=== PATIENT | male | born 1955 | race Caucasian/White ===

== ENCOUNTER 2020-03-06 14:20 | Emergency (ER) | payer MEDICARE, MEDICAID, SELFPAY ==
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
[2020-03-06 14:27] VITALS: BP 118/72; PULSE 81; RESP 20; TEMP 36.7; O2SAT 96
--- NOTE | 2020-03-06 14:30 | PC.NURSE ---
ERP SPEAKS WITH TWO FAMILY MEMBERS PATIENT HAS MEMORY PROBLEMS S/P BRAIN TUMOR REMOVAL. PT APPROPRIATE AND COOPERATIVE WITH CARE.
[2020-03-06 15:05] LABS: Basophils Absolute Auto 0.05 K/mm3 (0.00-0.10); Basophils Percent Auto 0.5 % (0.0-1.0); Eosinophils Absolute Auto 0.13 K/mm3 (0.02-0.50); Eosinophils Percent Auto 1.2 % (1.0-6.0); Hematocrit 37.7 % (40.0-54.0); Hemoglobin 12.2 g/dL (14.0-18.0); Immature Granulocyte Absolute 0.02 K/mm3 (0.00-0.00); Immature Granulocyte Percent A 0.2 % (0.0-0.0); Lymphocytes Absolute Auto 2.06 K/mm3 (1.10-4.50); Lymphocytes Percent Auto 19.8 % (18.0-42.0); Mean Corpuscular HGB Conc 32.4 g/dL (32.0-36.0); Mean Corpuscular Volume 92.9 fL (78.0-102.0); Mean Platelet Volume 9.6 fl (8.7-11.0); Monocytes Absolute Auto 0.77 K/mm3 (0.10-0.90); Monocytes Percent Auto 7.4 % (2.0-11.0); Neutrophils Absolute Auto 7.4 K/mm3 (1.7-7.2); Neutrophils Percent Auto 70.9 % (50.0-70.0); Platelet Count Result 259 K/mm3 (150-420); Red Blood Count 4.06 M/mm3 (4.70-6.10); Red Cell Distribution Width 13.9 % (11.6-14.4); White Blood Count 10.4 K/mm3 (4.8-10.8)
[2020-03-06 15:23] LABS: Alanine Aminotransferase 14 U/L (16-63); Albumin Level 2.9 g/dL (3.4-5.0); Alkaline Phosphatase 110 U/L (46-116); Anion Gap 7.3 mmol/L (7-16); Aspartate Amino Transferase 16 U/L (15-37); Bilirubin,Total 0.3 mg/dL (0.00-1.00); Blood Urea Nitrogen 11 mg/dL (7-18); Calcium 8.2 mg/dL (8.5-10.1); Carbon Dioxide 33 mmol/L (21-32); Chloride 106 mmol/L (98-108); Estimated Glomerular Filt Rate > 60; Glucose 89 mg/dL (70-99); Osmolality Calculated 292 mOsm/kg (285-295); Potassium 4.3 mmol/L (3.5-5.1); Sodium 142 mmol/L (136-145); Total Protein 5.7 g/dL (6.4-8.2)
[2020-03-06 15:26] LABS: Ammonia < 10 umol/L (11-32); Ethanol < 3 mg/dL (0-6)
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
[2020-03-06 16:50] VITALS: RESP 15
== END 2020-03-06 16:51 | disposition home or self-care (01) ==
PROVIDERS: Emergency Provider Family Medicine; PCP Nurse Practitioner Family
DX: S06.0X9A Concussion with loss of consciousness of unspecified duration, initial encounter (principal); V40.0XXA Car driver injured in collision with pedestrian or animal in nontraffic accident, initial encounter; S09.22XA Traumatic rupture of left ear drum, initial encounter; M54.2 Cervicalgia; I10 Essential (primary) hypertension
CPT/HCPCS: 36415; 70450; 72125; 80053; 80307; 82140; 85025; 99283; 99284

== ENCOUNTER 2020-12-31 10:55 | Inpatient (IN) | payer MEDICARE, MEDICAID, SELFPAY ==
[2020-12-31] VITALS (31 sets, daily range): BP systolic 83–115; BP diastolic 49–75; PULSE 57–99; RESP 11–28; TEMP 36.6–37.1; O2SAT 80–98; BMI 17.4
--- NOTE | ~2020-12-31 | XR_ITS ---
EXAMINATION: XR abdomen obstructive series DATE: 12/31/2020 19:17 INDICATION: Abdominal pain. TECHNIQUE: Upright and supine views of the abdomen were obtained. COMPARISON: CT abdomen and pelvis 12/31/2020 FINDINGS: There are dilated loops of small bowel in left abdomen. The colon is decompressed. No free peritoneal gas. There is a paramediastinal mass in right chest. IMPRESSION: 1. Dilated small bowel, likely adynamic ileus. 2. Paramediastinal mass in right chest, consistent with neoplasm. Reviewed, dictated and finalized at location A.
--- NOTE | ~2020-12-31 | CT_ITS ---
EXAMINATION: CT biopsy lung w/imaging DATE: 01/01/2021 12:01 INDICATION: Lung mass TECHNIQUE: The procedure including the risks and benefits was discussed with the patient. Risks discu ssed included infection, approximately 1/20 risk of symptomatic hemorrhage beyond mild hemoptysis, ap proximately 1/3 risk of pneumothorax, and approximately 1/10 risk of pneumothorax severe enough to wa rrant chest tube placement. The patient understood the risks and agreed to proceed. The patient was p laced prone. The skin overlying the left mid thoracic paraspinal region was prepped and draped in st erile fashion. Anesthetic was administered with 1% lidocaine subcutaneously. A 19 gauge outer needl e was advanced under CT guidance into the space between the posterior medial pleura of the right lung and the T8 vertebral body. A total of approximately 25 mL of sterile saline was injected to widen th e paraspinal space to allow for further extrapleural advancement of the needle into the lesion of int erest. A 20 gauge core biopsy needle was then used to obtain 4 core biopsy specimens. The needle was removed and the entry site was cleaned and dressed. There were no immediate complications. The dose- length product was 178.95 mGy-cm. FINDINGS: CT images demonstrate the outer needle tip just within a 5.7 x 5.2 cm left perihilar mass. Given the change in position of the mass between supine and prone imaging would favor a mediastinal m ass over either pleural-based mass or primary pulmonary mass. IMPRESSION: 1. Successful CT-guided biopsy of a 5.7 x 5.2 cm left perihilar mass most likely mediastinal although could also be of pleural or primary pulmonary origin. Reviewed, dictated and finalized at location A. IMPRESSION: 1. Successful CT-guided biopsy of a 5.7 x 5.2 cm left perihilar mass most likel y mediastinal although could also be of pleural or primary pulmonary origin.
--- NOTE | ~2020-12-31 | XR_ITS ---
EXAMINATION: XR chest 1V DATE: 01/01/2021 11:58 INDICATION: Status post right lung biopsy TECHNIQUE: frontal view of the chest was obtained. COMPARISON: Chest radiograph and CT dated 12/31/20 FINDINGS: And seen is a large mass projecting over the right hilum and right infrahilar region. Scattered mild subpleural lucency with subtle septal lines consistent with mild to moderate paraseptal emphysema bet ter appreciated on prior CT. No other airspace opacities, pulmonary edema, pleural effusion or pneumo thorax. The heart size is normal. Plate and screw fixation for C5-C7 anterior cervical spinal fusion. IMPRESSION: 1. No pneumothorax or other acute cardiopulmonary disease post percutaneous biopsy of a large right h ilar/infrahilar mass. 2. Mild to moderate paraseptal emphysema. Reviewed, dictated and finalized at location A. IMPRESSION: 1. No pneumothorax or other acute cardiopulmonary disease post percutaneous bio psy of a large right hilar/infrahilar mass. 2. Mild to moderate paraseptal emphysema.
--- NOTE | ~2020-12-31 | XR_ITS ---
EXAMINATION: XR chest 2V EXAM DATE: 12/31/2020 11:38 INDICATION: Generalized weakness, nausea. TECHNIQUE: Frontal and lateral projections of the chest obtained and reviewed. Comparison is made to prior examination from 08/05/2015. FINDINGS: Interval development of 10 cm mass, uncertain whether or not this is within the posterior mediastinum or the lung. It appears well defined. Some left basilar linear atelectasis. The lungs are hyperinflated which can be seen with chronic obstructive pulmonary disease (a clinical diagnosis of functional impairment), but is not diagnostic of it. No confluent consolidation, pneumothorax or pleu ral effusion suspected. Narrow cardiac silhouette. Cervical fusion hardware. There are no osteoblasti c or osteolytic lesions identified. IMPRESSION: 1. Lung or posterior mediastinal mass; recommend chest CT with contrast. 2. Left basilar atelectasis. 3. Hyperinflation. Reviewed, dictated and finalized at location A.
--- NOTE | ~2020-12-31 | NM_ITS ---
EXAMINATION: NM bone scan whole body DATE: 01/02/2021 14:38 INDICATION: Workup for metastatic prostate cancer TECHNIQUE: 22.9 mCi Tc-99m HDP was administered intravenously. Delayed whole-body scintigrams were o btained. COMPARISON: CT chest, abdomen and pelvis dated 12/31/2020 FINDINGS: Mild likely degenerative joint centered uptake at the right acromioclavicular joint and at the bilate ral great toes. Increased uptake at the lower cervical spine which is likely related to a C5-C7 anter ior spinal fusion procedure. Small focus of mild increased uptake at the left side of the posterior e lements of L5 likely related to moderate facet osteoarthritis at this location. Atypical focus of inc reased uptake in the region of the left mandible which given location and absence of additional suspi cious bone lesions is most likely related to dental disease. No other suspicious foci of abnormal bon e uptake to suggest metastatic disease. IMPRESSION: 1. Single atypical focus of increased uptake at the left side of the mandible which given the absence of any additional atypical/suspicious foci of bone uptake would favor dental disease over metastatic disease. Reviewed, dictated and finalized at location A. IMPRESSION: 1. Single atypical focus of increased uptake at the left side of the mandible w [facility] given the absence of any additional atypical/suspicious foci of bone uptak e would favor dental disease over metastatic disease.
--- NOTE | ~2020-12-31 | CT_ITS ---
EXAMINATION: CT chest abdomen pelvis w con DATE: 12/31/2020 12:09 INDICATION: Lung mass. Epigastric pain. TECHNIQUE: Computed tomography (CT) of the chest, abdomen, and pelvis was performed without intraveno us contrast. The dose-length product was 352.08 mGy-cm. COMPARISON: None FINDINGS: CHEST CT: 8.9 x 5.7 x 6.2 cm heterogeneously enhancing mass in the posterior medial right hemithorax, it is unc lear whether the mass arises within the lung, along the pleura or external to the pleura either from the chest wall or mediastinum. Mild to moderate paraseptal predominant emphysema. There is some compr essive atelectasis in the right lower lobe along side the previously noted mass along with mild depen dent atelectasis in the bilateral lower lobes. 5 mm subpleural nodule at the lateral right lower lobe . A couple small triangular intrafissural lymph nodes along the right major fissure. No pneumonia, pu lmonary edema or pleural effusion. Heart size is normal. Atherosclerotic coronary artery calcificatio n. No pericardial effusion. Thoracic aorta is normal in caliber with no dissection. No pathologically enlarged thoracic lymphadenopathy. Instrumented C6-C7 anterior spinal fusion with interbody fusion d evice and anterior plate and screw fixation. Bones are otherwise unremarkable. ABDOMEN/PELVIS CT: Liver, gallbladder, spleen, pancreas, bilateral adrenal glands and kidneys are normal. Multiple mildl y dilated fluid-filled loops of small bowel measuring maximal caliber of 3.7 cm in the jejunum the le ft upper quadrant and gradually tapering to normal caliber ileum in the pelvis without a discrete tra nsition point to suggest obstruction. Additional layering fluid consistent with diarrhea seen through out the colon. Moderate sigmoid diverticulosis without adjacent inflammatory change to suggest divert iculitis. Bladder is normal. No free intraperitoneal gas or fluid. No pathologically enlarged abdomin al or pelvic lymphadenopathy. There is calcified atherosclerosis of the aorta and many of the other a rteries. Bilateral L5 pars intra-articular is defects and moderate disc height loss at L5 on S1. IMPRESSION: 1. 8.9 x 5.7 x 6.2 cm mass at the posterior medial aspect of the mid to inferior right hemithorax con sistent with neoplasm which could be either benign or malignant in divided pulmonary, pleural or extr apleural origin. The mass would be amenable to CT-guided percutaneous biopsy which would be recommend ed. 2. Fluid throughout the large and small bowel with mild dilation of the proximal small bowel without a discrete transition point which would favor an ileus or gastroenteritis over obstruction. 3. Sigmoid diverticulosis. Reviewed, dictated and finalized at location A. IMPRESSION: 1. 8.9 x 5.7 x 6.2 cm mass at the posterior medial aspect of the mid to inferio r right hemithorax consistent with neoplasm which could be either benign or mal ignant in divided pulmonary, pleural or extrapleural origin. The mass would be amenable to CT-guided percutaneous biopsy which would be recommended. 2. Fluid throughout the large and small bowel with mild dilation of the proxima l small bowel without a discrete transition point which would favor an ileus or gastroenteritis over obstruction. 3. Sigmoid diverticulosis.
--- NOTE | 2020-12-31 11:00 | ECG_ITS ---
Measurements Intervals [place] Rate: 101 P: 78 IA: 147 QRS: 68 QRSD: 101 T: 76 QT: 325 QTc: 421 Interpretive Statements SINUS TACHYCARDIA ST-T WAVE ABNORMALITY IN ANTERIOR LEADS- CONSIDER ISCHEMIA BASELINE ARTIFACT- I, II, III, AVL, AVF, V5 ABNORMAL ECG Electronically Signed On 12-31-2020 11:28:22 CDT by Eric Dia D.O.
[2020-12-31] MEDS: ONDANSETRON INJ 4 MG/2 ML VIAL IV PUSH ×2 (11:21→18:12)
[2020-12-31] MEDS: MORPHINE SULFATE (*CRX) 4 MG/ML INJ IV PUSH (11:21)
[2020-12-31 11:31] LABS: Hematocrit 43.8 % (42.0-52.0); Mean Corpuscular Hemoglobin 28.9 pg (26-34); Mean Corpuscular Volume 90.3 fl (80-100); Mean Platelet Volume 10.2 fl (7.4-10.4); Platelet Count Result 262 k/mm3 (150-375); Red Blood Count 4.85 M/mm3 (4.6-6.20); Red Cell Distribution Width 14.3 % (11.5-14.5); White Blood Count 7.7 K/mm3 (4.5-10.0)
[2020-12-31 11:43] LABS: Alanine Aminotransferase 12 U/L (4-50); Albumin Level 3.8 g/dL (3.5-5.1); Alkaline Phosphatase 97 U/L (38-126); Anion Gap 9 mmol/L (8-16); Aspartate Amino Transferase 24 U/L (17-59); Bilirubin,Total 0.4 mg/dL (0.2-1.3); Blood Urea Nitrogen 37 mg/dL (9-20); Carbon Dioxide 32 mmol/L (22-30); Chloride 101 mmol/L (98-107); Estimated CRCL calculation 41 ml/min; Estimated Glomerular Filt Rate 51; Glucose 125 mg/dL (75-110); Lipase 30 U/L (23-300); Sodium 142 mmol/L (137-145)
[2020-12-31 11:50] LABS: Band Neutrophils Percent 21 % (0-6); Lymphocytes Absolute Manual 0.84 K/mm3 (1.1-4.5); Monocytes Absolute Manual 0.53 K/mm3 (0.1-0.90); Monocytes Percent Manual 7 % (3-9); Neutrophils Absolute Manual 6.31 K/mm3 (1.3-6.7); Neutrophils Percent Manual 61 % (46-73); Platelet Estimate Adequate (Adequate); Total Cells Counted 100
[2020-12-31] MEDS: SODIUM CHLORIDE 0.9% IV 1,000 ML 999 ML IV CONT (12:19)
[2020-12-31] MEDS: FAMOTIDINE 20 MG/2 ML VIAL IV PUSH (12:19)
--- NOTE | 2020-12-31 12:59 | ED.WEAKNESS ---
HPI - Weakness General Chief complaint: Weakness Stated complaint: weakness, N/V Time Seen by Provider: 12/31/20 10:57 History of Present Illness HPI Narrative: Patient is a 65-year-old male who presents ER with nausea and vomiting. Ongoing for last couple of days. Has not been able to keep down any food. Has associated crampy upper abdominal pain. Denies alcohol abuse or history of pancreatitis. No radiation of his pain. Denies shoulders or chills or sweats. Patient has the appearance of being very malnourished. He does report significant weight loss over the last year but cannot quantify how much weight he has lost. He reports history of prostate cancer that has been followed by an outside hospital reports its not requiring any treatment. Denies chest pain or chest pressure. No exertional shortness of breath. Patient found to be hypotensive in the field by EMS. No blood in stool or emesis. Related Data Home Medications Medication Instructions Recorded Confirmed hydrocodone-acetaminophen [[place]] 1 tablet PO Q4H PRN 12/31/20 12/31/20 pregabalin 150 mg PO BID 12/31/20 12/31/20 Allergies Allergy/AdvReac Type Severity Reaction Status Date / Time pantoprazole Allergy Chest Pain Verified 01/02/21 11:22 red dye Allergy Rash Verified 01/02/21 11:22 Seizure medication Allergy Other Uncoded 01/02/21 11:24 Review of Systems Review of Systems: All systems reviewed & are unremarkable except as noted in HPI and below Constitutional: Constitutional: Denies chills, Denies fever(s) and Reports weakness Comments: Excessive weight loss ENT: Denies nasal congestion and Denies sore throat Cardiovascular: Cardiovascular: Denies chest pain, Denies rapid heart rate and Denies radiating jaw, neck or arm pain Respiratory: Respiratory: Denies cough, Denies dyspnea and Denies wheezing Gastrointestinal: Gastrointestinal: Reports abdominal pain, Denies constipation, Denies diarrhea, Reports nausea and Reports vomiting Genitourinary: Genitourinary: Denies dysuria and Denies urinary frequency [facility] Past Medical History Medical History (Updated 01/02/21 @ 15:34 by Misha Rey PA-C) Brain tumor 2003 meningioma CAD (coronary artery disease) Chronic narcotic use CVA (cerebral vascular accident) Dysphagia GERD (gastroesophageal reflux disease) Mediastinal mass [place] (obstructive sleep apnea) Prostate cancer The patient stated that he is being seen outpatient for this Pulmonary HTN Smoker Systolic CHF 10/15/2018 TTE EF of 40% at [facility] Weight loss Surgical History Surgical History (Updated 01/02/21 @ 10:16 by Parish Lincoln MD) H/O brain surgery History of coronary artery stent placement x 5 2011 History of ear surgery Hx of fusion of cervical spine Family History Family History Father Colon cancer Mother Colon cancer Social History Social History (Updated 12/31/20 @ 18:39 by Marge Gonzales NP) Social History: The patient has 3 children. He is . He now lives home alone. His daughter was living with them until she moved out to live with her boyfriend. The patient is disabled. He denies any alcohol marijuana or illicit drugs. Patient continues to smoke a half a pack a cigarettes a day for least 50 years. 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 Smoking status: Current every day smoker Alcohol intake: never Substance use: never Gender identity (if verbalized by the patient): Female Sexual Orientation (if Verbalized by the Patient): Straight or Heterosexual Spiritual care concerns: No Exam Narrative: Exam Narrative: GENERAL: Chronically ill appearing, underweight, and in mild distress. HEAD: Normocephalic, atraumatic. EYES: PERRL and EOMI. ENT: Mucous membranes moist. Scar tissue left tympanic membrane with normal right tympanic membrane. CHEST: Clear to auscultation. No respiratory d
[2020-12-31 13:16] LABS: Add Urine Microscopic? YES; Appearance Urine Clear (Clear); Bilirubin Urine 1+ (Negative); Blood Urine Negative (Negative); Color Urine Amber (Yellow); Glucose Urine UA Negative (Negative); Ketones Urine Negative (Negative); Leukocyte Esterase Ur Negative LEU/UL (Negative); Mucus Urine Rare /lpf; Nitrate Urine Negative (Negative); Protein Urine 1+ mg/dL (Negative); RBC Urine 0-2 /hpf (0-2); Specific Grav Ur 1.048 (1.001-1.035); Squamous Epithelial Cell Urine Rare /hpf (Few); Urobilinogen Urine Negative mg/dL (<2.0); WBC Urine 0-3 /hpf
[2020-12-31] MEDS: LACTATED RINGERS 1,000 ML 125 ML IV CONT ×2 (15:40→23:21)
[2020-12-31] MEDS: HYDROcodone/acetaminophen (*CRX) 5-325 MG TABLET 1 TAB PO ×2 (15:40→20:05)
--- NOTE | 2020-12-31 18:31 | PM.IMHP ---
H&P: HPI History of Present Illness Date/Time: 12/31/20 18:31 this is a 65-year-old male patient who states that he has been losing weight over last 10 years. [facility] to see why he is losing weight. The patient states he does have prostate cancer. He is not currently undergoing any treatment. The patient stated he has ongoing nausea and vomiting since this past Wednesday. He is not able to keep any food down. He has had upper abdominal pain. Chills. The patient stated he has not had any GI bleed and has had a colonoscopy in the past which they did find diverticulosis. The patient appears to be malnourished. The patient stated that he is tried protein shakes and supplements in the past and did not help. The patient is being followed for his prostate cancer outside of the hospital and stated he was not requiring any treatment. The patient is only on gabapentin and [place] for pain that is all over. He has not had any fever chills. And pelvis CT was read as the following 1. 8.9 x 5.7 x 6.2 cm mass at the posterior medial aspect of the mid to inferior right hemithorax consistent with neoplasm which could be either benign or malignant in divided pulmonary, pleural or extrapleural origin. The mass would be amenable to CT-guided percutaneous biopsy which would be recommended. 2. Fluid throughout the large and small bowel with mild dilation of the proximal small bowel without a discrete transition point which would favor an ileus or gastroenteritis over obstruction. 3. Sigmoid diverticulosis. The patient was given Zofran, morphine, Pepcid and IV fluids in the emergency room. The patient is complaining of some abdominal cramping. The patient is being admitted for observation on the date of service of 12/31/2020 Chief Complaint: Nausea vomiting Review of Systems Review of Systems: All systems reviewed & are unremarkable except as noted in HPI and below Constitutional: Constitutional: Reports as per HPI and Reports no additional constitutional complaints Eyes: Eyes: Reports as per HPI and Reports no additional eye complaints ENT: Reports system reviewed and no additional complaints, except as documented and Reports Normal hearing present Cardiovascular: Cardiovascular: Reports no additional cardiovascular complaints Respiratory: Respiratory: Reports no additional respiratory complaints and Reports no additional respiratory complaints Gastrointestinal: Gastrointestinal: Reports as per HPI and Reports no additional gastrointestinal complaints Musculoskeletal: Musculoskeletal: Reports no additional musculoskeletal complaints Integumentary/Breasts: Skin/Breast: Reports system reviewed and no additional complaints, except as docu and Reports as per HPI Neurologic: Reports system reviewed and no additional complaints, except as documented, Reports as per HPI and Reports Normal hearing present Psychiatric: Psychiatric: Reports no additional psychiatric complaints and Reports as per HPI Endocrine: Endocrine: Reports no additional endocrine complaints Hematologic/Lymphatic: Hematologic/Lymphatic: Reports no additional hematologic/lymphatic complaints Allergic/Immunologic: Allergic/Immunologic: Reports no additional allergic/immunologic complaints [facility] Past Medical History Medical History (Updated 12/31/20 @ 18:47 by Marge Gonzales NP) Brain tumor GERD (gastroesophageal reflux disease) Prostate cancer The patient stated that he is being seen outpatient for this Surgical History Surgical History (Updated 12/31/20 @ 13:42 by Danilo Bonds MD) H/O brain surgery History of ear surgery Hx of fusion of cervical spine Family History Family History Father Colon cancer Mother Colon cancer Social History Social History (Updated 12/31/20 @ 18:39 by Marge Gonzales NP) Social History: The patient has 3 children. He is
[2020-12-31] MEDS: PREGABALIN (*CRX) 75 MG CAPSULE 150 MG PO (20:03)
[2021-01-01] MEDS: HYDROcodone/acetaminophen (*CRX) 5-325 MG TABLET 1 TAB PO ×5 (02:47→20:54)
[2021-01-01] MEDS: ONDANSETRON INJ 4 MG/2 ML VIAL IV PUSH ×2 (02:48→20:48)
[2021-01-01 06:00] VITALS: BP 96/47; PULSE 52; RESP 20; TEMP 36.4; O2SAT 93
[2021-01-01 06:46] LABS: Basophils Percent Auto 0.5 % (0.2-1.2); Eosinophils Absolute Auto 0.2 K/mm3 (0-0.3); Eosinophils Percent Auto 2.2 % (0-4.4); Hematocrit 33.1 % (42.0-52.0); Hemoglobin 10.5 g/dL (14.0-18.0); Immature Granulocyte Absolute 0.01 K/mm3 (0.00-0.031); Immature Granulocyte Percent A 0.1 % (0-0.5); Lymphocytes Absolute Auto 2.31 K/mm3 (0.9-3.2); Lymphocytes Percent Auto 31.7 % (18.3-44.2); Mean Corpuscular HGB Conc 31.7 g/dl (32-36); Mean Corpuscular Hemoglobin 29.2 pg (26-34); Mean Corpuscular Volume 92.2 fl (80-100); Mean Platelet Volume 10.5 fl (7.4-10.4); Monocytes Absolute Auto 0.9 K/mm3 (0.1-0.6); Monocytes Percent Auto 11.9 % (2.6-8.5); Neutrophils Absolute Auto 3.9 K/mm3 (1.3-6.7); Neutrophils Percent Auto 53.6 % (45.5-73.1); Platelet Count Result 190 k/mm3 (150-375); Red Blood Count 3.59 M/mm3 (4.6-6.20); Red Cell Distribution Width 14.3 % (11.5-14.5); White Blood Count 7.3 K/mm3 (4.5-10.0)
[2021-01-01 06:54] LABS: Alanine Aminotransferase 7 U/L (4-50); Albumin Level 2.6 g/dL (3.5-5.1); Alkaline Phosphatase 67 U/L (38-126); Anion Gap 2 mmol/L (8-16); Aspartate Amino Transferase 21 U/L (17-59); Bilirubin,Total 0.3 mg/dL (0.2-1.3); Blood Urea Nitrogen 24 mg/dL (9-20); Calcium 7.3 mg/dL (8.4-10.2); Carbon Dioxide 29 mmol/L (22-30); Chloride 107 mmol/L (98-107); Estimated CRCL calculation 55 ml/min; Estimated Glomerular Filt Rate > 60; Glucose 77 mg/dL (75-110); Lactate Dehydrogenase 322 U/L (313-618); Magnesium 1.6 mg/dL (1.6-2.3); Potassium 3.7 mmol/L (3.4-5.0); Sodium 138 mmol/L (137-145)
[2021-01-01 07:49] LABS: Partial Thromboplastin Time 35.5 SECONDS (22.3-36.8)
[2021-01-01 07:54] LABS: Prothrombin Time 14.2 Seconds (11.1-14.7)
[2021-01-01] MEDS: LACTATED RINGERS 1,000 ML 125 ML IV CONT ×2 (09:08→18:15)
[2021-01-01] MEDS: NICOTINE (*PBKC) 21 MG PATCH 1 PATCH TRANSDERM (09:09)
[2021-01-01] MEDS: PREGABALIN (*CRX) 75 MG CAPSULE 150 MG PO ×2 (09:09→20:48)
[2021-01-01 11:56] VITALS: BP 96/47; PULSE 52; RESP 20; O2SAT 93
[2021-01-01 11:58] VITALS: BMI 17.4
[2021-01-01 11:59] VITALS: BP 98/56; PULSE 55; RESP 20; O2SAT 97
[2021-01-01 14:00] VITALS: BP 111/46; PULSE 64; RESP 16; TEMP 36.3; O2SAT 98
--- NOTE | 2021-01-01 14:40 | PM.IMPN ---
Progress Note: A&P Assessment and Plan (1) Lung mass: Code(s): R91.8 - Other nonspecific abnormal finding of lung field Status: Acute Assessment and Plan: CT biopsy completed today -await results -hematology referral (2) Malnutrition: Code(s): E46 - Unspecified protein-calorie malnutrition Status: Acute Assessment and Plan: Patient has had weight loss and problems eating for a while -he has a allergy to pantoprazole either Navi Bernabe syndrome or chest pain, he cannot remember -he has been having problems swallowing, I am going to ask GI to see him as he is malnourished and he may need an EGD. It could also be mass effect/feeling full from his mediastinal mass. -continue with supplements (3) Dehydration: Code(s): E86.0 - Dehydration Status: Acute Assessment and Plan: Continue with IV fluids (4) Prostate cancer: Code(s): C61 - Malignant neoplasm of prostate Status: Inactive Assessment and Plan: History of prostate cancer but I do not believe he is undergoing treatment -PSA pending Time Spent With Patient Time with patient: 25 - 35 minutes Subjective Date/time seen: 01/01/21 14:40 Interval history: Pt is a 65-year-old male here for weakness, weight loss, and dysphagia found to have mediastinal pleural mass. Patient was seen today after his biopsy and states he is doing okay. He says he has pain from his head to his toes which has been going on for years and is why he sees pain management. He has no new pain at this time. Pt denies nausea, vomiting, fevers, chills, constipation, diarrhea, chest pain, sob, or abdominal pain. He says he does not want to eat the clear liquid diet because it gives him heartburn. He has been having heartburn for many many months and is even having trouble eating and/swallowing at times. He has an allergy to pantoprazole but he can't exactly remember what it is. It is either Navi Bernabe syndrome or chest pains. Daughter at bedside and plan discussed Review of Systems Review of Systems: All systems reviewed & are unremarkable except as noted in HPI and below Exam Narrative: Exam Narrative: General: Underweight patient resting comfortably in bed in no acute distress HEENT: normocephalic Neck: supple Neuro: Alert and oriented x4 CV:RRR Resp:CTA Abd: Soft, non distended. No pain to palpation. Positive bowel sounds Extremities: No swelling, erythema, or pain to palpation. Objective Data Vital Signs Vital Signs: Vital Signs - 24 hr 12/31/20 14:48 12/31/20 15:19 12/31/20 15:33 Temperature 97.9 F Pulse Rate 74 78 93 Respiratory Rate 16 20 16 Blood Pressure 105/59 L 100/61 Pulse Oximetry 96 93 12/31/20 22:00 01/01/21 06:00 01/01/21 11:56 Temperature 98.8 F 97.6 F Pulse Rate 57 L 52 L 52 L Respiratory Rate 16 20 20 Blood Pressure 98/50 L 96/47 L 96/47 L Pulse Oximetry 97 93 93 01/01/21 11:59 Temperature Pulse Rate 55 L Respiratory Rate 20 Blood Pressure 98/56 L Pulse Oximetry 97 Intake/Output Intake/Output: Intake & Output 12/29/20 12/30/20 12/31/20 01/01/21 23:59 23:59 23:59 23:59 Intake Total 2225 1320 Balance 2225 1320 Meds/Results Medications: Active Medications Generic Name Dose Route Start Last Admin Trade Name Freq PRN Reason Stop Dose Admin Acetaminophen 650 mg 12/31/20 13:29 Acetaminophen 325 Mg Tablet PO Q4H PRN Mild Pain (1-3) or Fever Hydrocodone Bitart/Acetaminophen 1 tab 12/31/20 13:29 01/01/21 12:58 Hydrocodone/Acetaminophen (*Crx) 5-325 Mg Tablet PO 1 tab Q4H PRN Administration Pain Rated 4-6 Dicyclomine HCl 20 mg 12/31/20 18:32 Dicyclomine Hcl 10 Mg Capsule PO QID PRN Abdominal Cramping Lactated Ringer's 1,000 mls @ 125 mls/hr 12/31/20 13:30 01/01/21 09:08 Lr - Lactated Ringers Iv IV CONT 125 mls/hr .Q8H REX Administration Nicotine 1 patch
--- NOTE | 2021-01-01 14:55 | PDONCCN ---
HPI - Date of Consult Date/Time: 01/01/21 14:55 Requesting Physician: Nataly Blanca PA-C Primary Care Provider: [facility] - Consult Narrative Reason for consult: New lung mass and history of prostate cancer Narrative: Iftikhar Jimenez is a 65 year old male with history prostate cancer diagnosed about one year ago at [facility], untreated, admitted for weakness, weight loss and dysphagia, and found to have a mediastinal vs. pleural mass on CT, admitted for further workup of that. Patient states has ongoing n/v since last Wednesday, losing weight over the last years, but currently cannot keep food down due to heartburn. Reports upper abd pain and cramping. Chest, abd, pelvis CT showed: 1. 8.9 x 5.7 x 6.2 cm mass at the posterior medial aspect of the mid to inferior right hemithorax consistent with neoplasm which could be either benign or malignant in divided pulmonary, pleural or extrapleural origin. The mass would be amenable to CT-guided percutaneous biopsy which would be recommended. 2. Fluid throughout the large and small bowel with mild dilation of the proximal small bowel without a discrete transition point which would favor an ileus or gastroenteritis over obstruction. 3. Sigmoid diverticulosis. The patient was given Zofran, morphine, Pepcid and IV fluids in the emergency room. Was admitted for observation. Abd-xray notable for dilated small bowel, likely adynamic ileus, paramediastinal mass in right chest, consistent with neoplasm. Reports soft BM this morning, no blood. Reports pain throughout entire body for years, no etiology. This AM had CT-guided biopsy of mediastinal mass. Denies fevers, chills, night sweats, diarrhea, constipation, SOB, dyspnea, dysuria, frequent urination, flank pain or other symptoms. Reports diagnosis of prostate cancer made at [facility] about one year ago, was offered surgery, but pt declined. Physician reportedly said treatment was not urgent at that time. Reports initial PSA was 10, then one year later was 14, so doubling time was perhaps not as concerning at that time. Records from [place] have been requested. Also has history of meningioma s/p resection. Review of Systems - Constitutional Reports anorexia, Reports body ache(s), Reports chills, Reports fatigue, Reports lack of energy, Reports weakness, Reports weight loss - ENT Reports other Comments: dysphagia - Gastrointestinal Reports abdominal pain, Reports difficulty swallowing, Reports nausea - Musculoskeletal Reports body aches, Reports decreased muscle mass - Neurologic Reports system reviewed and no additional complaints, except as documented, Reports hearing normal, Reports weakness PMFSH Medical History: Medical History (Last Updated 12/31/20 @ 18:47 by Marge Gonzales NP) Brain tumor GERD (gastroesophageal reflux disease) Prostate cancer The patient stated that he is being seen outpatient for this Surgical History: Surgical History (Last Updated 12/31/20 @ 13:42 by Danilo Bonds MD) H/O brain surgery History of ear surgery Hx of fusion of cervical spine Family History: Family History (Last Reviewed 12/31/20 @ 18:37 by Marge Gonzales NP) Father Colon cancer Mother Colon cancer - Social History Social History: Social History (Last Updated 12/31/20 @ 18:39 by Marge Gonzales NP) Gender Identity: Gender identity (if verbalized by the patient): Female Sexual Orientation: Sexual Orientation (if Verbalized by the Patient): Straight or Heterosexual Alcohol Use: Alcohol intake: never Substance Use: Substance use: never Others: Spiritual care concerns: No Smoking Status: Smoking status: Current every day smoker Meds Home Medications Medication Instructions Recorded Confirmed Type hydrocodone-acetaminophen [[place]] 1 tablet PO Q4H PRN 12/31/20 12/31/20 History pregabalin 150 mg PO BID 12/31/20 12/31/20 History Allergies Al
--- NOTE | 2021-01-01 17:59 | WPDGICN ---
Assessment and Plan Assessment and plan (1) Dysphagia: Code(s): R13.10 - Dysphagia, unspecified Status: Acute Assessment and Plan: will assess with egd to assess if stricture, also could be malignancy (intrinsic or extrinsic mass pressing on esophagus) also noted abnormal reading of CT scan and worsening anemia but denies melena (2) Mediastinal mass: Code(s): J98.59 - Other diseases of mediastinum, not elsewhere classified Status: Acute Assessment and Plan: biopsy was done today, oncology on board (3) Weight loss: Code(s): R63.4 - Abnormal weight loss Status: Acute Assessment and Plan: pending bx (4) GERD (gastroesophageal reflux disease): Code(s): K21.9 - Gastro-esophageal reflux disease without esophagitis Status: Inactive Assessment and Plan: protonix at home egd tomorrow (5) Malnutrition: Code(s): E46 - Unspecified protein-calorie malnutrition Status: Acute (6) Smoker: Code(s): F17.200 - Nicotine dependence, unspecified, uncomplicated Status: Acute Assessment and Plan: needs to quit smoking GI Consult Note Consult date/time: 01/01/21 17:59 Reason for consult: gerd, dysphagia, weight loss HPI: Iftikhar Jimenez is a 65 year old male with history of smoking here with progressive worsening gerd symptoms with burping and feeling sensation that is more difficult for food to get down, also ongoing weight loss, had colonoscopy years ago with diverticulitis and last year stool card that was negative. [facility] and [facility] multiple tests to see why he is losing weight, given antacids but can not tolerate now is using protonix. ER evaluated with CT scan that was reviwed, 8.9 x 5.7 x 6.2 cm mass at the posterior medial aspect of the mid to inferior right hemithorax consistent with neoplasm which could be either benign or malignant in divided pulmonary, pleural or extrapleural origin, fluid throughout the large and small bowel with mild dilation of the proximal small bowel without a discrete transition point which would favor an ileus or gastroenteritis over obstruction, sigmoid diverticulosis. He had biopsy of lesion by CT guided, he is eating soft food now. Review of Systems Constitutional: Constitutional: Reports weight loss Eyes: Eyes: Denies blurry vision ENT: Reports Normal hearing present Cardiovascular: Cardiovascular: Denies chest pain Respiratory: Respiratory: Denies dyspnea Gastrointestinal: Gastrointestinal: Reports dysphagia, Reports dyspepsia and Reports nausea Genitourinary: Genitourinary: Denies dysuria Musculoskeletal: Musculoskeletal: Denies neck pain Integumentary/Breasts: Skin/Breast: Denies dry skin Neurologic: Denies headache(s) Psychiatric: Psychiatric: Reports no additional psychiatric complaints PMFSH Past Medical History Medical History (Updated 01/01/21 @ 18:03 by Saqib Tucker MD) Brain tumor Dysphagia GERD (gastroesophageal reflux disease) Mediastinal mass Prostate cancer The patient stated that he is being seen outpatient for this Smoker Weight loss Surgical History Surgical History (Updated 01/01/21 @ 15:12 by Tania Douglass MD) H/O brain surgery History of ear surgery Hx of fusion of cervical spine Family History Family History Father Colon cancer Mother Colon cancer Social History Social History (Updated 12/31/20 @ 18:39 by Marge Gonzales NP) Social History: The patient has 3 children. He is . He now lives home alone. His daughter was living with them until she moved out to live with her boyfriend. The patient is disabled. He denies any alcohol marijuana or illicit drugs. Patient continues to smoke a half a pack a cigarettes a day for least 50 years. The patient does not have a power insurance attorney and would like to be a full code. Smoking sta
[2021-01-01 22:00] VITALS: BP 109/59; PULSE 68; RESP 16; TEMP 36.8; O2SAT 95
[2021-01-01] MEDS: CALCIUM CARBONATE (TUMS) 500 MG (200 MG ELEMENTAL) PO (23:18)
[2021-01-02] VITALS (8 sets, daily range): BP systolic 89–111; BP diastolic 43–67; PULSE 54–69; RESP 16–20; TEMP 36.2–37.3; O2SAT 90–98
[2021-01-02] MEDS: HYDROcodone/acetaminophen (*CRX) 5-325 MG TABLET 1 TAB PO ×6 (00:25→22:34)
[2021-01-02] MEDS: ONDANSETRON INJ 4 MG/2 ML VIAL IV PUSH ×6 (00:25→22:35)
[2021-01-02] MEDS: LACTATED RINGERS 1,000 ML 125 ML IV CONT ×3 (02:25→21:27)
[2021-01-02 06:41] LABS: Hematocrit 32.5 % (42.0-52.0); Hemoglobin 10.3 g/dL (14.0-18.0); Mean Corpuscular HGB Conc 31.7 g/dl (32-36); Mean Corpuscular Volume 91.5 fl (80-100); Mean Platelet Volume 10.2 fl (7.4-10.4); Platelet Count Result 198 k/mm3 (150-375); Red Blood Count 3.55 M/mm3 (4.6-6.20); Red Cell Distribution Width 13.9 % (11.5-14.5); White Blood Count 8.6 K/mm3 (4.5-10.0)
[2021-01-02 06:55] LABS: Potassium 3.7 mmol/L (3.4-5.0)
[2021-01-02 07:00] LABS: Anion Gap 2 mmol/L (8-16); Blood Urea Nitrogen 14 mg/dL (9-20); Calcium 7.5 mg/dL (8.4-10.2); Carbon Dioxide 31 mmol/L (22-30); Chloride 104 mmol/L (98-107); Estimated CRCL calculation 55 ml/min; Estimated Glomerular Filt Rate > 60; Glucose 81 mg/dL (75-110); Magnesium 1.5 mg/dL (1.6-2.3); Phosphorus 2.4 mg/dL (2.5-4.5); Sodium 137 mmol/L (137-145)
[2021-01-02] MEDS: NICOTINE (*PBKC) 21 MG PATCH 1 PATCH TRANSDERM (08:42)
[2021-01-02] MEDS: PREGABALIN (*CRX) 75 MG CAPSULE 150 MG PO ×2 (08:49→21:26)
[2021-01-02] MEDS: MAGNESIUM SULF 1 GM/D5W 100 ML 1 GM/100 ML BAG IVPB (09:56)
--- NOTE | 2021-01-02 10:15 | WPDANESEPPF ---
Anes - Initial Pre Proc Eval Procedure: Operation Date: 01/02/21 14:30 Proposed Procedures p Esophagogastroduodenoscopy - Saqib Tucker MD Date/Time: 01/02/21 10:15 Surgeon: Misha Rey PA-C Pre Op Diagnosis: dehydration, lung mass Patient Data Age: 65 Gender: M Height: 1.83 m Weight: 58.4 kg Last Vital Signs Temp 37.3 C 01/02/21 05:44 Pulse 69 01/02/21 05:44 Resp 18 01/02/21 05:44 BP 100/60 01/02/21 06:10 Pulse Ox 90 01/02/21 05:44 Allergies Allergy/AdvReac Type Severity Reaction Status Date / Time pantoprazole Allergy Chest Pain Verified 01/02/21 11:22 red dye Allergy Rash Verified 01/02/21 11:22 Seizure medication Allergy Other Uncoded 01/02/21 11:24 Home Medications Medication Instructions Recorded Confirmed Type hydrocodone-acetaminophen [[place]] 1 tablet PO Q4H PRN 12/31/20 12/31/20 History pregabalin 150 mg PO BID 12/31/20 12/31/20 History Laboratory Tests 01/01/21 01/02/21 01/02/21 12:55 06:19 06:19 WBC 8.6 K/mm3 K/mm3 (4.5-10.0) RBC 3.55 M/mm3 L M/mm3 (4.6-6.20) Hgb 10.3 g/dL L g/dL (14.0-18.0) Hct 32.5 % L % (42.0-52.0) MCV 91.5 fl fl (80-100) MCH 29.0 pg pg (26-34) MCHC 31.7 g/dl L g/dl (32-36) RDW 13.9 % % (11.5-14.5) Plt Count 198 k/mm3 k/mm3 (150-375) MPV 10.2 fl fl (7.4-10.4) Sodium 137 mmol/L mmol/L (137-145) Potassium 3.7 mmol/L mmol/L (3.4-5.0) Chloride 104 mmol/L mmol/L (98-107) Carbon Dioxide 31 mmol/L H mmol/L (22-30) Anion Gap 2 mmol/L L mmol/L (8-16) BUN 14 mg/dL D mg/dL (9-20) Creatinine 1.00 mg/dL mg/dL (0.7-1.3) Estim Creat Clear Calc 55 ml/min ml/min Estimated GFR > 60 (59 - ) Glucose 81 mg/dL mg/dL (75-110) Calcium 7.5 mg/dL L mg/dL (8.4-10.2) Phosphorus 2.4 mg/dL L mg/dL (2.5-4.5) Magnesium 1.5 mg/dL L mg/dL (1.6-2.3) Free PSA Pending % Free PSA Pending Total PSA Pending Patient hx anesthesia problems: none Family hx anesthesia problems: none PMFSH Past Medical History Medical History (Updated 01/02/21 @ 11:28 by Parish Lincoln MD) Brain tumor 2003 meningioma CAD (coronary artery disease) Chronic narcotic use CVA (cerebral vascular accident) Dysphagia GERD (gastroesophageal reflux disease) Mediastinal mass LIBRADO (obstructive sleep apnea) Prostate cancer The patient stated that he is being seen outpatient for this Pulmonary HTN Smoker Weight loss Surgical History Surgical History (Updated 01/02/21 @ 10:16 by Parish Lincoln MD) H/O brain surgery History of coronary artery stent placement x 5 2011 History of ear surgery Hx of fusion of cervical spine Family History Family History Father Colon cancer Mother Colon cancer Social History Social History (Updated 12/31/20 @ 18:39 by Marge Gonzales NP) Social History: The patient has 3 children. He is . He now lives home alone. His daughter was living with them until she moved out to live with her boyfriend. The patient is disabled. He denies any alcohol marijuana or illicit drugs. Patient continues to smoke a half a pack a cigarettes a day for least 50 years. The patient does not have a power civil attorney and would like to be a full code. Smoking status: Current every day smoker Alcohol intake: never Substance use: never Gender identity (if verbalized by the patient): Female Sexual Orientation (if Verbalized by the Patient): Straight or Heterosexual Spiritual care concerns: No Anes - Eval Final PreProcedure Day of Procedure 01/02/21 10:15 Patient weight: cachectic Heart: regular rate and rhythm Lungs: clear to auscultation and normal air movement Air
[2021-01-02] MEDS: LACTATED RINGERS 1,000 ML 150 ML IV CONT (11:25)
--- NOTE | 2021-01-02 15:25 | PM.IMPN ---
Progress Note: A&P Assessment and Plan (1) Lung mass: Code(s): R91.8 - Other nonspecific abnormal finding of lung field Status: Acute Assessment and Plan: CT biopsy completed on 01/01. Pending results. Oncology consulted and appreciate recommendations. await results Await further rec from Oncology Will need prompt f/u as outpatient after discharge (2) Malnutrition: Code(s): E46 - Unspecified protein-calorie malnutrition Status: Acute Assessment and Plan: Patient has had weight loss and problems eating for a while. Most of his n/v is associated with his reflux; has an allergy to pantoprazole either Navi Bernabe syndrome or chest pain, he cannot remember. 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 Resume diet per GI rec Will add supplements Will add pepcid Q12hr with tums prn for reflux Will do Dietitian consult Monitor Hopefully d/c in 1-2 days if tolerating diet and okay with other specialists (3) Dehydration: Code(s): E86.0 - Dehydration Status: Acute Assessment and Plan: Continue with IV fluids until tolerating diet (4) Prostate cancer: Code(s): C61 - Malignant neoplasm of prostate Status: Inactive Assessment and Plan: History of prostate cancer but I do not believe he is undergoing treatment PSA pending Post void bladder scan today to ensure he is not retaining. (5) Constipation: Code(s): K59.00 - Constipation, unspecified Status: Acute Assessment and Plan: Patient has chronic opioid use likely causing constipation. Schedule miralax daily Will add Fiber con BID Instructed him to taper miralax to BMs Subjective Date/time seen: 01/02/21 15:25 Interval history: Patient is a 65 yo M with history of CAD, CHF (systolic, EF 40% in 2018), prostate cancer, GERD, previous CVA, among other comorbid conditions who is seen in follow up for evaluation of mediastinal mass and for n/v and malnutrition. Patient states he feels somewhat better today, but has been NPO today. He notes his n/v usually stem from his reflux. He is eager to try a meal today. He notes constipation but also notes chronic opioid use due to chronic pain. Daughter in room at time of visit was concerned about urinary retention, however, today he tells me he has been urinating without issue; no urinary complaints. He has some vague abdominal pain associated with his reflux. No other complaints at the moment. Denies f/c/s,dizziness, lightheadedness, cp/palpitations, changes in sob/cough, calf pain/swelling. Review of Systems Review of Systems: All systems reviewed & are unremarkable except as noted in HPI and below Exam Narrative: Exam Narrative: General: Patient resting supine in bed in no acute distress. Daughter in room at time of visit. Thin/cachectic appearing male; appears slightly older then stated age HEENT: Normocephalic, EOMI, oral mucosa moist. Cardiovascular: Rate and rhythm are regular. No notable murmur, rub, or gallop. Respiratory: Lungs clear to auscultation all flores. Non-labored breathing. Abdomen: guarding, mild TTP in LLQ, non-distended, bowel sounds present. Extremities: Peripheral pulses intact. No edema. NTTP b/l calves Neuro: No focal neurological deficits. Speech is clear. Objective Data Vital Signs Vital Signs: Last Vital Signs Temp 97.5 F L 01/02/21 13:00 Pulse 64 01/02/21 13:00 Resp 20 01/02/21 13:00 BP 111/65 01/02/21 13:00 Pulse Ox 95 01/02/21 13:00 Intake/Output Intake/Output: Intake & Output 12/30/20 12/31/20 01/01/21 01/02/21 23:59 23:59 23:59 23:59 Intake Total 2223 2710 2150 Balance 7 0 2150 Meds/Results Medications: Active Medications
[2021-01-02] MEDS: calcium polycarbophiL 625 MG TABLET PO (16:18)
[2021-01-02] MEDS: polyethylene glycoL 3350 17 GM POWD.PACK PO (16:18)
[2021-01-02] MEDS: FAMOTIDINE 20 MG TABLET PO (21:26)
[2021-01-03] MEDS: HYDROcodone/acetaminophen (*CRX) 5-325 MG TABLET 1 TAB PO ×2 (02:44→07:46)
[2021-01-03] MEDS: ONDANSETRON INJ 4 MG/2 ML VIAL IV PUSH (02:48)
[2021-01-03 05:45] VITALS: BP 95/51; PULSE 63; RESP 17; TEMP 36.8; O2SAT 91
[2021-01-03 06:12] LABS: Hematocrit 31.6 % (42.0-52.0); Hemoglobin 10.1 g/dL (14.0-18.0); Mean Corpuscular Hemoglobin 28.6 pg (26-34); Mean Corpuscular Volume 89.5 fl (80-100); Mean Platelet Volume 10.4 fl (7.4-10.4); Platelet Count Result 216 k/mm3 (150-375); Red Blood Count 3.53 M/mm3 (4.6-6.20); Red Cell Distribution Width 13.5 % (11.5-14.5); White Blood Count 9.9 K/mm3 (4.5-10.0)
[2021-01-03 06:24] LABS: Albumin Level 2.5 g/dL (3.5-5.1); Anion Gap 2 mmol/L (8-16); Blood Urea Nitrogen 9 mg/dL (9-20); Calcium 7.5 mg/dL (8.4-10.2); Carbon Dioxide 31 mmol/L (22-30); Chloride 104 mmol/L (98-107); Estimated CRCL calculation 61 ml/min; Estimated Glomerular Filt Rate > 60; Glucose 80 mg/dL (75-110); Magnesium 1.6 mg/dL (1.6-2.3); Phosphorus 2.6 mg/dL (2.5-4.5); Potassium 3.5 mmol/L (3.4-5.0); Sodium 137 mmol/L (137-145)
--- NOTE | 2021-01-03 07:58 | WPDANESPN ---
Anes - Prog Note Post-Op Date/Time: 01/03/21 07:58 Cardiovascular status: normal Respiratory status: normal Airway patency: baseline Mental status: baseline Post-Op hydration status: normal Vital Signs: Last Vital Signs Temp 36.8 C 01/03/21 05:45 Pulse 63 01/03/21 05:45 Resp 17 01/03/21 05:45 BP 95/51 L 01/03/21 05:45 Pulse Ox 91 01/03/21 05:45 Pain Score (VAS): 0 I/O: Intake & Output 01/02/21 01/02/21 01/03/21 15:59 23:59 07:59 Intake Total 1150 1120 200 Balance 1150 1120 200 Laboratory Tests 01/03/21 05:32 01/03/21 05:32 01/03/21 01/03/21 05:32 05:32 WBC 9.9 RBC 3.53 L Hgb 10.1 L Hct 31.6 L MCV 89.5 MCH 28.6 MCHC 32.0 RDW 13.5 Plt Count 216 MPV 10.4 Sodium 137 Potassium 3.5 Chloride 104 Carbon Dioxide 31 H Anion Gap 2 L BUN 9 D Creatinine 0.90 Estim Creat Clear Calc 61 Estimated GFR > 60 Glucose 80 Calcium 7.5 L Phosphorus 2.6 Magnesium 1.6 Albumin 2.5 L Post-procedural complaints: none Patient Feedback: Patient satisfied with anesthetic care.
[2021-01-03 09:36] VITALS: O2SAT 95
[2021-01-03] MEDS: FAMOTIDINE 20 MG TABLET PO (09:37)
[2021-01-03] MEDS: NICOTINE (*PBKC) 21 MG PATCH 1 PATCH TRANSDERM (09:37)
[2021-01-03] MEDS: PREGABALIN (*CRX) 75 MG CAPSULE 150 MG PO (09:37)
[2021-01-03] MEDS: polyethylene glycoL 3350 17 GM POWD.PACK PO (09:37)
[2021-01-03] MEDS: calcium polycarbophiL 625 MG TABLET PO (09:37)
--- NOTE | 2021-01-03 10:54 | PM.DS ---
DS: Admitting Diagnosis Admitting Diagnosis Admitting Diagnosis: N/v, lung mass DS: Discharge Diagnosis Discharge Diagnosis (1) Lung mass: Code(s): R91.8 - Other nonspecific abnormal finding of lung field Status: Acute Assessment and Plan: CT biopsy completed on 01/01. Pending results. Oncology consulted and appreciate recommendations. Nuc med bone scan unremarkable for signs of mets Follow results after discharge F/u with Oncology; Dr. Qiu's information given (2) Malnutrition: Code(s): E46 - Unspecified protein-calorie malnutrition Status: Acute Assessment and Plan: Patient has had weight loss and problems eating for a while. Most of his n/v is associated with his reflux; has an allergy to pantoprazole either Navi Bernabe syndrome or chest pain, he cannot remember. 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 Diet resumed; tolerating well Continue supplements Will continue pepcid Q12hr with tums prn for reflux Dietitian consult during stay D/c today (3) Dehydration: Code(s): E86.0 - Dehydration Status: Acute Assessment and Plan: Appears well hydrated now IV fluids during stay (4) Prostate cancer: Code(s): C61 - Malignant neoplasm of prostate Status: Inactive Assessment and Plan: History of prostate cancer but I do not believe he is undergoing treatment PSA pending; will follow (5) Constipation: Code(s): K59.00 - Constipation, unspecified Status: Acute Assessment and Plan: Patient has chronic opioid use likely causing constipation. Schedule miralax daily; he understands to titrate this to his BMs Encouraged PO fiber DS: Summary Hospital Course Reason for hospitalization: N/V, dehydration, lung mass Hospital Course: Date of arrival: 12/31/20 Date of discharge: 01/03/21 Patient is a 65 yo M with history of CAD, CHF (systolic, EF 40% in 2018), prostate cancer, GERD, previous CVA, among other comorbid conditions who presented to the ED on 12/31 with complaints of nausea and vomiting for the previous couple of days. While in the ED, he reported significant unintentional weight loss for the previous year. CT c/a/p performed revealed a 8.9 x 5.7 x 6.2 sm mass in posterior medial aspect of mid to inferior right hemithorax consistent with neoplasm which could be benign or malignant in divided pulmonary, pleural or extrapleural origin. There were also findings suggestive of ileus vs gastroenteritis vs less likely obstruction. Patient continued to have n/v and abdominal crmaping despite zofran, morphine, pepcid, and IV fluids in ED. Patient admitted to the hospitalist service under this setting for further management/treatment. Please see H&P for further details. After admission, Dr. Melara (Oncology) was consulted for further input. He underwent a CT guided biopsy of this mass; results still pending. She ordered a nuclear medicine bone scan given his body aches; this was unremarkable for metastatic disease; possible dental abscess noted and instructed patient to follow up with PCP and/or an oral surgeon. PSA was collected and is pending. Patient continued to have difficulty tolerating diet thus Dr. Tucker (GI) was consulted. He underwent an EGD on 01/02 with findings of esophageal stenosis likely secondary to the mass; diet was resumed. His n/v improved with addition of antacids of famotidine and tums. He was started on a bowel regimen of miralax and fiber, as well. Patient's symptoms overall improved during stay and he was tolerating diet by day of discharge. Dietitian was consulted and recommended supplements. Plan was for him to follow up with his PCP and with Dr. Qiu after discharge in [facility]
--- NOTE | 2021-01-03 11:08 | PCNFU ---
Nutrition Follow-Up Complete: Inadequate oral intake related to decreased appetite as evidenced by BMI of 17.5 and reported weight loss of 60 pounds over the past 1-1.5 years which is undesirable. Goal: Patient to consume 50% of meals/supplements or greater. Pt current nutrition is Regular. Last recorded weight is 58.4 kg,no new weight to report. Bowel Motility:+BM noted 01/02 Labs Reviewed:Alb 2.5,Hct 31.6,Hgb 10.1 Meds Noted:Miralax, Fiber con, LR Additional Notes: Patient seen today for nutrition follow up. He was eating breakfast the time of my assessment. Diet order has been advanced to a regular diet with Nutritional treat ice cream. He did not like the ice cream today and he states the ensure drinks bind him up. He was been consuming 75-100% of meals. Encouraged PO intake at home. Spoke with VENKATESH Cabral today regarding patient. Plans for possible discharge. Monitoring: Follow up in 7 days.
[2021-01-04 18:25] LABS: PSA, Free 0.79 ng/mL; PSA, Total 11.6 ng/mL (<=4.0)
--- NOTE | 2021-01-06 12:06 | PC.NURSE ---
PSA is 0.79.
== END 2021-01-03 11:41 | disposition home or self-care (01) | DRG 204 ==
LOC: ANHED 13:43 → ANH3MEDSUR 15:25
PROVIDERS: Internal Medicine Gastroenterology; Internal Medicine Medical Oncology; Nurse Practitioner; Physician Assistant; Admitting Provider Internal Medicine; Emergency Provider Emergency Medicine; Visit Provider Physician Assistant
PROC: 0DJ08ZZ Inspection of Upper Intestinal Tract, Via Natural or Artificial Opening Endoscopic (ICD-10-PCS; CPT 43235; principal; 2021-01-02 14:30)
DX: R91.8 Other nonspecific abnormal finding of lung field (principal); E46 Unspecified protein-calorie malnutrition; Z68.1 Body mass index [BMI] 19.9 or less, adult; I50.20 Unspecified systolic (congestive) heart failure; E86.0 Dehydration; K59.03 Drug induced constipation; T40.2X5A Adverse effect of other opioids, initial encounter; I27.20 Pulmonary hypertension, unspecified; C61 Malignant neoplasm of prostate; K22.2 Esophageal obstruction; R13.10 Dysphagia, unspecified; K21.9 Gastro-esophageal reflux disease without esophagitis; R63.4 Abnormal weight loss; R93.3 Abnormal findings on diagnostic imaging of other parts of digestive tract; K57.30 Diverticulosis of large intestine without perforation or abscess without bleeding; I25.10 Atherosclerotic heart disease of native coronary artery without angina pectoris; F17.210 Nicotine dependence, cigarettes, uncomplicated; G47.33 Obstructive sleep apnea (adult) (pediatric); Z86.03 Personal history of neoplasm of uncertain behavior; Z86.73 Personal history of transient ischemic attack (TIA), and cerebral infarction without residual deficits; Z95.5 Presence of coronary angioplasty implant and graft
CPT/HCPCS: 32408; 36415; 71045; 71046; 71260; 74019; 74177; 78306; 80048; 80053; 80069; 81001; 83615; 83690; 83735; 84100; 84153; 84154; 84443; 85025; 85027; 85610; 85730; 88305; 88313; 88342; 93005; 96361; 96374; 96375; 96376; 99285; A9270; A9561; G0378; J2270; J2405; J2704; J3475; J7030; J7120; Q9967

== ENCOUNTER 2021-01-16 10:40 | Outpatient (CLI) | payer MEDICARE, MEDICAID, SELFPAY ==
--- NOTE | ~2021-01-16 | PE_ITS ---
EXAMINATION: PET skull to mid thigh DATE: 01/16/2021 12:23 INDICATION: Prostate cancer, lung mass, biopsy showed spindle cell neoplasm TECHNIQUE: Blood glucose level was 101 mg/dL. 10.4 mCi of 18-fluorodeoxyglucose (18-FDG) was administ ered i.v. Low dose computed tomography (CT) images were acquired from the base of the brain to the pr oximal thighs for attenuation correction and anatomic localization. Positron emission tomography (PET ) images were acquired in the same distribution beginning 60 minutes after injection. The dose-length product (DLP) was 239.90 mGy-cm. COMPARISON: 12/31/2020 FINDINGS: Head/neck: No abnormal FDG uptake is identified. There is encephalomalacia in the right occipital lob e with an overlying calvarial defect and corresponding absent FDG uptake, consistent with prior surge ry. Chest: There is an approximately 6.1 x 4.8 cm infrahilar mass at the posteromedial aspect of the righ t hemithorax. The mass demonstrates abnormal FDG uptake with an SUV max of 4.1. There is mass effect on the right inferior pulmonary vein. Passive atelectasis of the right lower lobe surrounds the mass. No additional intrathoracic abnormal FDG uptake is identified. There are no pathologically enlarged thoracic lymph nodes. There is a stable 5 mm nodule of the right lower lobe without FDG uptake. Moder ate emphysema is noted. There is left ventricular enlargement of heart. Coronary artery stents are no abhijit. There is no pleural effusion or pneumothorax. Abdomen/pelvis/proximal thighs: Physiologic FDG activity is present in the bowel and urinary tract. N o abnormal FDG uptake is identified. The liver, spleen, pancreas, gallbladder, and adrenal glands are normal. The kidneys are unremarkable. No pathologically enlarged abdominal or pelvic lymph nodes are identified. There is no free intraperitoneal gas or evidence of bowel obstruction. The prostate is e nlarged. There is circumferential wall thickening of the urinary bladder. Colonic diverticulosis is p resent without evidence of diverticulitis. Musculoskeletal: No abnormal FDG uptake is identified. There are changes of anterior fusion at C6-7. IMPRESSION: 1. Stable, FDG avid infrahilar mass in the posteromedial aspect of the right hemithorax with biopsy s howing spindle cell neoplasm. No additional abnormal FDG uptake identified. 2. Circumferential wall thickening of the urinary bladder which could reflect cystitis or chronic out let obstruction. Reviewed, dictated and finalized at location B. IMPRESSION: 1. Stable, FDG avid infrahilar mass in the posteromedial aspect of the right he mithorax with biopsy showing spindle cell neoplasm. No additional abnormal FDG uptake identified. 2. Circumferential wall thickening of the urinary bladder which could reflect c ystitis or chronic outlet obstruction.
[2021-01-16 10:58] LABS: Glucose Point of Care 101 (65-105)
== END 2021-01-16 10:41 | disposition home or self-care (01) ==
PROVIDERS: PCP Nurse Practitioner Family; Visit Provider Internal Medicine Hematology & Oncology
DX: C34.31 Malignant neoplasm of lower lobe, right bronchus or lung (principal); C61 Malignant neoplasm of prostate; R93.41 Abnormal radiologic findings on diagnostic imaging of renal pelvis, ureter, or bladder
CPT/HCPCS: 78815; 82948; A9552

== ENCOUNTER 2021-05-21 14:07 | Outpatient (CLI) | payer MEDICARE, MEDICAID, SELFPAY ==
--- NOTE | ~2021-05-21 | CT_ITS ---
EXAMINATION:CT diagnostic chest w con DATE: 05/21/2021 14:32 INDICATION: Solitary fibrous neoplasm. TECHNIQUE: Computed tomography (CT) of the chest was performed with 75 mL Omnipaque 350 intravenous c ontrast. Automated exposure control and iterative reconstruction technique were employed. The dose-le ngth product (DLP) was 150.21 mGy-cm. COMPARISON: Chest CT 12/31/2020 FINDINGS: There is moderate emphysema. There are changes of right lower lobectomy. There is a 6 mm no dule in right lung upper lobe that measured 5 mm on 12/31/2020. There is a 4 mm nodule in left lower l obe, stable from 12/31/2020, likely benign. No pleural effusion. The heart size is normal. There are s tents in left circumflex coronary artery. No pericardial effusion. There are changes of anterior fusi on procedure in cervical spine. There is a chronic deformity of left third rib. IMPRESSION: 1. 6 mm pulmonary nodule with mild increase in size, probably benign. Noncontrast low-dose chest CT i s recommended in 6 months. 2. Moderate emphysema. Reviewed, dictated and finalized at location B. IMPRESSION: 1. 6 mm pulmonary nodule with mild increase in size, probably benign. Noncontra st low-dose chest CT is recommended in 6 months. 2. Moderate emphysema.
[2021-05-21 14:27] LABS: Estimated Glomerular Filt Rate > 60
== END 2021-05-21 14:08 | disposition home or self-care (01) ==
LOC: ANHIMG 14:08
PROVIDERS: PCP Nurse Practitioner Family; Visit Provider Internal Medicine Hematology & Oncology
DX: D49.2 Neoplasm of unspecified behavior of bone, soft tissue, and skin (principal); R91.8 Other nonspecific abnormal finding of lung field; J43.9 Emphysema, unspecified
CPT/HCPCS: 71260; Q9967

== ENCOUNTER 2021-08-21 14:13 | Outpatient (CLI) | payer MEDICARE, MEDICAID, SELFPAY ==
--- NOTE | ~2021-08-21 | CT_ITS ---
EXAMINATION: CT chest abdomen pelvis w con DATE: 08/21/2021 14:49 INDICATION: Prostate cancer. Lower right-sided abdominal pain. Thoracic solitary fibrous neoplasm. TECHNIQUE: Computed tomography (CT) of the chest, abdomen, and pelvis was performed with 100 mL Omnip aque-350 intravenous contrast. Automated exposure control and iterative reconstruction technique were employed. The dose-length product was 285.03 mGy-cm. COMPARISON: Chest CT dated 05/21/2021, PET/CT dated 01/16/2021 CT of the chest, abdomen and pelvis date d 12/31/2020. FINDINGS: CHEST CT: Moderate emphysema. Interval right lower lobectomy with resection of an FDG avid right lower lobe mas s, biopsy-proven spindle cell neoplasm with residual suture line and pleural parenchymal scarring in the posterior medial aspect of the right middle and upper lobes. Unchanged 6 mm nodule in the right u pper lobe and 3 mm nodule in the superior segment of the left lower lobe. No Enlarging pulmonary nodules, pneumonia, pulmonary edema or pleural effusion. Secondary mild volume lo ss the right hemithorax with rightward shift of the normal sized heart. Coronary artery disease with atherosclerotic calcifications versus more likely stenting along the circumflex coronary artery. No p ericardial effusion. Normal caliber thoracic aorta with no dissection. Although not performed as a de dicated pulmonary embolism protocol there is good contrast opacification of the pulmonary arteries de monstrating no pulmonary embolism. Several infrahilar surgical clips which could be related to a prio r lymph node dissection. No pathologically enlarged thoracic lymphadenopathy. C6-C7 anterior spinal f usion with interbody bone graft and anterior plate and screw fixation. ABDOMEN/PELVIS CT: Liver, gallbladder, spleen, pancreas, bilateral adrenal glands and kidneys are normal. There is moder ate sigmoid diverticulosis without adjacent inflammatory change to suggest diverticulitis. Small babs l and appendix are normal. Bladder is nearly decompressed which likely accounts for the mild diffuse wall thickening. This could also be due to cystitis either acute or chronic or due to outlet obstruct ion from the enlarged prostate. No pathologically enlarged abdominal or pelvic lymphadenopathy. There is calcified atherosclerosis of the aorta and many of the other arteries. 3 mm anterolisthesis L5 on S1 with bilateral pars interarticularis defects. No suspicious lytic or blastic bone lesions. IMPRESSION: 1. Interval right lower lobectomy for resection of a previously biopsied spindle cell neoplasm in the right lower lobe. No evident residual/recurrent or metastatic disease in the chest, abdomen or pelvi s. 2. Moderate emphysema. 3. Prostatomegaly. Reviewed, dictated and finalized at location A. IFIED NOVELL ENGINEER IMPRESSION: 1. Interval right lower lobectomy for resection of a previously biopsied spindl e cell neoplasm in the right lower lobe. No evident residual/recurrent or metas tatic disease in the chest, abdomen or pelvis. 2. Moderate emphysema. 3. Prostatomegaly.
[2021-08-21 14:40] LABS: Estimated Glomerular Filt Rate > 60
== END 2021-08-21 14:14 | disposition home or self-care (01) ==
PROVIDERS: Visit Provider Internal Medicine Hematology & Oncology
DX: C61 Malignant neoplasm of prostate (principal); D49.2 Neoplasm of unspecified behavior of bone, soft tissue, and skin; Z90.2 Acquired absence of lung [part of]; J43.9 Emphysema, unspecified; N40.0 Benign prostatic hyperplasia without lower urinary tract symptoms
CPT/HCPCS: 71260; 74177; Q9967

== ENCOUNTER 2021-08-25 08:03 | Outpatient (CLI) | payer MEDICARE, MEDICAID, SELFPAY ==
--- NOTE | ~2021-08-25 | NM_ITS ---
EXAMINATION: NM bone scan whole body DATE: 08/25/2021 10:52 INDICATION: Prostate cancer. TECHNIQUE: 26.8 mCi Tc-99m HDP was administered intravenously. Delayed whole-body scintigrams were o btained. COMPARISON: CT chest, abdomen, and pelvis 08/21/2021, bone scan 01/02/2021, PET CT 01/16/2021 FINDINGS: There is increased activity at L5-S1 correlating with spondylosis by CT. There is increased activity in the shoulders correlating with osteoarthritis by CT. IMPRESSION: 1. No evidence of metastatic disease. Reviewed, dictated and finalized at location B. ENT DRIVING INSTRUCTOR
== END 2021-08-25 08:04 | disposition home or self-care (01) ==
LOC: ANHIMG 08:05
PROVIDERS: Visit Provider Internal Medicine Hematology & Oncology
DX: C61 Malignant neoplasm of prostate (principal)
CPT/HCPCS: 36415; 78306; 80048; 80053; 85025; 96402; A9561; J9217

== ENCOUNTER 2021-12-30 20:54 | Inpatient (IN) | payer MEDICARE, MEDICAID, SELFPAY ==
--- NOTE | ~2021-12-30 | XR_ITS ---
XR chest 1V portable DATE: 12/30/2021 21:18 INDICATION: Chest pain TECHNIQUE: Portable upright AP view on 12/30/2021 at 2113 hours COMPARISON: 08/21/2021 CT chest abdomen pelvis 01/01/2021 AP chest FINDINGS: Status post lower anterior cervical spine surgical fusion. Status post partial right lung resection since 01/01/2021. There is mild infiltrate or atelectasis in the medial lower lungs. No pulmonary infiltrate or consoli dation is noted otherwise. Normal heart size. Likely chronic mild blunting of the right costophrenic angle. Diffuse osteopenia. IMPRESSION: Mild infiltrate or atelectasis in the medial lower lungs Status post right partial lung resection Reviewed, dictated and finalized at location A.
[2021-12-30 20:53] VITALS: BP 130/80; PULSE 86; RESP 20; O2SAT 100
--- NOTE | 2021-12-30 20:57 | ECG_ITS ---
Measurements Intervals Arnett Rate: 78 P: 100 DE: 190 QRS: 109 QRSD: 115 T: 89 QT: 392 QTc: 447 Interpretive Statements SINUS RHYTHM ARM LEADS REVERSED [INVERTED P AND QRS IN I] INFERIOR ST ELEVATIONS WITH RECIPROCAL ST AND T-WAVE ABNORMALITY ANTEROSEPTAL LEADS ACUTE MYOCARDIAL INFARCTION ABNORMAL ECG COMPARED TO ECG 12/31/2020 11:10:[address] ELEVATION IS NEW Electronically Signed On 12-31-2021 8:46:10 CDT by Donnie Brown M.D.
--- NOTE | 2021-12-30 21:01 | ED.CHESTPAIN ---
HPI - Chest Pain General Chief Complaint: Chest Pain Stated Complaint: STEMI Time Seen by Provider: 12/30/21 20:56 Source: patient and EMS Mode of arrival: EMS Limitations: no limitations History of Present Illness HPI narrative: The patient is a 66-year-old male with a history of prostate cancer, lung mass, hypertension, coronary artery disease with previous NSTEMI in 2014 with stent to left circumflex/complex PCI, presenting to the emergency department for evaluation of chest pain. Chest pain began approximately 1 hour prior to arrival for which patient called EMS crew. EMS crew was concern for possible STEMI however their EKG would not transmit to us, however at the time of arrival I did review their rhythm strips and was concern for STEMI based on patient history, appearance of EKG. Patient reports mild shortness of breath, diaphoresis. Denies nausea or vomiting. Patient is unsure what pathology tech he saw while he was in the hospital for his NSTEMI. Patient reportedly was given aspirin, nitroglycerin by EMS crew. Related Data Home Medications Medication Instructions Recorded Confirmed hydrocodone-acetaminophen 1 tablet PO QID PRN 03/07/20 11/20/21 pregabalin 150 mg PO QID 12/31/20 11/20/21 aspirin 81 mg PO DAILY 08/25/21 11/20/21 Allergies Allergy/AdvReac Type Severity Reaction Status Date / Time morphine Allergy Mild Nausea Verified 11/20/21 11:31 oxycodone Allergy Mild Nausea Verified 11/20/21 11:31 phenytoin Allergy Mild HIVES Verified 11/20/21 11:31 azithromycin Allergy Unknown Nausea and Verified 11/20/21 11:31 Vomiting topiramate Allergy Unknown Verified 11/20/21 11:31 pantoprazole Allergy Chest Pain Verified 11/20/21 11:31 red dye Allergy Rash Verified 11/20/21 11:31 Seizure medication Allergy Other Uncoded 11/20/21 11:31 Review of Systems Review of Systems: CONSTITUTIONAL: Denies fever, reports diaphoresis CARDIOVASCULAR: Reports chest pain RESPIRATORY: Denies cough or dyspnea. GASTROINTESTINAL: Denies abdominal pain SKIN: Denies rash MUSCULOSKELETAL: Denies back pain NEUROLOGIC: Denies headache ROS unobtainable: Yes other (Limited secondary to acuity of condition) PMFSH Past Medical History Medical History Brain tumor 2004 meningioma CAD (coronary artery disease) Chronic narcotic use CVA (cerebral vascular accident) Dysphagia GERD (gastroesophageal reflux disease) Mediastinal mass LIBRADO (obstructive sleep apnea) Prostate cancer The patient stated that he is being seen outpatient for this Pulmonary HTN Smoker Systolic CHF 10/15/2018 TTE EF of 40% at [facility] Weight loss Surgical History Surgical History H/O brain surgery History of coronary artery stent placement x 5 2011 History of ear surgery Hx of fusion of cervical spine Family History Family History Father Colon cancer Mother Colon cancer Social History Social History Social History: The patient has 3 children. He is . He now lives home alone. His daughter was living with them until she moved out to live with her boyfriend. The patient is disabled. He denies any alcohol marijuana or illicit drugs. Patient continues to smoke a half a pack a cigarettes a day for least 50 years. 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 Smoking packs per day: 2 Smoking cigarettes per day: 40.0 Years smoked: 40 Smoking pack-years: 80.00 Smoking status: Current every day smoker Tobacco type: cigarettes Additional smoking assessment comments: down to less than a pack a day now Alcohol intake: never Substance use: never Gender identity (if verbalized by the patient): Female Sexual Orientation (if Verbalized by the Patient): Straight or Heterosexual Spiritual care
[2021-12-30] MEDS: ONDANSETRON INJ 4 MG/2 ML VIAL IV PUSH (21:09)
[2021-12-30] MEDS: MORPHINE SULFATE (*CRX) 4 MG/ML INJ IV PUSH (21:09)
[2021-12-30] MEDS: HEPARIN SODIUM 5,000 UNITS/ML VIAL 3500 UNITS IV PUSH (21:09)
--- NOTE | 2021-12-30 21:14 | PC.NURSE ---
Report given to Pathology Assistant at this time
[2021-12-30 21:25] LABS: Basophils Absolute Auto 0.1 K/mm3 (0.0-0.1); Basophils Percent Auto 0.8 % (0.2-1.2); Eosinophils Absolute Auto 0.4 K/mm3 (0-0.3); Eosinophils Percent Auto 2.7 % (0-4.4); Hematocrit 34.8 % (42.0-52.0); Hemoglobin 10.8 g/dL (14.0-18.0); Immature Granulocyte Absolute 0.13 K/mm3 (0.00-0.031); Immature Granulocyte Percent A 0.9 % (0-0.5); Lymphocytes Absolute Auto 1.01 K/mm3 (0.9-3.2); Mean Corpuscular Hemoglobin 30.3 pg (26-34); Mean Corpuscular Volume 97.8 fl (80-100); Mean Platelet Volume 8.9 fl (7.4-10.4); Monocytes Absolute Auto 0.9 K/mm3 (0.1-0.6); Monocytes Percent Auto 6.1 % (2.6-8.5); Neutrophils Percent Auto 82.5 % (45.5-73.1); Platelet Count Result 512 k/mm3 (150-375); Red Blood Count 3.56 M/mm3 (4.6-6.20); Red Cell Distribution Width 14.5 % (11.5-14.5); White Blood Count 14.5 K/mm3 (4.5-10.0)
[2021-12-30 21:34] LABS: Prothrombin Time 12.7 Seconds (11.1-14.7)
[2021-12-30 21:35] LABS: Partial Thromboplastin Time 32.8 SECONDS (22.3-36.8)
[2021-12-30 21:37] LABS: Anion Gap 7 mmol/L (8-16); Blood Urea Nitrogen 23 mg/dL (9-20); Calcium 8.3 mg/dL (8.4-10.2); Carbon Dioxide 28 mmol/L (22-30); Chloride 104 mmol/L (98-107); Estimated CRCL calculation 46 ml/min; Estimated Glomerular Filt Rate > 60; Glucose 192 mg/dL (65-110); Potassium 4.1 mmol/L (3.4-5.0); Sodium 139 mmol/L (137-145)
[2021-12-30 21:44] VITALS: BP 133/87; PULSE 100; RESP 15; O2SAT 100
[2021-12-30 21:49] LABS: Troponin I < 0.012 ng/mL (0.000-0.034)
--- NOTE | 2021-12-30 23:10 | WPDHPUPDATE1 ---
History and Physical Update Update Date/Time: 12/30/21 23:10 History and Physical has been reviewed, including an updated exam of the patient. There are NO changes in the patient's condition. Risks, benefits, and alternatives have been discussed and questions answered. Patient agrees to proceed with procedure.
--- NOTE | 2021-12-30 23:10 | WPDMODSED ---
Moderate Sedation Note-Pt Data Patient Data Allergies Allergy/AdvReac Type Severity Reaction Status Date / Time morphine Allergy Mild Nausea Verified 11/20/21 11:31 oxycodone Allergy Mild Nausea Verified 11/20/21 11:31 phenytoin Allergy Mild HIVES Verified 11/20/21 11:31 azithromycin Allergy Unknown Nausea and Verified 11/20/21 11:31 Vomiting topiramate Allergy Unknown Verified 11/20/21 11:31 pantoprazole Allergy Chest Pain Verified 11/20/21 11:31 red dye Allergy Rash Verified 11/20/21 11:31 Seizure medication Allergy Other Uncoded 11/20/21 11:31 Home Medications Medication Instructions Recorded Confirmed Type hydrocodone-acetaminophen 1 tablet PO QID PRN 03/07/20 11/20/21 History pregabalin 150 mg PO QID 12/31/20 11/20/21 History calcium carbonate 200 mg PO Q6H PRN #0 tablet 01/03/21 11/20/21 Rx famotidine 20 mg PO Q12HR #0 tablet 01/03/21 11/20/21 Rx polyethylene glycol 3350 [Miralax] 17 g PO QAM #0 ea 01/03/21 11/20/21 Rx ondansetron HCl [Zofran] 4 mg PO Q8H PRN #30 tablet 01/04/21 11/20/21 Rx aspirin 81 mg PO DAILY 08/25/21 11/20/21 History zolpidem 5 mg PO HS PRN #30 tablet 09/25/21 Rx venlafaxine [Effexor XR] 37.5 mg PO DAILY #30 cap 10/16/21 Rx zolpidem 10 mg PO HS PRN #30 tablet 10/16/21 Rx tamsulosin 0.4 mg PO DAILY #30 cap 10/23/21 Rx dexamethasone 4 mg PO QAM #30 tablet 11/13/21 Rx Sedation/Anesthesia: No previous sedation/anesthesia problems (including family history). [facility] Past Medical History Medical History Brain tumor 2003 meningioma CAD (coronary artery disease) Chronic narcotic use CVA (cerebral vascular accident) Dysphagia GERD (gastroesophageal reflux disease) Mediastinal mass LIBRADO (obstructive sleep apnea) Prostate cancer The patient stated that he is being seen outpatient for this Pulmonary HTN Smoker Systolic CHF 10/15/2018 TTE EF of 40% at [facility] Weight loss Surgical History Surgical History H/O brain surgery History of coronary artery stent placement x 5 2011 History of ear surgery Hx of fusion of cervical spine Family History Family History Father Colon cancer Mother Colon cancer Social History Social History Social History: The patient has 3 children. He is . He now lives home alone. His daughter was living with them until she moved out to live with her boyfriend. The patient is disabled. He denies any alcohol marijuana or illicit drugs. Patient continues to smoke a half a pack a cigarettes a day for least 50 years. The patient does not have a power collections attorney and would like to be a full code. Smoking packs per day: 2 Smoking cigarettes per day: 40.0 Years smoked: 40 Smoking pack-years: 80.00 Smoking status: Current every day smoker Tobacco type: cigarettes Additional smoking assessment comments: down to less than a pack a day now Alcohol intake: never Substance use: never Gender identity (if verbalized by the patient): Female Sexual Orientation (if Verbalized by the Patient): Straight or Heterosexual Spiritual care concerns: No Mod Sed Physical Exam Physical Exam Pre Procedural Exam: Normal: Appearance, Eyes, Ears, Nose, Neck, Throat, Airway, Lungs, Heart Size, Heart Rate, Heart Rhythm, Neuro Exam, Abdomen, Liver, Kidneys, Spleen, Breasts, Genitalia, Extremities and Skin Hours since solid foods: 8 Hours since liquid intake: 8 Mallampati Classification: class 1 Internal Medicine - PN: Obj Da Vital Signs Vital Signs: Vital Signs - 24 hr 12/30/21 20:53 12/30/21 21:44 Pulse Rate 86 100 Respiratory Rate 20 15 Blood Pressure 130/80 133/87 Pulse Oximetry 100 100 Meds/Results Radiology Results: ITS Impressions Chest X-Ray 12/30/21 21:22 IMPRESSION: Mild infiltrate or atelectasis in the medial lower
--- NOTE | 2021-12-30 23:11 | WPDCARDPROC ---
Cardiac Cath Procedure Note Date of procedure:: 12/30/21 Performing physician:: Monalisa Bagley MD Date of service 12/30/2021 Indication:: inferior- posterior STEMI Brief clinical history:: this 66-year-old patient with past medical history of prostate cancer, meningioma 2003, resection of lung cancer, resection of mediastinal mass 6 months ago, previous multiple stents in the left circumflex artery who presents to the hospital with chest pain that started today at 4:00 p.m.. Central in location associated with nausea, shortness of breath. On arrival to the emergency room was found to have ST elevations involving the inferior leads with ST depressions V2 to V4. Patient states that he continues to smoke cigarettes. Has not taking any aspirin lately. He is supposed to be on Brilinta but has not taking it because makes him feeling weak. Also not taking statins because it makes him feel weak. 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 gutierrez. Procedure Procedure performed:: 1-Moderate sedation that started at and ended at using mg of Versed and mg fentanyl. The registered nurse was 2-Selective left and right coronary angiogram. 3-Left heart catheterization with measurement of LVEDP and measurement of gradient across aortic valve. 4- LV angiogram. 5- Balloon angioplasty of totally occluded proximal left circumflex artery stent and totally occluded distal left circumflex artery stent. 6- intravascular ultrasound of the left circumflex artery. 7-Right common femoral arterial angiogram. 8-Deployment of 6 Moldovan Angio-Seal. Sedation/Medication given:: Moderate sedation. Access site:: Right common femoral artery. Estimated blood loss:: 10cc Procedure note:: After informed consent patient was brought in to slab polisher with the was draped and prepped in usual manner. Moderate sedation was given and the right groin was infiltrated using 1% lidocaine. Six Moldovan sheath was obtained using micropuncture needle and the modified Seldinger technique. Selective left coronary angiogram was done using JL4 catheter with the tip of the catheter placed in the left main coronary artery. Selective right coronary angiogram was done using JR4 catheter with the tip of the catheter placed to the right coronary artery. after that guide catheter CLS 3.5 subsequently Engage the left main and then after the Yard Driver 150 wire was advanced to distal left circumflex artery balloon angioplasty with blood to proximal stent using 3x 15 balloon under normal pressure for 25 seconds. Two inflations and then the same balloon was taken to the distal stent and inflated under nominal pressure for 25 seconds. We noticed that there was migration of clots to distal OM and distal left circumflex artery. At this time we administered 2 boluses of IV Integrilin. We took another wire luge wire and advanced to distal OM and then balloon angioplasty of distal OM using 2 x 12 balloon and normal pressure for 25 seconds. Intravascular ultrasound was done after that with measurement of diameter of the proximal and distal stents. Subsequently we took 3.5 x 15 noncompliant balloon and inflated it in the proximal stent each under nominal pressure for 25 seconds and total inflations of 3. then after that we took 2.5 x 15 noncompliant balloon and inflated it in the distal left circumflex artery stent 2 inflations. Each under normal pressure. After that 5 Moldovan pigtail catheter was advanced across the aortic valve into the left ventricle with measurement of LVEDP and measurement of gradient across aortic valve. Right common femoral arterial angiogram was done. Findings:: 1- left coronary artery is a large artery that divides into large LAD, large circumflex artery. Left main Has ostial 20% to 30%. 2- left anterior descending artery is a large artery . Minimal irregularities. Medium size diagonal branch looks unremarkable. 3- leftcircumflex artery is a large artery And totally occluded within the proximal
--- NOTE | 2021-12-30 23:24 | PM.IMHP ---
H&P: HPI History of Present Illness Date/Time: date of vytndgz93/29/22 23:24 Chief Complaint: chest pain Narrative: this 66-year-old patient with past medical history of prostate cancer, meningioma 2003, resection of lung cancer, resection of mediastinal mass 6 months ago, previous multiple stents in the left circumflex artery who presents to the hospital with chest pain that started today at 4:00 p.m.. Central in location associated with nausea, shortness of breath. On arrival to the emergency room was found to have ST elevations involving the inferior leads with ST depressions V2 to V4. Patient states that he continues to smoke cigarettes. Has not taking any aspirin lately. He is supposed to be on Brilinta but has not taking it because makes him feeling weak. Also not taking statins because it makes him feel weak. 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 gutierrez. Review of Systems Review of Systems: All systems reviewed & are unremarkable except as noted in HPI and below Constitutional: Constitutional: Denies chills, Reports fatigue, Denies fever(s), Denies headache(s) and Denies snoring Eyes: Eyes: Denies eye discharge and Denies loss of vision ENT: Denies dizziness, Denies headache(s), Denies nasal discharge and Denies sore throat Cardiovascular: Cardiovascular: Reports as per HPI, Reports chest pain, Denies syncope, Denies rapid heart rate, Denies leg edema, Reports dyspnea, Denies dyspnea on exertion, Denies orthopnea and Denies paroxysmal nocturnal dyspnea Respiratory: Respiratory: Denies chest congestion, Denies cough, Reports dyspnea, Reports dyspnea on exertion, Denies snoring and Denies wheezing Gastrointestinal: Gastrointestinal: Denies abdominal pain, Denies diarrhea, Reports nausea and Denies vomiting Genitourinary: Genitourinary: Denies hematuria, Denies dysuria, Denies flank pain and Denies urinary frequency Musculoskeletal: Musculoskeletal: Denies myalgias, Denies arthralgias and Denies joint swelling Neurologic: Denies Abnormal speech present, Denies dizziness, Denies syncope, Denies headache(s), Denies focal weakness and Denies loss of vision Psychiatric: Psychiatric: Denies anxiety and Denies depression Endocrine: Endocrine: Denies cold intolerance, Denies fatigue and Denies heat intolerance Hematologic/Lymphatic: Hematologic/Lymphatic: Denies easy bleeding and Denies easy bruising Allergic/Immunologic: Allergic/Immunologic: Denies urticaria and Denies wheezing [facility] Past Medical History Medical History Brain tumor 2004 meningioma CAD (coronary artery disease) Chronic narcotic use CVA (cerebral vascular accident) Dysphagia GERD (gastroesophageal reflux disease) Mediastinal mass LIBRADO (obstructive sleep apnea) Prostate cancer The patient stated that he is being seen outpatient for this Pulmonary HTN Smoker Systolic CHF 10/15/2018 TTE EF of 40% at [facility] Weight loss Surgical History Surgical History H/O brain surgery History of coronary artery stent placement x 5 2011 History of ear surgery Hx of fusion of cervical spine Family History Family History Father Colon cancer Mother Colon cancer Social History Social History Social History: The patient has 3 children. He is . He now lives home alone. His daughter was living with them until she moved out to live with her boyfriend. The patient is disabled. He denies any alcohol marijuana or illicit drugs. Patient continues to smoke a half a pack a cigarettes a day for least 50 years. The patient does not have a power attorney at law and would like to be a full code. Smoking packs per day: 2 Smoking cigarettes per day: 40.0 Years smoked: 40 Smoking pack-years: 80.00 Smoking status: Current every day smoker To
--- NOTE | 2021-12-30 23:28 | ECG_ITS ---
Measurements Intervals Jakin Rate: 85 P: 80 AK: 201 QRS: 74 QRSD: 98 T: 80 QT: 384 QTc: 458 Interpretive Statements SINUS RHYTHM BASELINE ARTIFACT MODERATE ST DEPRESSION [0.05+ mV ST DEPRESSION] ABNORMAL ECG COMPARED TO ECG 12/30/2021 20:57:54 ST DEPRESSIONS ARE IMPROVED AND INFERIOR ST ELEVATIONS LESS PROMINENT Electronically Signed On 12-31-2021 8:48:48 CDT by Donnie Brown M.D.
[2021-12-30 23:30] VITALS: BP 120/82; PULSE 86; RESP 15; TEMP 36.4; O2SAT 95; BMI 18.9
[2021-12-30 23:45] VITALS: BP 119/80; PULSE 86; RESP 12; O2SAT 97
[2021-12-31] VITALS (18 sets, daily range): BP systolic 87–133; BP diastolic 53–92; PULSE 76–107; RESP 12–24; TEMP 36.3–36.7; O2SAT 95–100; BMI 18.9
--- NOTE | 2021-12-31 00:10 | ADMGEN ---
This patient, Iftikhar Jimenez, was admitted to Intensive Care Unit-4 on 12/30/21 at 2330. Patient/family oriented to hospital policies and general routines including ID bracelet, bed and alarms, visiting hours, pain management, procedures, bathroom and other care routines, personal items, smoking policy, room service/diet, and visiting hours. Information on how to activate the Rapid Response Team has been discussed. Patient/Family are encouraged to report perceived risks to care and to ask questions if they do not understand what they are told or what they should do.
--- NOTE | 2021-12-31 00:22 | ECHO_ITS ---
Patient Info Name: Iftikhar Jimenez Age: 66 years : 1955 Gender: Male Ht: 72 in Wt: 139 lbs BSA: 1.78 m2 HR: 107 bpm BP: 117 / 84 mmHg Heart Rhythm: Sinus Rhythm Technical Quality: Fair Exam Date: 12/31/2021 8:42 AM Exam Location: [facility] Pulmonary Patient Status: Inpatient Admit Date: 12/31/2021 Staff Ordering Physician: Monalisa Bagley MD Director Of Physical Education: Trinidad Rdz RDCS Attending Provider: Monalisa Bagley MD Referring Physician: Kevyn LOCKE; Exam Type: CA echo doppler color flow Study Info Indications - stemi Complete two-dimensional, color flow and Doppler transthoracic echocardiogram is performed. Summary 1. Complete two-dimensional, color flow and Doppler transthoracic echocardiogram is performed. 2. Left ventricular chamber dimension is normal. 3. Left ventricular systolic function is mildly reduced, estimated at 45-50%. The mid and basal inferolateral gonzáles are akinetic. There is moderate hypokinesis of the mid and basal anterolateral gonzáles with mild hypokinesis of the basal inferior wall. 4. Right ventricular systolic function is reduced. Measured TAPSE is inaccurate. 5. There is no aortic valve stenosis. 6. There is mild mitral valve regurgitation. 7. There is trace tricuspid valve regurgitation. 8. No pulmonary hypertension, estimated pulmonary arterial systolic pressure is 29 mmHg. Left Ventricle Left ventricular chamber dimension is normal. Left ventricular systolic function is mildly reduced, estimated at 45-50%. The mid and basal inferolateral gonzáles are akinetic. There is moderate hypokinesis of the mid and basal anterolateral gonzáles with mild hypokinesis of the basal inferior wall. There is no increased left ventricular wall thickness. The left ventricular diastolic function is abnormal. Right Ventricle Right ventricular chamber dimension is normal. Right ventricular systolic function is reduced. Measured TAPSE is inaccurate. Left Atria Left atrial chamber dimension is normal. Right Atria Right atrial chamber dimension is normal. Aortic Valve The aortic valve is not well visualized. There is no aortic valve stenosis. There is no aortic valve regurgitation. Pulmonic Valve The pulmonic valve is not well visualized. There is trace pulmonic regurgitation. Mitral Valve The mitral valve has thickened leaflets. There is mild to moderate mitral valve stenosis. There is mild mitral valve regurgitation. The mitral valve annulus is mildly calcified. Tricuspid Valve The tricuspid valve leaflets are normal. There is trace tricuspid valve regurgitation. No pulmonary hypertension, estimated pulmonary arterial systolic pressure is 29 mmHg. Pericardium/Pleural The pericardium appears normal. There is no pericardial effusion. Inferior Vena Cava Normal inferior vena cava with >50% collapse upon inspiration consistent with normal right atrial pressure, 5 mmHg. Aorta The aortic root size at the sinus of Valsalva is normal. Left Ventricular Outflow Tract Name Value Normal LVOT 2D LVOT Diameter 2.0 cm LVOT Doppler LVOT Peak Gradient
[2021-12-31] MEDS: NICOTINE (*PBKC) 14 MG PATCH 1 PATCH TRANSDERM (00:29)
[2021-12-31] MEDS: HYDROcodone/acetaminophen (*CRX) 5-325 MG TABLET 1 TAB PO ×3 (00:39→09:39)
[2021-12-31] MEDS: SODIUM CHLORIDE 0.9% IV 1,000 ML 125 ML IV CONT (00:41)
[2021-12-31 05:24] LABS: Basophils Absolute Auto 0.1 K/mm3 (0.0-0.1); Basophils Percent Auto 0.5 % (0.2-1.2); Eosinophils Absolute Auto 0.3 K/mm3 (0-0.3); Eosinophils Percent Auto 2.4 % (0-4.4); Hemoglobin 9.6 g/dL (14.0-18.0); Immature Granulocyte Absolute 0.07 K/mm3 (0.00-0.031); Immature Granulocyte Percent A 0.6 % (0-0.5); Lymphocytes Absolute Auto 0.65 K/mm3 (0.9-3.2); Lymphocytes Percent Auto 5.4 % (18.3-44.2); Mean Corpuscular Hemoglobin 30.8 pg (26-34); Mean Corpuscular Volume 99.4 fl (80-100); Mean Platelet Volume 8.9 fl (7.4-10.4); Monocytes Absolute Auto 0.5 K/mm3 (0.1-0.6); Monocytes Percent Auto 4.5 % (2.6-8.5); Neutrophils Absolute Auto 10.5 K/mm3 (1.3-6.7); Neutrophils Percent Auto 86.6 % (45.5-73.1); Platelet Count Result 418 k/mm3 (150-375); Red Blood Count 3.12 M/mm3 (4.6-6.20); Red Cell Distribution Width 14.5 % (11.5-14.5); White Blood Count 12.1 K/mm3 (4.5-10.0)
[2021-12-31 05:40] LABS: Anion Gap 4 mmol/L (8-16); Blood Urea Nitrogen 26 mg/dL (9-20); Calcium 7.7 mg/dL (8.4-10.2); Carbon Dioxide 27 mmol/L (22-30); Chloride 109 mmol/L (98-107); Estimated CRCL calculation 59 ml/min; Estimated Glomerular Filt Rate > 60; Glucose 98 mg/dL (65-110); Potassium 4.1 mmol/L (3.4-5.0); Sodium 140 mmol/L (137-145)
[2021-12-31] MEDS: PREGABALIN (*CRX) 75 MG CAPSULE 150 MG PO ×3 (08:57→20:55)
[2021-12-31] MEDS: ASPIRIN 81 MG ENTERIC TABLET PO (08:57)
[2021-12-31] MEDS: TAMSULOSIN HCL 0.4 MG CAPSULE PO (08:57)
--- NOTE | 2021-12-31 09:11 | PM.PNCARD ---
Progress Note: A&P Additional Plan 66-year-old patient with coronary disease previous revascularization of his circumflex in the remote past presenting last night with acute posterior infarction due to abrupt occlusion of the proximal circumflex. Intervention involving repeat angioplasty of these segments performed with samaritan of ANH 3 flow in the vessel. Patient unfortunately is not compliant with his medication/follow-up and has continued to smoke. Unfortunately he also has a diagnosis of prostate cancer and some sort of chest malignancy with mediastinal mass that was treated last year. The pathological diagnosis is unknown to me at the time of this dictation. Obviously long-term prognosis is limited with all of this comorbidity. Today he will be transition from Brilinta to Plavix as per Dr. Bagley's recommendation last evening. Will start modest dose of metoprolol and rosuvastatin as well. Titus Smith MD [facility] Subjective Date/time seen: 12/31/21 09:11 Interval history: Follow-up visit in this 66-year-old man with: Acute ST-elevation posterior infarction presenting yesterday with total thrombotic occlusion of the proximal circumflex which had previously been stented in 2 locations. Emergency PCI performed with repeat balloon dilatation of both stented areas samaritan of ANH 3 flow in the vessel. Significant thrombotic burden in the vessel described in the laboratory apparatus glass blower report. Apparently no significant LAD or right coronary disease. Patient feeling relatively well this morning. Unfortunately he is not compliant with medication or smoking cessation. Exam Const: General: no acute distress Other: Thin chronically ill-appearing man no obvious distress HENMT: Mouth: Yes moist mucous membranes Eyes: Sclera: sclerae normal Neck: Neck: supple and no JVD Other: Carotid pulses are intact bilaterally Resp: Effort & Inspection: normal respiratory effort Other: Breath sounds diminished in both lung flores Cardio: Rate: regular rate Rhythm: regular rhythm Other: No murmur no gallop GI: GI Palp: Yes Soft to palpation Auscultation: normal bowel sounds Skin: General skin exam: normal color Neuro: Cognition (Neuro): normal cognition Extrem: General: normal to inspection Objective Data Vital Signs Vital Signs: Vital Signs - 24 hr 12/30/21 20:53 12/30/21 21:44 12/30/21 23:30 Temperature 36.4 C Pulse Rate 86 100 86 Pulse Rate [Right Pedal (Dorsalis Pedis) Doppler] 86 Respiratory Rate 20 15 15 Blood Pressure 130/80 133/87 120/82 Pulse Oximetry 100 100 95 12/30/21 23:45 12/31/21 00:00 12/31/21 00:15 Temperature Pulse Rate 86 91 89 Pulse Rate [Right Pedal (Dorsalis Pedis) Doppler] 86 89 Respiratory Rate 12 14 Blood Pressure 119/80 119/82 Pulse Oximetry 97 98 12/31/21 00:45 12/31/21 01:22 12/31/21 01:45 Temperature Pulse Rate 84 76 79 Pulse Rate [Right Pedal (Dorsalis Pedis) Doppler] 84 79 Respiratory Rate 18 18 Blood Pressure 116/81 116/79 Pulse Oximetry 99 99 12/31/21 02:00 12/31/21 02:45 12/31/21 03:45 Temperature Pulse Rate 80 83 82 Pulse Rate [Right Pedal (Dorsalis Pedis) Doppler] 83 Respiratory Rate 15 16 19 Blood Pressure 115/82 117/92 H 125/83 Pulse Oximetry 99 97 97 12/31/21 04:00 12/31/21 04:45 12/31/21 05:40 Temperature 36.4 C Pulse Rate 84 93 107 H Pulse Rate [Right Pedal (Dorsalis Pedis) Doppler] Respiratory Rate 19 20 12 Blood Pressure 120/84 117/78 117/84 Pulse Oximetry 98 96 100 12/31/21 06:00 Temperature Pulse Rate 92 Pulse Rate [Right Pedal (Dorsalis Pedis) Doppler] Respiratory Rate 19 Blood Pressure 127/76 Pulse Oximetry 99 Intake/Output Intake/Output: Intake & Output 12/28/21 12/29/21 12/30/21 12/31/21 23:59 23:59 23:59 23:59 Intake Total 240 Output Total 250 Balance -10 Meds/Results Medications: Active Medications Generic Name Dose Route Start Last Admin Trade Name Freq PRN Reason Stop Dose Ad
[2021-12-31] MEDS: VENLAFAXINE HCL XR 37.5 MG CAP PO (09:40)
[2021-12-31] MEDS: CLOPIDOGREL BISULFATE 75 MG TABLET PO (09:40)
[2021-12-31] MEDS: METOPROLOL SUCCINATE EXT REL 25 MG TABCR PO (09:50)
--- NOTE | 2021-12-31 10:40 | WPDCNINT ---
Assessment and Plan Assessment and plan (1) ST elevation (STEMI) myocardial infarction: Code(s): I21.3 - ST elevation (STEMI) myocardial infarction of unspecified site Status: Acute Assessment and Plan: Status post cardiac catheterization showed Totally occluded proximal and distal left circumflex artery stents status post balloon angioplasty. Patient now asymptomatic and chest pain-free Continue aspirin and Plavix Patient started on beta-claudia and rosuvastatin Discussed with patient and emphasized compliance with antiplatelet therapy and other cardiac medications (2) Ischemic cardiomyopathy: Code(s): I25.5 - Ischemic cardiomyopathy Status: Acute Assessment and Plan: Cardiac echo ordered (3) Tobacco abuse: Code(s): Z72.0 - Tobacco use Status: Acute Assessment and Plan: Patient was counseled to quit smoking (4) Chronic pain: Code(s): G89.29 - Other chronic pain Status: Acute Assessment and Plan: Patient has chronic pain and I am not sure of his diagnosis but I will continue his Effexor, pregabalin and p.r.n. 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 Patient states that he was having some heartburn yesterday evening then he ate pizza. He started having chest pain which was in the center of chest, 10/10 severe, pressure-like quality, radiated to his left arm and was associated with sweating. No nausea vomiting. He felt short of breath and thought that he was having another heart attack hence presented to ER. In the ED patient was diagnosed with ST segment elevation IN and taken to laboratory chemist. Patient underwent PCI and stent placement. Post procedure patient was admitted to ICU for further evaluation management. At this time patient states that he feels much better and denies any chest pain or shortness of breath. He states that his symptoms have resolved. Review system was positive for feeling weak and tired all the time. He states that he does not take his medications because they make him feel weak. He complains of chronic diffuse body pain for which he takes hydrocodone and Lyrica. He admits that he does not take any other medications regularly and takes aspirin once in a while. He continues to smoke half pack per day. He denies any alcohol use or drug use at this time. He is not vaccinated against COVID. All other systems were reviewed and were negative Review of Systems Review of Systems: All systems reviewed & are unremarkable except as noted in HPI and below (HPI) [facility] Past Medical History Medical History Brain tumor 2004 meningioma CAD (coronary artery disease) Chronic narcotic use CVA (cerebral vascular accident) Dysphagia GERD (gastroesophageal reflux disease) Mediastinal mass LIBRADO (obstructive sleep apnea) Prostate cancer The patient stated that he is being seen outpatient for this Pulmonary HTN Smoker Systolic CHF 10/15/2018 TTE EF of 40% at [facility] Weight loss Surgical History Surgical History H/O brain surgery History of coronary artery stent placement x 5 2010 History of ear surgery Hx of fusion of cervical spine Family History Family History Father Colon cancer Mother Colon cancer Social History Social History Social History: The patient has 3 children. He
[2021-12-31] MEDS: HYDROcodone/acetaminophen (*CRX) 10-325 MG TABLET 1 TAB PO ×3 (12:08→22:10)
[2022-01-01] VITALS: BP 100/68; PULSE 73; RESP 19; TEMP 36.1; O2SAT 99
[2022-01-01] MEDS: HYDROcodone/acetaminophen (*CRX) 10-325 MG TABLET 1 TAB PO ×3 (02:18→10:45)
[2022-01-01] MEDS: PREGABALIN (*CRX) 75 MG CAPSULE 150 MG PO ×2 (03:36→09:53)
[2022-01-01 04:00] VITALS: BP 110/61; PULSE 77; RESP 18; TEMP 36; O2SAT 94
[2022-01-01 08:00] VITALS: BP 101/65; BP 110/61; PULSE 72; PULSE 75; PULSE 77; RESP 15; RESP 18; TEMP 36; TEMP 36.7; O2SAT 94; O2SAT 95
[2022-01-01] MEDS: NICOTINE (*PBKC) 14 MG PATCH 1 PATCH TRANSDERM (09:50)
[2022-01-01] MEDS: VENLAFAXINE HCL XR 37.5 MG CAP PO (09:51)
[2022-01-01] MEDS: ASPIRIN 81 MG ENTERIC TABLET PO (09:51)
[2022-01-01] MEDS: CLOPIDOGREL BISULFATE 75 MG TABLET PO (09:51)
[2022-01-01 09:52] VITALS: PULSE 78
[2022-01-01] MEDS: METOPROLOL SUCCINATE EXT REL 25 MG TABCR PO (09:52)
[2022-01-01] MEDS: ENOXAPARIN 40 MG/0.4 ML SYRINGE SUB-Q (09:52)
[2022-01-01] MEDS: TAMSULOSIN HCL 0.4 MG CAPSULE PO (09:52)
[2022-01-01] MEDS: ROSUVASTATIN 10 MG TABLET PO (09:52)
--- NOTE | 2022-01-01 09:57 | PM.DS ---
DS: Admitting Diagnosis Discharge Date 01/01/2022 Admitting Diagnosis Chest pain DS: Discharge Diagnosis Discharge Diagnosis (1) ST elevation (STEMI) myocardial infarction: Code(s): I21.3 - ST elevation (STEMI) myocardial infarction of unspecified site Status: Acute Assessment and Plan: Presented to the emergency department with complaints of chest pain. EKG in the emergency department showed ST elevations in the inferior leads with reciprocal changes in leads V2-V4. He was taken to the [facility] emerg[facility] for coronary angiogram and PCI. [facility] findings and interventions are as follows: 1- left coronary artery is a large artery that divides into large LAD, large circumflex artery. Left main Has ostial 20% to 30%. 2- left anterior descending artery is a large artery . Minimal irregularities. Medium size diagonal branch looks unremarkable. 3- left circumflex artery is a large artery And totally occluded within the proximal stent with ANH flow 0 4- right coronary artery is large artery and dominant with minimal irregularities however very proximal right PDA has 60% 5- LVEDP was 20 mm Hg and no gradient across aortic valve. 6- LV angiogram shows inferior hypokinesis but also global hypokinesis with estimated ejection fraction 35-40% 6- opening arterial pressure 120/80was and closing pressure was 110/70 7- right femoral artery angiogram shows no significant disease in the right common femoral artery. 8- intravascular ultrasound shows the diameter of the proximal left circumflex artery stent 3.5 mm and the stent well expanded and apposed. The distal stent shows that the diameter 2.5 but the proximal portion was about 3 mm and again well expanded and apposed. Totally occluded proximal and distal left circumflex artery stents status post balloon angioplasty. Residual disease in the proximal portion of the right PDA ff about 60% to be assessed and managed as an outpatient. Feels well today, no chest pain, shortness of breath, or palpitations. DAPT with Plavix, ASA Continue statin Continue metoprolol Ideally would like to add ARB but unable to at this time due to mild hypotension. Consider adding as outpatient if BP allows. Patient had been noncompliant with his Brilinta and statin. Reinforced importance of adherence to these medications as well as ASA Smoking cessation Outpatient referral to cardiac rehab (2) CAD (coronary artery disease): Code(s): I25.10 - Atherosclerotic heart disease of [place] coronary artery without angina pectoris Status: Acute Assessment and Plan: Previous stenting of the circumflex artery how s/p PCI with balloon angioplasty to the proximal and distal circumflex stents. Residual disease in the proximal PDA as described above. (3) Ischemic cardiomyopathy: Code(s): I25.5 - Ischemic cardiomyopathy Status: Acute Assessment and Plan: History of CAD with previous stents and known reduction of systolic function. Echo 12/31/2021 showed mildly reduced left ventricular systolic function with an EF 45-50%. There is akinesis of the mid and basal inferolateral gonzáles. Moderate hypokinesis of the mid and basal anterolateral gonzáles with mild hypokinesis of the basal inferior wall. RV systolic function is reduced. No significant valvular pathology. (4) Tobacco abuse: Code(s): Z72.0 - Tobacco use Status: Acute Assessment and Plan: I counseled him extensively on the need for smoking cessation. DS: Summary Hospital Course Hospital Course: Presented to the emergency department with complaints of chest pain. EKG in the emergency department showed ST elevations in the inferior leads with reciprocal changes in leads V2-V4. He was taken to the [facility] emergently for coronary angiogram and PCI. [facility] findings and interventions are as follows: 1- left coronary artery is a large artery that divides into large LAD, large circumflex artery. Left main Alvarez
== END 2022-01-01 12:22 | disposition home or self-care (01) | DRG 250 ==
LOC: ANHED 21:10 → ANHICU 23:53
PROVIDERS: Internal Medicine; Admitting Provider Internal Medicine Cardiovascular Disease; Emergency Provider Emergency Medicine; PCP Hospitalist; Visit Provider Nurse Practitioner
PROC: 4A023N7 Measurement of Cardiac Sampling and Pressure, Left Heart, Percutaneous Approach (ICD-10-PCS; CPT 93452; principal; 2021-12-30 21:20)
PROC: 02703ZZ Dilation of Coronary Artery, One Artery, Percutaneous Approach (ICD-10-PCS; CPT 92920; 2021-12-30 21:20)
PROC: 02703ZZ Dilation of Coronary Artery, One Artery, Percutaneous Approach (ICD-10-PCS; 2021-12-30 21:20)
PROC: 02703ZZ Dilation of Coronary Artery, One Artery, Percutaneous Approach (ICD-10-PCS; 2021-12-30 21:20)
DX: T82.867A Thrombosis due to cardiac prosthetic devices, implants and grafts, initial encounter (principal); I21.A9 Other myocardial infarction type; I50.22 Chronic systolic (congestive) heart failure; Z91.14 Patient's other noncompliance with medication regimen; F17.210 Nicotine dependence, cigarettes, uncomplicated; I25.10 Atherosclerotic heart disease of native coronary artery without angina pectoris; I25.5 Ischemic cardiomyopathy; K21.9 Gastro-esophageal reflux disease without esophagitis; G47.33 Obstructive sleep apnea (adult) (pediatric); G89.29 Other chronic pain; Z85.46 Personal history of malignant neoplasm of prostate; I25.2 Old myocardial infarction; Z95.5 Presence of coronary angioplasty implant and graft; Z79.82 Long term (current) use of aspirin; Z86.73 Personal history of transient ischemic attack (TIA), and cerebral infarction without residual deficits; Z85.118 Personal history of other malignant neoplasm of bronchus and lung; Z79.02 Long term (current) use of antithrombotics/antiplatelets
CPT/HCPCS: 36415; 71045; 80048; 84443; 84484; 85025; 85610; 85730; 92920; 92978; 93005; 93306; 93458; 96374; 96375; 99291; A9270; C1725; C1753; C1760; C1769; C1887; C1894; G0269; J0461; J0583; J1327; J1644; J1650; J2250; J2270; J2405; J3010; J7030; J7040

== ENCOUNTER 2022-03-07 18:02 | Emergency (ER) | payer MEDICARE, MEDICAID, SELFPAY ==
[2022-03-07] VITALS (15 sets, daily range): BP systolic 100–126; BP diastolic 70–94; PULSE 83–107; RESP 14–22; TEMP 36–36.8; O2SAT 96–100
--- NOTE | ~2022-03-07 | XR_ITS ---
EXAM: XR abdomen/kub 1V DATE: 03/07/2022 21:14 HISTORY: NG placement for small bowel obst . COMPARISON: CT chest abdomen and pelvis, same date. FINDINGS: NG tube, tip and side port projecting over the distal stomach with the tip possibly transp yloric. Clear lung bases. Multiple loops of dilated small bowel in the left upper quadrant and mid ab domen. No organomegaly. No abnormal abdominal calcification. Regional bones and soft tissues normal f or age. IMPRESSION: Distal positioning of the NG tube, consider 13 cm retraction. Reviewed, dictated and finalized at location K.
--- NOTE | ~2022-03-07 | CT_ITS ---
EXAMINATION: CT chest abdomen pelvis wo con DATE: 03/07/2022 19:28 INDICATION: N/V/C x 4 days, hx CA . TECHNIQUE: Computed tomography (CT) of the chest, abdomen, and pelvis was performed without intraveno us contrast. Automated exposure control and iterative reconstruction technique were employed. The dos e-length product was 329.96 mGy-cm. COMPARISON: 08/21/2021. FINDINGS: Thoracic aorta: No significant dilation or calcification. Lung parenchyma and airways: Paraseptal emphysematous change. Right lower lobe post surgical change. Unchanged pulmonary nodules. Thoracic inlet, axillae and chest wall: No thyroid or sofft tissue mass. No axillary lymphadenopathy. Mediastinum: No mass or lymphadenopathy. Heart and pericardium: Right atrial enlargement. No pericardial effusion. Coronary artery calcifications: Moderate. Possible coronary artery stent. Pleura: No effusion or mass. Thoracic bones: No acute osseous finding in the chest. ABDOMEN/PELVIS: Liver: Normal. Biliary/Gallbladder: Gallbladder is normal. No bile duct dilation. Pancreas: No mass or duct dilation. Spleen: Normal. Adrenals:No mass. Kidneys: No mass, stone, or hydronephrosis. GI tract: Gastric and small bowel dilation. Possible transition point in the mid lower abdomen (image 2 out of 2 of series 3). Normal appendix. Diverticulosis without diverticulitis. Mesentery/Peritoneum: No ascites, mass, or free air. Retroperitoneum: No mass. Scattered atherosclerotic calcification. Mild fusiform infrarenal abdominal aortic aneurysm. Pelvis: Bladder wall thickening likely due to outlet obstruction from prostatomegaly. Soft Tissues: Soft tissues and body wall unremarkable. Abdominopelvic bones: No acute osseous finding in the abdomen/pelvis. IMPRESSION: Distal small bowel obstruction with a transition point in the mid lower abdomen, possibly secondary t o adhesion. Reviewed, dictated and finalized at location K. IMPRESSION: Distal small bowel obstruction with a transition point in the mid lower abdomen , possibly secondary to adhesion.
--- NOTE | 2022-03-07 18:24 | ED.ABDPAIN ---
HPI - Abdominal Pain General Chief Complaint: Abdominal Pain Stated Complaint: vomiting, abd pain Time Seen by Provider: 03/07/22 18:24 Source: patient Mode of arrival: ambulatory History of Present Illness HPI narrative: 66 year smoker with a history LIBRADO, lung mass status post recent removal, coronary artery disease status post stent /recent angioplasty, CHF with an EF of 35%, prostate cancer, CVA, status post removal of meningioma, chronic narcotic use presents to the ER with -- constipation the past 6 days -- nausea with multiple episodes vomiting for the past 2-3 days -- diffuse abdominal pain -- ongoing right lower chest wall pain from recent right lobectomy. MD elicited complaint: abdominal pain Pertinent past history: constipation and myocardial infarction Onset (ago): day(s) ( 6 days) Pain Consistency: intermittent Location: diffuse Severity: severe Quality: cramping Radiation: none Migration to: no migration Exacerbating factors: nothing Relieving factors: nothing Associated symptoms: nausea, vomiting, constipation, anorexia and other ( abdominal distension. abdominal pain) Treatments prior to arrival: prescription analgesics Related Data Home Medications Medication Instructions Recorded Confirmed hydrocodone 10 mg-acetaminophen 1 tablet PO Q4H PRN Pain 03/07/20 03/07/22 325 mg tablet pregabalin 150 mg capsule 150 mg PO QID 12/31/20 03/07/22 ergocalciferol (vitamin D2) 50,000 50,000 unit PO WEEKLY 12/30/21 03/07/22 unit tablet famotidine 20 mg tablet 20 mg PO Q12HR PRN Indigestion 12/30/21 03/07/22 ciprofloxacin HCl 0.3 % eye drops 2 drp EACH EYE DAILY 03/07/22 03/07/22 methylnaltrexone 150 mg tablet 1 tablet PO TID 03/07/22 03/07/22 (Relistor) Allergies Allergy/AdvReac Type Severity Reaction Status Date / Time morphine Allergy Mild Nausea Verified 03/07/22 18:19 oxycodone Allergy Mild Nausea Verified 03/07/22 18:19 phenytoin Allergy Mild HIVES Verified 03/07/22 18:19 azithromycin Allergy Unknown Nausea and Verified 03/07/22 18:19 Vomiting topiramate Allergy Unknown Unknown Verified 03/07/22 18:19 pantoprazole Allergy Chest Pain Verified 03/07/22 18:19 red dye Allergy Rash Verified 03/07/22 18:19 Seizure medication Allergy Other Uncoded 03/07/22 18:19 Review of Systems Review of Systems: All systems reviewed & are unremarkable except as noted in HPI and below Constitutional: Constitutional: Reports as per HPI and Reports no additional constitutional complaints Eyes: Eyes: Reports as per HPI and Reports no additional eye complaints ENT: Reports system reviewed and no additional complaints, except as documented and Reports as per HPI Cardiovascular: Cardiovascular: Reports as per HPI and Reports no additional cardiovascular complaints Respiratory: Respiratory: Reports as per HPI, Reports chest congestion and Reports cough Comments: right lower chest pain from recent right lobectomy Gastrointestinal: Gastrointestinal: Reports as per HPI, Reports abdominal pain, Reports constipation, Reports heartburn, Reports nausea and Reports vomiting Genitourinary: Genitourinary: Reports no additional male genitourinary complaints and Reports as per HPI Musculoskeletal: Musculoskeletal: Reports no additional musculoskeletal complaints, Reports as per HPI, Reports back pain and Reports myalgias Integumentary/Breasts: Skin/Breast: Reports system reviewed and no additional complaints, except as docu Neurologic: Reports system reviewed and no additional complaints, except as documented, Reports as per HPI and Reports weakness Psychiatric: Psychiatric: Reports no additional psychiatric complaints and Reports as per HPI Endocrine: Endocrine: Reports no additional endocrine complaints and Reports as per HPI Hematologic/Lymphatic: Hematologic/Lymphatic: Reports no additional hematologic/lymphatic complaints and Reports as per HPI Allergic/Immunologic: Allergic/Immunologic: Reports no additional allerg
[2022-03-07] MEDS: LACTATED RINGERS 1,000 ML 999 ML IV CONT (18:50)
[2022-03-07] MEDS: ONDANSETRON INJ 4 MG/2 ML VIAL IV PUSH (18:50)
[2022-03-07 19:01] LABS: Basophils Absolute Auto 0.03 K/mm3 (0.00-0.10); Basophils Percent Auto 0.3 % (0.0-1.0); Eosinophils Absolute Auto 0.04 K/mm3 (0.02-0.50); Eosinophils Percent Auto 0.4 % (1.0-6.0); Hematocrit 44.5 % (40.0-54.0); Hemoglobin 14.2 g/dL (14.0-18.0); Immature Granulocyte Absolute 0.02 K/mm3 (0.00-0.00); Immature Granulocyte Percent A 0.2 % (0.0-0.0); Immature Platelet Fraction Pct 2.2 % (1.0-7.0); Lymphocytes Absolute Auto 0.47 K/mm3 (1.10-4.50); Lymphocytes Percent Auto 4.5 % (18.0-42.0); Mean Corpuscular HGB Conc 31.9 g/dL (32.0-36.0); Mean Corpuscular Hemoglobin 29.8 pg (27.0-31.0); Mean Corpuscular Volume 93.3 fL (78.0-102.0); Mean Platelet Volume 9.3 fl (8.7-11.0); Monocytes Absolute Auto 1.13 K/mm3 (0.10-0.90); Monocytes Percent Auto 10.9 % (2.0-11.0); Neutrophils Absolute Auto 8.7 K/mm3 (1.7-7.2); Neutrophils Percent Auto 83.7 % (50.0-70.0); Platelet Count Result 537 K/mm3 (150-420); Red Blood Count 4.77 M/mm3 (4.70-6.10); Red Cell Distribution Width 14.7 % (11.6-14.4); White Blood Count 10.4 K/mm3 (4.8-10.8)
[2022-03-07 19:17] LABS: Partial Thromboplastin Time 29.6 SEC (23.90-30.70); Prothrombin Time 10.9 Seconds (9.50-12.10)
[2022-03-07 19:19] LABS: Alanine Aminotransferase 18 U/L (16-63); Albumin Level 3.9 g/dL (3.4-5.0); Alkaline Phosphatase 147 U/L (46-116); Anion Gap 11 mmol/L (8-16); Aspartate Amino Transferase 18 U/L (15-37); Bilirubin,Total 0.6 mg/dL (0.00-1.00); Blood Urea Nitrogen 39 mg/dL (7-18); Calcium 9.6 mg/dL (8.5-10.1); Carbon Dioxide 29 mmol/L (21-32); Chloride 97 mmol/L (98-108); Estimated Glomerular Filt Rate 43; Glucose 129 mg/dL (70-99); Lipase 63 U/L (73-393); Osmolality Calculated 295 mOsm/kg (285-295); Potassium 4.4 mmol/L (3.5-5.1); Sodium 137 mmol/L (136-145); Total Protein 7.9 g/dL (6.4-8.2)
[2022-03-07 19:23] LABS: Lactic Acid Reflex 1.8 mmol/L (0.4-2.0)
--- NOTE | 2022-03-07 19:27 | PC.NURSE ---
RN went to check on pt after returning from CT. Pt states he is still c/o nausea and would like something else. RN called ERP and he ordered 10mg metoclopramide hydrochloride IV push stat one time. RN read order back to ERP to confirm.
[2022-03-07] MEDS: METOCLOPRAMIDE HCL INJ 10 MG/2 ML VIAL IV PUSH (19:40)
[2022-03-07] MEDS: SODIUM CHLORIDE 0.9% IV 500 ML 999 ML IV CONT (20:19)
[2022-03-07] MEDS: HYDROmorphone HCL INJ (*CRX) 2 MG/ML VIAL 0.5 MG IV PUSH (21:14)
--- NOTE | 2022-03-07 21:18 | ECG_ITS ---
Measurements Intervals [facility] Rate: 94 P: 72 CO: 155 QRS: 63 QRSD: 98 T: 217 QT: 358 QTc: 449 Interpretive Statements SINUS RHYTHM NONSPECIFIC T-WAVE CHANGES COMPARED TO THE PRIOR TRACING, THE ST CHANGES HAVE IMPROVED. Electronically Signed On 03-08-2022 9:01:09 CDT by Angelina Baeza M.D.
[2022-03-07] MEDS: LACTATED RINGERS 1,000 ML 150 ML IV CONT (21:25)
[2022-03-07 21:32] LABS: Add Urine Microscopic? YES; Appearance Urine Clear (Clear); Bilirubin Urine 1+ (Negative); Blood Urine Negative (Negative); Color Urine Dark Yellow (Yellow); Glucose Urine UA Negative (Negative); Ketones Urine Trace (Negative); Leukocyte Esterase Ur Negative (Negative); Nitrate Urine Negative (Negative); Protein Urine 1+ (Negative); Specific Grav Ur >= 1.030 (1.010-1.020); Urobilinogen Urine 0.2 mg/dL (0.2-1.0); pH Urine 5.5 (5.0-8.0)
[2022-03-07 21:38] LABS: Hyaline Casts Urine 50+ /lpf; Mucus Urine Heavy /lpf; RBC Urine 0-2 /hpf (0-2); Squamous Epithelial Cell Urine Occasional /hpf (Few); WBC Urine 0-3 /hpf (0-3)
[2022-03-07 21:41] LABS: Troponin I 15.5 ng/L (0.00-60.4)
[2022-03-07 21:49] LABS: SARS-CoV-2 Ag Negative (Negative)
--- NOTE | 2022-03-07 22:19 | PC.NURSE ---
Pt states he requests the closest ambulance service to the hospital. RN called [facility] dispatch for an ambulance. Dispatcher states she will put the page out for an ambulance.
--- NOTE | 2022-03-07 22:35 | PC.NURSE ---
RN gave report to [facility] and transferred pt. Pt had received 156mls of LR IV. IV was switched to a dial flow at 150mls/hr of the LR solution IV. Pt's NG tube was disconnected from suction and capped.
== END 2022-03-07 22:45 | disposition short-term general hospital (02) ==
PROVIDERS: Emergency Provider Internal Medicine Critical Care Medicine; PCP Hospitalist
DX: K56.601 Complete intestinal obstruction, unspecified as to cause (principal); N17.9 Acute kidney failure, unspecified; Z20.822 Contact with and (suspected) exposure to COVID-19; I25.10 Atherosclerotic heart disease of native coronary artery without angina pectoris; K21.9 Gastro-esophageal reflux disease without esophagitis; Z85.46 Personal history of malignant neoplasm of prostate; F17.200 Nicotine dependence, unspecified, uncomplicated
CPT/HCPCS: 36415; 71250; 74018; 74176; 80053; 81001; 83605; 83690; 84484; 85025; 85055; 85610; 85730; 87426; 93005; 96361; 96374; 96375; 99285; C9803; J1170; J2405; J2765; J7040; J7120

== ENCOUNTER 2022-03-07 23:57 | Inpatient (IN) | payer MEDICARE, MEDICAID, SELFPAY ==
--- NOTE | ~2022-03-07 | XR_ITS ---
EXAMINATION: XR abdomen obstructive series DATE: 03/12/2022 07:52 INDICATION: Small bowel obstruction. TECHNIQUE: Upright and supine views of the abdomen were obtained. COMPARISON: Abdomen radiograph 03/11/2022, CT abdomen and pelvis 03/07/2022 FINDINGS: There is dilated small bowel in left abdomen. The colon is normal in caliber. There is scar ring at right lung base. No free intraperitoneal gas. IMPRESSION: 1. Dilated small bowel with interval improvement, consistent with small bowel obstruction. Reviewed, dictated and finalized at location A. IMPRESSION: 1. Dilated small bowel with interval improvement, consistent with small bowel o bstruction.
--- NOTE | ~2022-03-07 | XR_ITS ---
EXAMINATION: XR abdomen obstructive series DATE: 03/08/2022 08:47 INDICATION: Small bowel obstruction TECHNIQUE: Upright and supine views of the abdomen were obtained. COMPARISON: 03/07/2022 FINDINGS: The nasogastric tube is in the second portion of the duodenum. There are persistently dilat ed loops of small bowel which appear to have decreased in number. No free intracranial gas is identif ied. There is mild osteoarthritis of the hips. IMPRESSION: 1. Small bowel obstruction with apparent slight improvement. Reviewed, dictated and finalized at location A.
--- NOTE | ~2022-03-07 | XR_ITS ---
EXAMINATION: XR abdomen obstructive series DATE: 03/11/2022 09:18 INDICATION: Small bowel obstruction. TECHNIQUE: Upright and supine views of the abdomen on 3 radiographs were obtained. COMPARISON: Abdomen radiograph 03/10/22 FINDINGS: There are persistently dilated loops of small bowel. The colon is decompressed and contains oral contrast. There are diverticula in the sigmoid colon. No free intraperitoneal gas. There are ch anges of right lower lobectomy in the chest. IMPRESSION: 1. Persistently dilated loops of small bowel, consistent with small bowel obstruction. Reviewed, dictated and finalized at location A. IMPRESSION: 1. Persistently dilated loops of small bowel, consistent with small bowel obstr uction.
--- NOTE | ~2022-03-07 | XR_ITS ---
EXAMINATION: XR abdomen obstructive series DATE: 03/10/2022 08:04 INDICATION: Small bowel obstruction TECHNIQUE: Supine and upright views of the abdomen. FINDINGS: Comparison small bowel series dated 03/09/2022 The visualized lung parenchyma is normal.. There is residual contrast in the colon which is nondilate d. There are dilated small bowel loops in the left abdomen. No free air. Small right pleural effusion . IMPRESSION: 1. Persistent dilated small bowel, consistent with partial obstruction. 2: Small right pleural effusion. Reviewed, dictated and finalized at location B.
--- NOTE | ~2022-03-07 | XR_ITS ---
EXAMINATION: XR abdomen/kub 1V INDICATION: Small bowel obstruction TECHNIQUE: Supine view of the abdomen is obtained. COMPARISON: 03/07/2022 FINDINGS: The nasogastric tube is in the first portion of the duodenum. There are persistently dilate d loops of small bowel in the left abdomen. The visualized lung bases are clear. No free intraperiton eal gas is identified. IMPRESSION: 1. Small bowel obstruction. 2. Tip of the nasogastric tube in the duodenum. Consider retracting 7-8 cm. Reviewed, dictated and finalized at location A.
--- NOTE | ~2022-03-07 | XR_ITS ---
EXAMINATION: XR sm bowel follow through DATE: 03/09/2022 19:43 INDICATION: Small bowel obstruction. TECHNIQUE: Oral contrast was administered, and a time course of radiographs of the abdomen was obtain ed. Fluoroscopy of the small bowel was not performed. Fluoroscopy exposure time was 0 minutes. The to bucky number of images was 10. COMPARISON: CT abdomen and pelvis 03/07/2022 FINDINGS: The nasogastric tube tip is in the proximal duodenum. There are multiple dilated loops of small bowel . At 9.5 hours, contrast is in nondilated distal small bowel, but has not yet reached the colon. IMPRESSION: 1. Small bowel obstruction. Reviewed, dictated and finalized at location E. IMPRESSION: 1. Small bowel obstruction.
--- NOTE | ~2022-03-07 | XR_ITS ---
XR abdomen obstructive series 03/09/2022 08:18 Indication: Follow-up on small bowel obstruction Procedure: Supine and upright views of abdomen Comparison: 03/08/2022 Findings: NG tube tip likely in the duodenum. There are mildly dilated small bowel loops with multipl e air-fluid levels in the midabdomen. No free air. Small right pleural effusion. Impression: 1: Dilated small bowel with air-fluid levels, consistent with obstruction. No significant change. 2: NG tube tip in the duodenum. Reviewed, dictated and finalized at location B. Impression: 1: Dilated small bowel with air-fluid levels, consistent with obstruction. No s ignificant change. 2: NG tube tip in the duodenum.
[2022-03-07 23:15] VITALS: BP 125/73; PULSE 91; RESP 18; TEMP 36.4; O2SAT 96; BMI 18.3
--- NOTE | 2022-03-08 00:03 | ADMGEN ---
This patient, Iftikhar Jimenez, was admitted to [facility] Surg Room 328-01. Patient/family oriented to hospital policies and general routines including ID bracelet, bed and alarms, visiting hours, pain management, procedures, bathroom and other care routines, personal items, smoking policy, room service/diet, and visiting hours. Information on how to activate the Rapid Response Team has been discussed. Patient/Family are encouraged to report perceived risks to care and to ask questions if they do not understand what they are told or what they should do.
[2022-03-08] MEDS: HYDROmorphone HCL INJ (*CRX) 1 MG/ML SYR IV PUSH ×7 (01:06→20:14)
--- NOTE | 2022-03-08 01:32 | PM.IMHP ---
H&P: HPI History of Present Illness Date/Time: 03/08/22 01:32 Chief Complaint: Abdominal pain Narrative: This is a 66-year-old male with past medical history significant for coronary artery disease, stroke, chronic narcotic dependence, dysphagia, gastroesophageal reflux disease, obstructive sleep apnea, prostate cancer, tobacco dependence. Patient comes as a transfer from outside hospital due to abdominal pain, nausea, vomiting, constipation, for 3 days or so, decreased appetite, a workup was significant for CT of abdomen and pelvis with a small bowel obstruction. Patient denies any fevers, rigors, chills, cough, sputum production, chest pain, palpitations, syncope, near syncope or lightheadedness, no leg swelling, no calves pain. Patient has been transferred to [facility] for further evaluation management and treatment. Review of Systems Review of Systems: Nausea, vomiting, abdominal pain, constipation. Constitutional: Constitutional: Denies chills, Denies fever(s) and Reports poor appetite Eyes: Eyes: Denies change in vision ENT: Denies dysphagia, Denies nasal congestion, Denies nasal discharge and Denies odynophagia Cardiovascular: Cardiovascular: Denies chest pain, Denies pedal edema, Denies irregular heart rhythm, Denies claudication, Denies lightheadedness, Denies radiating jaw, neck or arm pain and Denies dyspnea on exertion Respiratory: Respiratory: Denies change in phlegm color, Reports cough, Denies excessive phlegm production and Denies dyspnea Gastrointestinal: Gastrointestinal: Reports abdominal pain, Denies dyspepsia, Denies heartburn, Reports nausea and Reports vomiting Genitourinary: Genitourinary: Denies dysuria Musculoskeletal: Musculoskeletal: Denies joint swelling Integumentary/Breasts: Skin/Breast: Denies rash Neurologic: Denies focal weakness and Denies Sensory deficit (Neuro) Psychiatric: Psychiatric: Reports no additional psychiatric complaints and Reports as per HPI Endocrine: Endocrine: Denies cold intolerance, Denies fatigue, Denies flushing, Denies heat intolerance, Denies polyphagia, Denies polydipsia and Denies palpitations Hematologic/Lymphatic: Hematologic/Lymphatic: Reports no additional hematologic/lymphatic complaints and Reports as per HPI Allergic/Immunologic: Allergic/Immunologic: Reports no additional allergic/immunologic complaints and Reports as per HPI [facility] Past Medical History Medical History (Updated 03/08/22 @ 05:41 by Susi Louis MD) Brain tumor 2004 meningioma CAD (coronary artery disease) Chronic narcotic use CVA (cerebral vascular accident) Dysphagia GERD (gastroesophageal reflux disease) Mediastinal mass LIBRADO (obstructive sleep apnea) Prostate cancer The patient stated that he is being seen outpatient for this Pulmonary HTN Smoker Systolic CHF 10/15/2018 TTE EF of 40% at [facility] Weight loss Surgical History Surgical History H/O brain surgery History of coronary artery stent placement x 5 2011 History of ear surgery Hx of fusion of cervical spine Family History Family History Father Colon cancer Mother Colon cancer Social History Social History Social History: The patient has 3 children. He is . He now lives home alone. His daughter was living with them until she moved out to live with her boyfriend. The patient is disabled. He denies any alcohol marijuana or illicit drugs. Patient continues to smoke a half a pack a cigarettes a day for least 50 years. The patient does not have a power tax attorney and would like to be a full code. Smoking packs per day: 0.5 Smoking cigarettes per day: 10.0 Years smoked: 45 Smoking pack-years: 22.50 Smoking status: Current every day smoker Tobacco type: cigarettes Additional smoking assessment comments: down to less than
[2022-03-08] MEDS: DEXTROSE 5%/0.45% SOD CHL 1,000 ML 75 ML IV CONT ×2 (04:03→17:10)
[2022-03-08 06:00] VITALS: BP 125/68; PULSE 96; RESP 18; TEMP 36.7; O2SAT 95
[2022-03-08 07:11] LABS: Basophils Percent Auto 0.4 % (0.2-1.2); Eosinophils Absolute Auto 0.2 K/mm3 (0-0.3); Eosinophils Percent Auto 4.3 % (0-4.4); Hematocrit 40.3 % (42.0-52.0); Hemoglobin 12.7 g/dL (14.0-18.0); Immature Granulocyte Absolute 0.01 K/mm3 (0.00-0.031); Immature Granulocyte Percent A 0.2 % (0-0.5); Lymphocytes Absolute Auto 0.64 K/mm3 (0.9-3.2); Lymphocytes Percent Auto 12.6 % (18.3-44.2); Mean Corpuscular HGB Conc 31.5 g/dl (32-36); Mean Corpuscular Hemoglobin 29.8 pg (26-34); Mean Corpuscular Volume 94.6 fl (80-100); Mean Platelet Volume 9.4 fl (7.4-10.4); Monocytes Absolute Auto 0.9 K/mm3 (0.1-0.6); Monocytes Percent Auto 17.8 % (2.6-8.5); Neutrophils Absolute Auto 3.3 K/mm3 (1.3-6.7); Neutrophils Percent Auto 64.7 % (45.5-73.1); Platelet Count Result 471 k/mm3 (150-375); Red Blood Count 4.26 M/mm3 (4.6-6.20); Red Cell Distribution Width 15.3 % (11.5-14.5); White Blood Count 5.1 K/mm3 (4.5-10.0)
[2022-03-08 07:17] LABS: Alanine Aminotransferase 13 U/L (6-50); Albumin Level 4.2 g/dL (3.5-5.1); Alkaline Phosphatase 118 U/L (38-126); Anion Gap 7 mmol/L (8-16); Aspartate Amino Transferase 23 U/L (17-59); Bilirubin,Total 0.6 mg/dL (0.2-1.3); Blood Urea Nitrogen 43 mg/dL (9-20); Calcium 8.8 mg/dL (8.4-10.2); Carbon Dioxide 35 mmol/L (22-30); Chloride 97 mmol/L (98-107); Estimated CRCL calculation 42 ml/min; Estimated Glomerular Filt Rate 51; Glucose 128 mg/dL (65-110); Phosphorus 3.9 mg/dL (2.5-4.5); Sodium 139 mmol/L (137-145)
[2022-03-08 07:20] LABS: INR 1.1; Prothrombin Time 13.4 Seconds (11.1-14.7)
[2022-03-08 07:21] LABS: Partial Thromboplastin Time 33.9 SECONDS (22.3-36.8)
[2022-03-08 08:10] LABS: Troponin I 0.021 ng/mL (0.000-0.034)
[2022-03-08] MEDS: BENZOCAINE/MENTHOL (*BKC) 18 EA LOZENGE 1 LOZENGE PO (09:05)
[2022-03-08] MEDS: SALINE 0.65% NAS SOLN 44 ML BTL 1 SPRAY NASAL (09:48)
[2022-03-08] MEDS: PHENOL/SOD PHENO SPRAY CHERRY (*BKC) 1 SPRAY MUCOUS MEM (10:35)
--- NOTE | 2022-03-08 11:00 | P.PNIM_ITS ---
Progress Note: A&P Assessment and Plan (1) Small bowel obstruction: Code(s): K56.609 - Unspecified intestinal obstruction, unspecified as to partial versus complete obstruction Status: Acute Assessment and Plan: * Abd/Pel xray small bowel obstruction * Abd/Pel CT Distal small bowel obstruction with a transition point in the mid lower abdomen, possibly secondary to adhesion. * General Surgery consulted * NPO * NG to low intermittent suction, with roughly 850ml out * IV fluids * Daily intake and output (2) Throat pain: Code(s): R07.0 - Pain in throat Status: Acute Assessment and Plan: * Secondary to NG tube * Cepacol and Chloraseptic spray ordered for added comfort * Pain medication also on board if it is severe. (3) Ischemic cardiomyopathy: Code(s): I25.5 - Ischemic cardiomyopathy Status: Acute Assessment and Plan: * Appears compensated * Continue to monitor * Echo echo from 12/31/21 systolic function 45-50% with moderate hypokinesis of the mid and basal anterolateral gonzáles with mild hypokinesis of the basal inferior wall (4) Systolic CHF: Code(s): I50.20 - Unspecified systolic (congestive) heart failure Status: Acute Assessment and Plan: * Patient appears euvolemic * Continue to monitor * Echo shows a chronic systolic heart failure * Trend daily weights * Does not appear to be in acute exacerbation (5) LIBRADO (obstructive sleep apnea): Code(s): G47.33 - Obstructive sleep apnea (adult) (pediatric) Status: Acute Assessment and Plan: * CPAP at nighttime (6) GERD (gastroesophageal reflux disease): Code(s): K21.9 - Gastro-esophageal reflux disease without esophagitis Status: Acute Assessment and Plan: * Continue PPI (7) Chronic pain: Code(s): G89.29 - Other chronic pain Status: Acute Assessment and Plan: * Continue pain management * Trend pain scores * Adjust therapy as indicated (8) Tobacco abuse: Code(s): Z72.0 - Tobacco use Status: Acute Assessment and Plan: * Nicotine patch as needed (9) Prostate CA: Code(s): C61 - Malignant neoplasm of prostate Status: Acute Assessment and Plan: * Follow-up in outpatient setting Time Spent With Patient Time with patient: Greater than 35 minutes Subjective Date/time seen: 03/08/22 1100 Interval history: 03/09/22 1100 Patient was lying in bed. Patient stated that he is still having a little abdominal pain especially when he eats ice chips. He denies any nausea however his biggest complaint is throat pain. He stated from the tube which makes sense. Patient also complained of being short of breath however he said he is always short of breath. He denies any chest pain. It was noted that the patient's troponin was 15.5 however a repeat troponin was drawn and it was 0.023. EKG does show sinus rhythm. Seems to be more lab error issue. 03/08/22? 01:32 This is a 66-year-old male with past medical history significant for coronary artery disease, stroke, chronic narcotic dependence, dysphagia, gastroesophageal reflux disease, obstructive sleep apnea, prostate cancer, tobacco dependence.? Patient comes as a transfer from outside hospital due to abdominal pain, naus
--- NOTE | 2022-03-08 11:00 | PM.IMPN ---
Progress Note: A&P Assessment and Plan (1) Small bowel obstruction: Code(s): K56.609 - Unspecified intestinal obstruction, unspecified as to partial versus complete obstruction Status: Acute Assessment and Plan: Abd/Pel xray small bowel obstruction Abd/Pel CT Distal small bowel obstruction with a transition point in the mid lower abdomen, possibly secondary to adhesion. General Surgery consulted NPO NG to low intermittent suction, with roughly 850ml out IV fluids Daily intake and output (2) Throat pain: Code(s): R07.0 - Pain in throat Status: Acute Assessment and Plan: Secondary to NG tube Cepacol and Chloraseptic spray ordered for added comfort Pain medication also on board if it is severe. (3) Ischemic cardiomyopathy: Code(s): I25.5 - Ischemic cardiomyopathy Status: Acute Assessment and Plan: Appears compensated Continue to monitor Echo echo from 12/31/21 systolic function 45-50% with moderate hypokinesis of the mid and basal anterolateral gonzáles with mild hypokinesis of the basal inferior wall (4) Systolic CHF: Code(s): I50.20 - Unspecified systolic (congestive) heart failure Status: Acute Assessment and Plan: Patient appears euvolemic Continue to monitor Echo shows a chronic systolic heart failure Trend daily weights Does not appear to be in acute exacerbation (5) LIBRADO (obstructive sleep apnea): Code(s): G47.33 - Obstructive sleep apnea (adult) (pediatric) Status: Acute Assessment and Plan: CPAP at nighttime (6) GERD (gastroesophageal reflux disease): Code(s): K21.9 - Gastro-esophageal reflux disease without esophagitis Status: Acute Assessment and Plan: Continue PPI (7) Chronic pain: Code(s): G89.29 - Other chronic pain Status: Acute Assessment and Plan: Continue pain management Trend pain scores Adjust therapy as indicated (8) Tobacco abuse: Code(s): Z72.0 - Tobacco use Status: Acute Assessment and Plan: Nicotine patch as needed (9) Prostate CA: Code(s): C61 - Malignant neoplasm of prostate Status: Acute Assessment and Plan: Follow-up in outpatient setting Time Spent With Patient Time with patient: Greater than 35 minutes Subjective Date/time seen: 03/08/22 1100 Interval history: 03/09/22 1100 Patient was lying in bed. Patient stated that he is still having a little abdominal pain especially when he eats ice chips. He denies any nausea however his biggest complaint is throat pain. He stated from the tube which makes sense. Patient also complained of being short of breath however he said he is always short of breath. He denies any chest pain. It was noted that the patient's troponin was 15.5 however a repeat troponin was drawn and it was 0.023. EKG does show sinus rhythm. Seems to be more lab error issue. 03/08/22? 01:32 This is a 66-year-old male with past medical history significant for coronary artery disease, stroke, chronic narcotic dependence, dysphagia, gastroesophageal reflux disease, obstructive sleep apnea, prostate cancer, tobacco dependence.? Patient comes as a transfer from outside hospital due to abdominal pain, nausea, vomiting, constipation, for 3 days or so, decreased appetite, a workup was significant for CT of abdomen and pelvis with a small bowel obstruction.? Patient denies any fevers, rigors, chills, cough, sputum production, chest pain, palpitations, syncope, near syncope or lightheadedness, no leg swelling, no calves pain.? Patient has been transferred to [facility] for further evaluation management and treatment. Review of Systems Review of Systems: All systems reviewed & are unremarkable except as noted in HPI and below Exam Const: General: ill appearing chronically, tired a
[2022-03-08 14:00] VITALS: BP 102/71; PULSE 95; RESP 16; TEMP 35.9; O2SAT 96
--- NOTE | 2022-03-08 15:49 | PM.CNGS ---
Assessment and Plan Assessment and plan (1) Small bowel obstruction: Code(s): K56.609 - Unspecified intestinal obstruction, unspecified as to partial versus complete obstruction Status: Acute Assessment and Plan: After exam and review of imaging plan will be to repeat plain abdominal films in the morning. Unless these are significantly better probably will proceed with a small-bowel follow-through using the NG tube. It appears that his stomach and proximal small bowel are well decompressed on today's plain films. His abdominal pain has resolved but he is still not passing flatus and has not had a bowel movement in 5 days. Will give him 1 dose of milk of magnesia down the NG tube later today. Will have him walk in the hallways. He is using Chloraseptic spray and/or Cepacol lozenges for his throat pain. Since he has not had previous surgery either the radiation treatments or possible undiagnosed metastatic disease in the peritoneum are the likely causes of his current small-bowel obstruction. Another possibility is constipation since he has not had bowel movement 5 days and he is on chronic narcotics. (2) Smoker: Code(s): F17.200 - Nicotine dependence, unspecified, uncomplicated Status: Acute Assessment and Plan: As per hospitalist may need a nicotine patch (3) GERD (gastroesophageal reflux disease): Code(s): K21.9 - Gastro-esophageal reflux disease without esophagitis Status: Acute Assessment and Plan: IV PPI (4) Chronic pain: Code(s): G89.29 - Other chronic pain Status: Acute Assessment and Plan: patient receiving p.r.n. Dilaudid well NG is in place. (5) Ischemic cardiomyopathy: Code(s): I25.5 - Ischemic cardiomyopathy Status: Acute Assessment and Plan: if patient goes the surgery we may need to involve Cardiology. Will go ahead and type and screen patient in the a.m. in case he will need platelets since he is on anti-platelet therapy after his recent cardiac catheterization. (6) Prostate CA: Code(s): C61 - Malignant neoplasm of prostate Status: Acute Assessment and Plan: Patient has completed radiation treatments for this. He has outpatient follow-up for this with his radiation oncologist. (7) Constipation: Code(s): K59.00 - Constipation, unspecified Status: Acute Assessment and Plan: Will give 1 dose of milk of magnesia down the NG tube today to see if this helps resolve his blockage and constipation. (8) Systolic CHF: Code(s): I50.20 - Unspecified systolic (congestive) heart failure Status: Acute Assessment and Plan: Hospitalist to convert patient to IV medication while NG in place. (9) LIBRADO (obstructive sleep apnea): Code(s): G47.33 - Obstructive sleep apnea (adult) (pediatric) Status: Acute Assessment and Plan: Patient may need hospital provided CPAP. Will leave this up to the hospitalist. (10) Chronic narcotic use: Code(s): F11.90 - Opioid use, unspecified, uncomplicated Status: Acute (11) History of coronary artery stent placement: Code(s): Z95.5 - Presence of coronary angioplasty implant and graft Status: Acute Assessment and Plan: On anti-platelet therapy. Will need to have platelets available at the time of surgery if patient requires urgent surgery for small bowel obstruction. History of Present Illness Consult details Consult date: 03/08/22 Reason for consult: abdominal pain ( with signs of small-bowel obstruction on CT) Requesting physician: Susi Louis MD Narrative: This is a 66-year-old White male with a past medical history significant for coronary artery disease, stroke, brain surgery for a meningioma, chronic narcotic dependence ( seeing a pain management doctor), dysphagia, gastroesophageal reflux disease, obstructive sleep apnea, prostate cancer (with recently completed radiati
[2022-03-08] MEDS: MAGNESIUM HYDROXIDE SUSP 30 ML UDC FEED TUBE (16:08)
[2022-03-08] MEDS: ONDANSETRON INJ 4 MG/2 ML VIAL IV PUSH (20:14)
[2022-03-08] MEDS: FAMOTIDINE 20 MG/2 ML VIAL IV PUSH (20:14)
[2022-03-08 21:35] VITALS: BP 96/54; PULSE 78; RESP 20; TEMP 36.6; O2SAT 98
[2022-03-09] MEDS: HYDROmorphone HCL INJ (*CRX) 1 MG/ML SYR IV PUSH ×5 (01:39→17:21)
[2022-03-09] MEDS: ONDANSETRON INJ 4 MG/2 ML VIAL IV PUSH ×3 (04:49→17:21)
[2022-03-09 05:42] VITALS: BP 106/69; PULSE 95; RESP 16; TEMP 36.2; O2SAT 98
[2022-03-09 06:41] LABS: Hematocrit 39.4 % (42.0-52.0); Hemoglobin 12.5 g/dL (14.0-18.0); Mean Corpuscular HGB Conc 31.7 g/dl (32-36); Mean Corpuscular Hemoglobin 29.8 pg (26-34); Mean Corpuscular Volume 93.8 fl (80-100); Mean Platelet Volume 9.9 fl (7.4-10.4); Platelet Count Result 419 k/mm3 (150-375); Red Cell Distribution Width 14.8 % (11.5-14.5); White Blood Count 3.7 K/mm3 (4.5-10.0)
[2022-03-09 06:53] LABS: Lactic Acid Reflex 1.1 mmol/L (0.7-2.0)
[2022-03-09 07:03] LABS: Alanine Aminotransferase 11 U/L (6-50); Albumin Level 3.9 g/dL (3.5-5.1); Alkaline Phosphatase 112 U/L (38-126); Aspartate Amino Transferase 24 U/L (17-59); Bilirubin,Total 0.6 mg/dL (0.2-1.3); Blood Urea Nitrogen 35 mg/dL (9-20); Calcium 8.3 mg/dL (8.4-10.2); Carbon Dioxide > 40 mmol/L (22-30); Chloride 92 mmol/L (98-107); Estimated CRCL calculation 52 ml/min; Estimated Glomerular Filt Rate > 60; Glucose 129 mg/dL (65-110); Magnesium 2.2 mg/dL (1.6-2.3); Potassium 3.7 mmol/L (3.4-5.0); Sodium 136 mmol/L (137-145)
[2022-03-09] MEDS: DEXTROSE 5%/0.45% SOD CHL 1,000 ML 75 ML IV CONT (08:26)
[2022-03-09] MEDS: FAMOTIDINE 20 MG/2 ML VIAL IV PUSH ×2 (09:11→21:39)
[2022-03-09 09:12] LABS: Band Neutrophils Percent 29 % (0-6); Lymphocytes Absolute Manual 0.48 K/mm3 (1.1-4.5); Metamyelocytes Percent 1 %; Monocytes Absolute Manual 0.92 K/mm3 (0.1-0.90); Monocytes Percent Manual 25 % (3-9); Neutrophils Absolute Manual 2.25 K/mm3 (1.3-6.7); Neutrophils Percent Manual 32 % (46-73); Total Cells Counted 100
[2022-03-09 09:13] LABS: Hypochromasia 1+ (NORMAL); Platelet Estimate Increased (Adequate)
--- NOTE | 2022-03-09 09:15 | PM.IMPN ---
Progress Note: A&P Assessment and Plan (1) Small bowel obstruction: Code(s): K56.609 - Unspecified intestinal obstruction, unspecified as to partial versus complete obstruction Status: Acute Assessment and Plan: abd xray from 03/09/22 shows dilated small bowel with air and fluid consistent with obstruction Abd/Pel CT Distal small bowel obstruction with a transition point in the mid lower abdomen, possibly secondary to adhesion. General Surgery consulted NPO NG to low intermittent suction, looks about 800ml of brown fluid IV fluids continue at this time Daily intake and output (2) Throat pain: Code(s): R07.0 - Pain in throat Status: Acute Assessment and Plan: Secondary to NG tube Cepacol and Chloraseptic spray ordered for added comfort Pain medication also on board if it is severe. (3) Ischemic cardiomyopathy: Code(s): I25.5 - Ischemic cardiomyopathy Status: Acute Assessment and Plan: Appears compensated Continue to monitor Echo echo from 12/31/21 systolic function 45-50% with moderate hypokinesis of the mid and basal anterolateral gonzáles with mild hypokinesis of the basal inferior wall (4) Systolic CHF: Code(s): I50.20 - Unspecified systolic (congestive) heart failure Status: Acute Assessment and Plan: Patient appears euvolemic Continue to monitor Echo shows a chronic systolic heart failure Trend daily weights Does not appear to be in acute exacerbation (5) LIBRADO (obstructive sleep apnea): Code(s): G47.33 - Obstructive sleep apnea (adult) (pediatric) Status: Acute Assessment and Plan: CPAP at nighttime (6) GERD (gastroesophageal reflux disease): Code(s): K21.9 - Gastro-esophageal reflux disease without esophagitis Status: Acute Assessment and Plan: Continue PPI (7) Chronic pain: Code(s): G89.29 - Other chronic pain Status: Acute Assessment and Plan: Continue pain management Trend pain scores Adjust therapy as indicated (8) Tobacco abuse: Code(s): Z72.0 - Tobacco use Status: Acute Assessment and Plan: Nicotine patch as needed (9) Prostate CA: Code(s): C61 - Malignant neoplasm of prostate Status: Acute Assessment and Plan: Follow-up in outpatient setting Time Spent With Patient Time with patient: Greater than 35 minutes Subjective Date/time seen: 03/09/22914 Interval history: 06/06/22 0915 Patient seems to be doing okay today. He is still complaining of throat and nose pain from the NG tube. He does state that he has a little nauseous and does have a little bit of abdominal pain however when you ask what is abdominal pain he says more on his side especially on the right. He denies any falls or syncope lately. He also denies any activity especially walking around the room. He is going to go for a small-bowel follow-through today. He denies any chest pain, shortness of breath, weakness or fatigue. 03/08/22 1100 Patient was lying in bed. Patient stated that he is still having a little abdominal pain especially when he eats ice chips. He denies any nausea however his biggest complaint is throat pain. He stated from the tube which makes sense. Patient also complained of being short of breath however he said he is always short of breath. He denies any chest pain. It was noted that the patient's troponin was 15.5 however a repeat troponin was drawn and it was 0.023. EKG does show sinus rhythm. Seems to be more lab error issue. 03/08/22? 01:32 This is a 66-year-old male with past medical history significant for coronary artery disease, stroke, chronic narcotic dependence, dysphagia, gastroesophageal reflux disease, obstructive sleep apnea, prostate cancer, tobacco dependence.? Patient comes as a transfer from outside h
--- NOTE | 2022-03-09 09:15 | P.PNIM_ITS ---
Progress Note: A&P Assessment and Plan (1) Small bowel obstruction: Code(s): K56.609 - Unspecified intestinal obstruction, unspecified as to partial versus complete obstruction Status: Acute Assessment and Plan: * abd xray from 03/09/22 shows dilated small bowel with air and fluid consistent with obstruction * Abd/Pel CT Distal small bowel obstruction with a transition point in the mid lower abdomen, possibly secondary to adhesion. * General Surgery consulted * NPO * NG to low intermittent suction, looks about 800ml of brown fluid * IV fluids continue at this time * Daily intake and output (2) Throat pain: Code(s): R07.0 - Pain in throat Status: Acute Assessment and Plan: * Secondary to NG tube * Cepacol and Chloraseptic spray ordered for added comfort * Pain medication also on board if it is severe. (3) Ischemic cardiomyopathy: Code(s): I25.5 - Ischemic cardiomyopathy Status: Acute Assessment and Plan: * Appears compensated * Continue to monitor * Echo echo from 12/31/21 systolic function 45-50% with moderate hypokinesis of the mid and basal anterolateral gonzáles with mild hypokinesis of the basal inferior wall (4) Systolic CHF: Code(s): I50.20 - Unspecified systolic (congestive) heart failure Status: Acute Assessment and Plan: * Patient appears euvolemic * Continue to monitor * Echo shows a chronic systolic heart failure * Trend daily weights * Does not appear to be in acute exacerbation (5) LIBRADO (obstructive sleep apnea): Code(s): G47.33 - Obstructive sleep apnea (adult) (pediatric) Status: Acute Assessment and Plan: * CPAP at nighttime (6) GERD (gastroesophageal reflux disease): Code(s): K21.9 - Gastro-esophageal reflux disease without esophagitis Status: Acute Assessment and Plan: * Continue PPI (7) Chronic pain: Code(s): G89.29 - Other chronic pain Status: Acute Assessment and Plan: * Continue pain management * Trend pain scores * Adjust therapy as indicated (8) Tobacco abuse: Code(s): Z72.0 - Tobacco use Status: Acute Assessment and Plan: * Nicotine patch as needed (9) Prostate CA: Code(s): C61 - Malignant neoplasm of prostate Status: Acute Assessment and Plan: * Follow-up in outpatient setting Time Spent With Patient Time with patient: Greater than 35 minutes Subjective Date/time seen: 03/09/22914 Interval history: 03/09/22914 Patient seems to be doing okay today. He is still complaining of throat and nose pain from the NG tube. He does state that he has a little nauseous and does have a little bit of abdominal pain however when you ask what is abdominal pain he says more on his side especially on the right. He denies any falls or syncope lately. He also denies any activity especially walking around the room. He is going to go for a small-bowel follow-through today. He denies any chest pain, shortness of breath, weakness or fatigue. 03/08/22 1100 Patient was lying in bed. Patient stated that he is still having a little abdominal pain especially when he eats ice chips. He denies any nausea however his biggest complaint is throat pain. He stated from the tube which makes
[2022-03-09 10:02] LABS: Appearance Urine Slightly Cloudy (Clear); Bilirubin Urine Negative (Negative); Blood Urine Negative (Negative); Color Urine Yellow (Yellow); Glucose Urine UA Negative (Negative); Ketones Urine Negative (Negative); Leukocyte Esterase Ur Negative LEU/UL (Negative); Nitrate Urine Negative (Negative); Protein Urine Trace mg/dL (Negative); Specific Grav Ur >= 1.030 (1.001-1.035); Urobilinogen Urine 0.2 mg/dL (<2.0); pH Urine 5.5 (5.0-9.0)
[2022-03-09 10:13] LABS: Bacteria Urine Trace /hpf; Mucus Urine Rare /lpf; Uric Acid Crystals Urine Present /hpf; WBC Urine 0-3 /hpf
[2022-03-09 10:16] LABS: Add Urine Microscopic? YES
[2022-03-09 14:00] VITALS: BP 92/57; PULSE 106; RESP 20; TEMP 36.8; O2SAT 97
--- NOTE | 2022-03-09 14:17 | PM.PNGS ---
Progress Note: A&P Assessment and Plan (1) Small bowel obstruction: Code(s): K56.609 - Unspecified intestinal obstruction, unspecified as to partial versus complete obstruction Status: Acute Assessment and Plan: SBFT ordered this morning and pending. If there is no obstruction, then we will plan to remove his NG tube and start clear liquids. The patient is a very high risk surgical candidate given his multiple co-morbidities, antiplatelet therapy, and history of prostate cancer treated with radiation. Will await SBFT results. Continue NG tube, NPO, and IV fluids. (2) Smoker: Code(s): F17.200 - Nicotine dependence, unspecified, uncomplicated Status: Acute (3) GERD (gastroesophageal reflux disease): Code(s): K21.9 - Gastro-esophageal reflux disease without esophagitis Status: Acute Assessment and Plan: IV Pepcid (4) Chronic pain: Code(s): G89.29 - Other chronic pain Status: Acute (5) Ischemic cardiomyopathy: Code(s): I25.5 - Ischemic cardiomyopathy Status: Acute Assessment and Plan: Consider Cardiology consult for pre-operative cardiac risk assessment if the patient needs surgical exploration. (6) Prostate CA: Code(s): C61 - Malignant neoplasm of prostate Status: Acute Assessment and Plan: S/p radiation treatment. (7) Constipation: Code(s): K59.00 - Constipation, unspecified Status: Acute Assessment and Plan: SBFT pending. The Gastrografin would help stimulate his bowels if he is mostly dealing with constipation. (8) Systolic CHF: Code(s): I50.20 - Unspecified systolic (congestive) heart failure Status: Acute (9) LIBRADO (obstructive sleep apnea): Code(s): G47.33 - Obstructive sleep apnea (adult) (pediatric) Status: Acute Assessment and Plan: Management per Hospitalist. (10) Chronic narcotic use: Code(s): F11.90 - Opioid use, unspecified, uncomplicated Status: Acute (11) History of coronary artery stent placement: Code(s): Z95.5 - Presence of coronary angioplasty implant and graft Status: Acute Assessment and Plan: Plavix on hold. Will need to have platelets available at the time of surgery if patient requires urgent surgery for small bowel obstruction. Additional Plan I have discussed the patient's case and plan of care with Dr. Kidd. Subjective Subjective Date/Time Seen: 03/09/22 14:17 Patient reports: pain is less, no flatus, no bowel movement and nausea Interval history: This is a 66 yo M with multiple medical issues who was admitted for a small bowel obstruction. He had an NG tube placed, is NPO, and on the medical floor. Chart reviewed. Patient seen and examined. He denies abdominal pain. Reports nausea, but no vomiting. Also reports sore throat. He is actually taking the IV Dilaudid for throat pain, not abdominal pain. No other complaints at this time. Review of Systems Review of Systems: All systems reviewed & are unremarkable except as noted in HPI and below Exam Const: General: no acute distress and awake Orientation/consciousness: patient oriented x3 GI: Inspection: other (mildly distended) GI Palp: Yes Soft to palpation, Yes Tenderness to palpation present (GI) (diffusely tender), No Guarding due to palpation present (GI) and No Rebound tenderness present Auscultation: Hypoactive bowel sounds present Neuro: General: moves all extremities and no focal motor deficits Extrem: General: no calf tenderness and no edema Psych: Insight: Fair insight present (Psych) Judgement: Fair judgement present (Psych) Objective Data Vital Signs Vital Signs: Vital Signs - 24 hr 03/08/22 21:35 03/09/22 05:42 03/09/22 08:00 Temperature 97.9 F 97.1 F L Pulse Rate 78 95 Respiratory Rate 20 16 Blood Pressure 96/54 L 106/69 Pulse Oximetry 98 98 Oxygen Delivery Room Air Intake/Output Intake/Output: I
[2022-03-09 15:01] VITALS: BMI 18.3
[2022-03-09] MEDS: DEXTROSE 5%/0.9% SOD CHL 1,000 ML 110 ML IV CONT (18:40)
[2022-03-09 22:00] VITALS: BP 113/82; PULSE 108; RESP 16; TEMP 36.7; O2SAT 94
[2022-03-10 05:04] VITALS: BP 98/58; PULSE 90; RESP 16; TEMP 36.5; O2SAT 95
[2022-03-10 06:24] LABS: Basophils Percent Auto 0.4 % (0.2-1.2); Eosinophils Absolute Auto 0.1 K/mm3 (0-0.3); Eosinophils Percent Auto 2.9 % (0-4.4); Hematocrit 37.3 % (42.0-52.0); Hemoglobin 11.7 g/dL (14.0-18.0); Immature Granulocyte Absolute 0.01 K/mm3 (0.00-0.031); Immature Granulocyte Percent A 0.2 % (0-0.5); Lymphocytes Absolute Auto 0.55 K/mm3 (0.9-3.2); Lymphocytes Percent Auto 12.4 % (18.3-44.2); Mean Corpuscular HGB Conc 31.4 g/dl (32-36); Mean Corpuscular Hemoglobin 29.6 pg (26-34); Mean Corpuscular Volume 94.4 fl (80-100); Mean Platelet Volume 9.5 fl (7.4-10.4); Monocytes Absolute Auto 0.7 K/mm3 (0.1-0.6); Monocytes Percent Auto 16.6 % (2.6-8.5); Neutrophils Percent Auto 67.5 % (45.5-73.1); Platelet Count Result 385 k/mm3 (150-375); Red Blood Count 3.95 M/mm3 (4.6-6.20); Red Cell Distribution Width 14.5 % (11.5-14.5); White Blood Count 4.5 K/mm3 (4.5-10.0)
[2022-03-10 06:47] LABS: Alanine Aminotransferase 10 U/L (6-50); Albumin Level 3.8 g/dL (3.5-5.1); Alkaline Phosphatase 97 U/L (38-126); Anion Gap 6 mmol/L (8-16); Aspartate Amino Transferase 20 U/L (17-59); Bilirubin,Total 0.5 mg/dL (0.2-1.3); Blood Urea Nitrogen 39 mg/dL (9-20); Calcium 7.8 mg/dL (8.4-10.2); Carbon Dioxide 34 mmol/L (22-30); Chloride 97 mmol/L (98-107); Estimated CRCL calculation 48 ml/min; Estimated Glomerular Filt Rate > 60; Glucose 128 mg/dL (65-110); Magnesium 2.2 mg/dL (1.6-2.3); Potassium 3.2 mmol/L (3.4-5.0); Sodium 137 mmol/L (137-145)
[2022-03-10 07:43] LABS: Platelet Estimate Adequate (Adequate)
[2022-03-10 07:44] LABS: Crenated RBC 1+ (NORMAL)
[2022-03-10 08:00] VITALS: O2SAT 96
--- NOTE | 2022-03-10 08:30 | PM.IMPN ---
Progress Note: A&P Assessment and Plan (1) Small bowel obstruction: Code(s): K56.609 - Unspecified intestinal obstruction, unspecified as to partial versus complete obstruction Status: Acute Assessment and Plan: abd xray from 03/10/22 shows dilated small bowel loops ?consistent with partial obstruction. Abd/Pel CT Distal small bowel obstruction with a transition point in the mid lower abdomen, possibly secondary to adhesion. General Surgery consulted advanced to clear liquids diet per general surgery NG removed IV fluids continue at this time, can be DC'd if patient is able to maintain hydration Daily intake and output Obstructive series indicates bowel obstruction 03/09/22 (2) Throat pain: Code(s): R07.0 - Pain in throat Status: Acute Assessment and Plan: Resolved since NG tube has been removed Secondary to NG tube Cepacol and Chloraseptic spray ordered for added comfort Pain medication also on board if it is severe. (3) Ischemic cardiomyopathy: Code(s): I25.5 - Ischemic cardiomyopathy Status: Acute Assessment and Plan: Appears compensated Continue to monitor Echo echo from 12/31/21 systolic function 45-50% with moderate hypokinesis of the mid and basal anterolateral gonzáles with mild hypokinesis of the basal inferior wall (4) Systolic CHF: Code(s): I50.20 - Unspecified systolic (congestive) heart failure Status: Acute Assessment and Plan: Patient appears euvolemic Continue to monitor Echo shows a chronic systolic heart failure Trend daily weights Does not appear to be in acute exacerbation (5) LIBRADO (obstructive sleep apnea): Code(s): G47.33 - Obstructive sleep apnea (adult) (pediatric) Status: Acute Assessment and Plan: CPAP at nighttime (6) GERD (gastroesophageal reflux disease): Code(s): K21.9 - Gastro-esophageal reflux disease without esophagitis Status: Acute Assessment and Plan: Continue PPI (7) Chronic pain: Code(s): G89.29 - Other chronic pain Status: Acute Assessment and Plan: Continue pain management Home medication restarted IV pain medication DC'D Trend pain scores Adjust therapy as indicated (8) Tobacco abuse: Code(s): Z72.0 - Tobacco use Status: Acute Assessment and Plan: Nicotine patch as needed (9) Prostate CA: Code(s): C61 - Malignant neoplasm of prostate Status: Acute Assessment and Plan: Follow-up in outpatient setting Time Spent With Patient Time with patient: Greater than 35 minutes Subjective Date/time seen: 03/10/22 08:30 Interval history: 03/10/22 0830 Patient was lying on his side stating that he had no pain however he was very thirsty wanted some water. NG tube was out as of yesterday. He denies any chest pain, shortness of breath, nausea, vomiting, diarrhea, constipation, weakness or fatigue. Talked to Dr. Kidd who is starting the patient on clear liquids. Patient did have positive bowel sounds in all 4 quadrant. Aspirin and Plavix have also been restarted along with patient's home medicines. Is also reported patient had 4 large bowel movements yesterday and it seems as if the bowel obstruction has resolved. 03/09/22 0915 Patient seems to be doing okay today. He is still complaining of throat and nose pain from the NG tube. He does state that he has a little nauseous and does have a little bit of abdominal pain however when you ask what is abdominal pain he says more on his side especially on the right. He denies any falls or syncope lately. He also denies any activity especially walking around the room. He is going to go for a small-bowel follow-through today. He denies any chest pain, shortness of breath, weakness or fatigue. 03/08/22 1100 Patient was lying in bed. Patient
--- NOTE | 2022-03-10 08:30 | P.PNIM_ITS ---
Progress Note: A&P Assessment and Plan (1) Small bowel obstruction: Code(s): K56.609 - Unspecified intestinal obstruction, unspecified as to partial versus complete obstruction Status: Acute Assessment and Plan: * abd xray from 03/10/22 shows dilated small bowel loops ?consistent with partial obstruction. * Abd/Pel CT Distal small bowel obstruction with a transition point in the mid lower abdomen, possibly secondary to adhesion. * General Surgery consulted * advanced to clear liquids * diet per general surgery * NG removed * IV fluids continue at this time, can be DC'd if patient is able to maintain hydration * Daily intake and output * Obstructive series indicates bowel obstruction 03/09/22 (2) Throat pain: Code(s): R07.0 - Pain in throat Status: Acute Assessment and Plan: * Resolved since NG tube has been removed * Secondary to NG tube * Cepacol and Chloraseptic spray ordered for added comfort * Pain medication also on board if it is severe. (3) Ischemic cardiomyopathy: Code(s): I25.5 - Ischemic cardiomyopathy Status: Acute Assessment and Plan: * Appears compensated * Continue to monitor * Echo echo from 12/31/21 systolic function 45-50% with moderate hypokinesis of the mid and basal anterolateral gonzáles with mild hypokinesis of the basal inferior wall (4) Systolic CHF: Code(s): I50.20 - Unspecified systolic (congestive) heart failure Status: Acute Assessment and Plan: * Patient appears euvolemic * Continue to monitor * Echo shows a chronic systolic heart failure * Trend daily weights * Does not appear to be in acute exacerbation (5) LIBRADO (obstructive sleep apnea): Code(s): G47.33 - Obstructive sleep apnea (adult) (pediatric) Status: Acute Assessment and Plan: * CPAP at nighttime (6) GERD (gastroesophageal reflux disease): Code(s): K21.9 - Gastro-esophageal reflux disease without esophagitis Status: Acute Assessment and Plan: * Continue PPI (7) Chronic pain: Code(s): G89.29 - Other chronic pain Status: Acute Assessment and Plan: * Continue pain management * Home medication restarted * IV pain medication DC'D * Trend pain scores * Adjust therapy as indicated (8) Tobacco abuse: Code(s): Z72.0 - Tobacco use Status: Acute Assessment and Plan: * Nicotine patch as needed (9) Prostate CA: Code(s): C61 - Malignant neoplasm of prostate Status: Acute Assessment and Plan: * Follow-up in outpatient setting Time Spent With Patient Time with patient: Greater than 35 minutes Subjective Date/time seen: 03/10/22 08:30 Interval history: 03/10/22829 Patient was lying on his side stating that he had no pain however he was very thirsty wanted some water. NG tube was out as of yesterday. He denies any chest pain, shortness of breath, nausea, vomiting, diarrhea, constipation, weakness or fatigue. Talked to Dr. Kidd who is starting the patient on clear liquids. Patient did have positive bowel sounds in all 4 quadrant. Aspirin and Plavix have also been restarted along with patient's home medicines. Is also reported patient had 4 large bowel movements yesterday and it seems as if the bowel obstruction
[2022-03-10] MEDS: ATORVASTATIN 40 MG TABLET 80 MG PO (11:24)
[2022-03-10] MEDS: ENOXAPARIN 40 MG/0.4 ML SYRINGE SUB-Q (11:24)
[2022-03-10] MEDS: FAMOTIDINE 20 MG/2 ML VIAL IV PUSH ×2 (11:25→20:46)
[2022-03-10] MEDS: VENLAFAXINE HCL XR 37.5 MG CAP PO (11:25)
[2022-03-10] MEDS: CIPROFLOXACIN HCL 0.3% OP SOLN 2.5 ML BTL 2 DROP EACH EYE (11:25)
[2022-03-10] MEDS: CLOPIDOGREL BISULFATE 75 MG TABLET PO (11:25)
[2022-03-10] MEDS: DEXTROSE 5%/0.9% SOD CHL 1,000 ML 110 ML IV CONT (12:56)
[2022-03-10] MEDS: PREGABALIN (*CRX) 75 MG CAPSULE 150 MG PO ×3 (12:56→20:46)
[2022-03-10 14:00] VITALS: BP 91/55; PULSE 114; RESP 18; TEMP 36.6; O2SAT 98
--- NOTE | 2022-03-10 17:39 | PM.PNGS ---
Progress Note: A&P Assessment and Plan (1) Small bowel obstruction: Code(s): K56.609 - Unspecified intestinal obstruction, unspecified as to partial versus complete obstruction Status: Acute Assessment and Plan: I reviewed the patient's follow-up obstructive series from this morning with Dr. Levi in Radiology. There is dye in the colon however it took 9 hours for it to get to the colon yesterday during the small-bowel follow-through study. He suspects that there is something related to an adhesion from previous inflammation either from the patient's radiation therapy, his previous cancers, undiagnosed episode of diverticulitis in the past, or perhaps ileus related to his chronic narcotic use. However, the patient has a fairly soft abdomen and is not having abdominal pain. In fact his abdominal pain resolved upon placement of the NG tube when he 1st arrived at this hospital from [place]. I therefore explained to the patient that an aggressive approach would be to go ahead and take him to the operating room & laparoscopically explore and be sure there is not something causing a relative blockage in the mid to distal small bowel. However, patient is at increased risk for heart attack, stroke, or other complication in view of his other medical problems and recent cardiac catheterization with stenting. Since the SBFT dye did get through to the colon and he has had stools today I think another approach could be to very slowly let him resume a diet and see if this recurs on him while he is in the hospital. For now I would have him stick to clear liquids for 24 hours and he was accepting of this latter plan. We will go ahead and resume his anti-platelet therapy today while he is taking clear liquids if he tolerates it. ( Discussed with Rusty his hospitalist) (2) Smoker: Code(s): F17.200 - Nicotine dependence, unspecified, uncomplicated Status: Acute (3) GERD (gastroesophageal reflux disease): Code(s): K21.9 - Gastro-esophageal reflux disease without esophagitis Status: Acute Assessment and Plan: IV Pepcid (4) Chronic pain: Code(s): G89.29 - Other chronic pain Status: Acute (5) Ischemic cardiomyopathy: Code(s): I25.5 - Ischemic cardiomyopathy Status: Acute Assessment and Plan: Consider Cardiology consult for pre-operative cardiac risk assessment if the patient needs surgical exploration. (6) Prostate CA: Code(s): C61 - Malignant neoplasm of prostate Status: Acute Assessment and Plan: S/p radiation treatment. (7) Constipation: Code(s): K59.00 - Constipation, unspecified Status: Acute Assessment and Plan: SBFT pending. The Gastrografin would help stimulate his bowels if he is mostly dealing with constipation. (8) Systolic CHF: Code(s): I50.20 - Unspecified systolic (congestive) heart failure Status: Acute (9) LIBRADO (obstructive sleep apnea): Code(s): G47.33 - Obstructive sleep apnea (adult) (pediatric) Status: Acute Assessment and Plan: Management per Hospitalist. (10) Chronic narcotic use: Code(s): F11.90 - Opioid use, unspecified, uncomplicated Status: Acute (11) History of coronary artery stent placement: Code(s): Z95.5 - Presence of coronary angioplasty implant and graft Status: Acute Assessment and Plan: Plavix will be restarted today while patient trying clear liquids. Will need to have platelets available at the time of any surgery if patient requires urgent surgery for small bowel obstruction. (trying to avoid this at this time). Additional Plan I have discussed the patient's case and plan of care with Rusty his current hospitalist. Subjective Subjective Date/Time Seen: 03/10/22 10:39 Patient seen early this morning and then x-ray reviewed with Dr. Vishnu delgado in Radiology. Discussed patient's situation with patient and Rusty is hospitalist. Dirk
[2022-03-10] MEDS: HYDROcodone/acetaminophen (*CRX) 10-325 MG TABLET 1 TAB PO (18:12)
[2022-03-10] MEDS: LUBIPROSTONE 8 MCG CAPSULE 24 MCG PO (18:13)
[2022-03-10 20:00] VITALS: PULSE 114; RESP 18; O2SAT 98
[2022-03-10 21:40] VITALS: BP 105/63; PULSE 75; RESP 16; TEMP 36.5; O2SAT 100
[2022-03-11] MEDS: DEXTROSE 5%/0.9% SOD CHL 1,000 ML 110 ML IV CONT ×2 (00:31→08:34)
[2022-03-11 05:26] VITALS: BP 97/57; PULSE 98; RESP 16; TEMP 36.4; O2SAT 98
[2022-03-11 06:02] LABS: Basophils Percent Auto 0.6 % (0.2-1.2); Eosinophils Absolute Auto 0.2 K/mm3 (0-0.3); Eosinophils Percent Auto 5.5 % (0-4.4); Hematocrit 31.9 % (42.0-52.0); Hemoglobin 9.9 g/dL (14.0-18.0); Immature Granulocyte Absolute 0.01 K/mm3 (0.00-0.031); Immature Granulocyte Percent A 0.3 % (0-0.5); Lymphocytes Absolute Auto 0.67 K/mm3 (0.9-3.2); Lymphocytes Percent Auto 18.6 % (18.3-44.2); Mean Corpuscular Hemoglobin 29.5 pg (26-34); Mean Corpuscular Volume 94.9 fl (80-100); Mean Platelet Volume 9.7 fl (7.4-10.4); Monocytes Absolute Auto 0.6 K/mm3 (0.1-0.6); Monocytes Percent Auto 17.2 % (2.6-8.5); Neutrophils Absolute Auto 2.1 K/mm3 (1.3-6.7); Neutrophils Percent Auto 57.8 % (45.5-73.1); Platelet Count Result 327 k/mm3 (150-375); Red Blood Count 3.36 M/mm3 (4.6-6.20); Red Cell Distribution Width 14.3 % (11.5-14.5); White Blood Count 3.6 K/mm3 (4.5-10.0)
[2022-03-11] MEDS: HYDROcodone/acetaminophen (*CRX) 10-325 MG TABLET 1 TAB PO ×4 (06:05→20:29)
[2022-03-11 06:29] LABS: Alanine Aminotransferase 8 U/L (6-50); Alkaline Phosphatase 82 U/L (38-126); Anion Gap 3 mmol/L (8-16); Aspartate Amino Transferase 18 U/L (17-59); Bilirubin,Total 0.4 mg/dL (0.2-1.3); Blood Urea Nitrogen 21 mg/dL (9-20); Calcium 7.1 mg/dL (8.4-10.2); Carbon Dioxide 31 mmol/L (22-30); Chloride 102 mmol/L (98-107); Estimated CRCL calculation 63 ml/min; Estimated Glomerular Filt Rate > 60; Glucose 112 mg/dL (65-110); Potassium 2.7 mmol/L (3.4-5.0); Sodium 136 mmol/L (137-145)
[2022-03-11] MEDS: POTASSIUM CHLORIDE 20 MEQ TABLET 80 MEQ PO (06:45)
[2022-03-11 08:00] VITALS: PULSE 98; RESP 16; O2SAT 98
[2022-03-11] MEDS: VENLAFAXINE HCL XR 37.5 MG CAP PO (08:35)
[2022-03-11] MEDS: ATORVASTATIN 40 MG TABLET 80 MG PO (08:35)
[2022-03-11] MEDS: FAMOTIDINE 20 MG/2 ML VIAL IV PUSH ×2 (08:36→20:22)
[2022-03-11] MEDS: ASPIRIN 81 MG CHEWABLE TABLET PO (08:36)
[2022-03-11] MEDS: CLOPIDOGREL BISULFATE 75 MG TABLET PO (08:36)
[2022-03-11] MEDS: LUBIPROSTONE 8 MCG CAPSULE 24 MCG PO (08:37)
[2022-03-11] MEDS: PREGABALIN (*CRX) 75 MG CAPSULE 150 MG PO ×4 (08:39→20:22)
--- NOTE | 2022-03-11 09:53 | PM.PNGS ---
Progress Note: A&P Assessment and Plan (1) Small bowel obstruction: Code(s): K56.609 - Unspecified intestinal obstruction, unspecified as to partial versus complete obstruction Status: Acute Assessment and Plan: Initial imaging suggested small bowel obstruction. It is unclear if this is a small bowel obstruction related to adhesions from previous inflammation or radiation therapy from his prostate cancer, versus an ileus. SBFT on 03/09 showed contrast in the distal nondilated small bowel at 9.5 hours, but had not reached the colon. Yesterday's plain films showed oral contrast in the colon and he began moving his bowels. He is tolerating clear liquids, but does feel nauseous this morning. This could be related to medications or persistent obstruction versus ileus. Obstructive series this morning was reviewed and showed dilated small bowel and some residual oral contrast in the colon, but some contrast has moved through in comparison to yesterday's x-rays. When reviewing the imaging, his stomach also appears to be distended, which could be why he is nauseated. Will keep him on clear liquids for now and re-evaluate later today. May be able to advance his diet to full liquids later today if this improves. Will give a dulcolax suppository this morning. Hospitalist started him on Amitiza BID. If he seems to be having nausea associated with this medication over the next few doses, then we may need to stop this. Will repeat an obstructive series in am. The patient is still a very high risk surgical candidate given his multiple medical problems and recent cardiac stenting, and we will take it very slowly in advancing his diet and try to avoid surgery if possible. (2) Smoker: Code(s): F17.200 - Nicotine dependence, unspecified, uncomplicated Status: Acute (3) GERD (gastroesophageal reflux disease): Code(s): K21.9 - Gastro-esophageal reflux disease without esophagitis Status: Acute Assessment and Plan: IV Pepcid (4) Chronic pain: Code(s): G89.29 - Other chronic pain Status: Acute (5) Ischemic cardiomyopathy: Code(s): I25.5 - Ischemic cardiomyopathy Status: Acute Assessment and Plan: Consider Cardiology consult for pre-operative cardiac risk assessment if the patient needs surgical exploration. (6) Prostate CA: Code(s): C61 - Malignant neoplasm of prostate Status: Acute Assessment and Plan: S/p radiation treatment. (7) Systolic CHF: Code(s): I50.20 - Unspecified systolic (congestive) heart failure Status: Acute (8) LIBRADO (obstructive sleep apnea): Code(s): G47.33 - Obstructive sleep apnea (adult) (pediatric) Status: Acute Assessment and Plan: Management per Hospitalist. (9) Chronic narcotic use: Code(s): F11.90 - Opioid use, unspecified, uncomplicated Status: Acute (10) History of coronary artery stent placement: Code(s): Z95.5 - Presence of coronary angioplasty implant and graft Status: Acute Assessment and Plan: Plavix restarted yesterday. Additional Plan I have discussed the patient's case and plan of care with Dr. Kidd. Subjective Subjective Date/Time Seen: 03/11/22 09:53 Patient reports: flatus, bowel movement and afebrile Interval history: Patient seen and examined. He reports tolerating clear liquids well yesterday without any issues. He states that after drinking coffee for breakfast, he is having some nausea but no vomiting. He feels the nausea is related to coffee because he never drinks this typically. To note, he did also get started on Amitiza and took 80 meq KCL orally this morning as well. He reports flatus. He had 6 documented BMs yesterday, and cannot recall if he had any more overnight last night. No other complaints at this time. Review of Systems Review of Systems: All systems reviewed & are unremarkable except as noted in HPI and below Exam Const:
[2022-03-11] MEDS: ONDANSETRON INJ 4 MG/2 ML VIAL IV PUSH (09:56)
[2022-03-11 12:25] LABS: Anion Gap 3 mmol/L (8-16); Blood Urea Nitrogen 18 mg/dL (9-20); Calcium 7.6 mg/dL (8.4-10.2); Carbon Dioxide 32 mmol/L (22-30); Chloride 102 mmol/L (98-107); Estimated CRCL calculation 63 ml/min; Estimated Glomerular Filt Rate > 60; Glucose 100 mg/dL (65-110); Potassium 3.8 mmol/L (3.4-5.0); Sodium 137 mmol/L (137-145)
--- NOTE | 2022-03-11 13:52 | PCNSR ---
On 03/11/22, the student, Rohan Abad, provided care and completed [facility] documentation on this patient. I have reviewed the student's documentation and agree with the findings.
[2022-03-11 14:00] VITALS: BP 116/81; PULSE 66; RESP 16; TEMP 36.6; O2SAT 98
--- NOTE | 2022-03-11 14:48 | PM.IMPN ---
Progress Note: A&P Assessment and Plan (1) Small bowel obstruction: Code(s): K56.609 - Unspecified intestinal obstruction, unspecified as to partial versus complete obstruction Status: Acute Assessment and Plan: Abdominal x-ray showed dilated small bowel loops consistent with partial obstruction. CT of the abdomen/pelvis showed transition point in the mid lower abdomen Appreciate general surgery consultation Unclear if this is related to adhesion purse radiation therapy from prostate cancer vs ileus Small-bowel follow-through showed nondilated small bowel with contrast reaching the small bowel in 9.5 hours, did not reach the colon NG tube was removed on 03/09/22 Continue with clear liquid diet Monitor intake output Dulcolax suppository this evening per surgery recommendations Will discontinue IV fluids as patient is tolerating oral intake (2) Systolic CHF: Code(s): I50.20 - Unspecified systolic (congestive) heart failure Status: Acute Assessment and Plan: No acute issues. Patient is clinically compensated Continue to monitor volume status Echo from 12/31/21 showed systolic function 45-50% with moderate hypokinesis of the mid and basal anterolateral gonzáles with mild hypokinesis of the basal inferior wall (3) LIBRADO (obstructive sleep apnea): Code(s): G47.33 - Obstructive sleep apnea (adult) (pediatric) Status: Acute Assessment and Plan: No issues CPAP titrated to home settings (4) Tobacco abuse: Code(s): Z72.0 - Tobacco use Status: Acute Assessment and Plan: Patient smokes 6 cigarettes per day Initiate 7 mg nicotine patch Educated on smoking cessation, however patient is not motivated to quit smoking at this time (5) Prostate CA: Code(s): C61 - Malignant neoplasm of prostate Status: Acute Assessment and Plan: Chronic, treated with radiation therapy I Continue with outpatient follow-up (6) Acute hypokalemia: Code(s): E87.6 - Hypokalemia Status: Acute Assessment and Plan: Potassium was 2.7 this morning Normalized following 80 mEq KCL supplementation Magnesium within normal limits Monitor BMP and supplemented as needed (7) Ischemic cardiomyopathy: Code(s): I25.5 - Ischemic cardiomyopathy Status: Acute Assessment and Plan: Patient with recent STEMI Continue aspirin and Plavix Continue statin Subjective Date/time seen: 03/11/22 14:48 Interval history: Date of service: 03/11/2022 Iftikhar Jimenez is a 66-year-old male with a history of CAD, CVA, GERD, LIBRADO, pulmonary hypertension, systolic CHF, and tobacco abuse who is seen in follow-up for small bowel obstruction. He feels well today. He has no abdominal pain. He endorses nausea but he relates this to drinking coffee this morning which he does not normally drink. He states the caffeine has made him jittery and dizzy. He denies bloating. He had a formed bowel movement this morning. He is tolerating clear liquids. He denies dizziness, lightheadedness, weakness. He is ambulating without difficulty. He denies shortness of breath, cough, or chest pain. Review of Systems Review of Systems: All systems reviewed & are unremarkable except as noted in HPI and below Exam Narrative: General: Thin, well-appearing 66-year-old -male, sitting up in bed, comfortable, NARD Neuro: awake, alert and oriented x4, speech clear, no focal neuro deficits noted HEENMT: normocephalic, atraumatic, EOMI, sclerae anicteric Respiratory: clear to auscultation bilaterally, nonlabored breathing Cardio: regular rate, regular rhythm with S1-S2 Abdomen: Slightly protuberant, normoactive bowel sounds, soft, nontender to palpation Extremities: no edema, erythema, or tenderness to palpation, DP pulses 2+ bilaterally Skin: no rashes or lesions, warm and dry Psych: appropriate mood and affect, judgment and insight intact Objective Alden
[2022-03-11] MEDS: NICOTINE (*PBKC) 7 MG PATCH 1 PATCH TRANSDERM (15:37)
[2022-03-11 22:00] VITALS: BP 107/75; PULSE 63; RESP 18; TEMP 36.5; O2SAT 96
[2022-03-12 05:37] VITALS: BP 101/64; PULSE 72; RESP 18; TEMP 36.5; O2SAT 99
[2022-03-12 06:16] LABS: Basophils Percent Auto 0.7 % (0.2-1.2); Eosinophils Absolute Auto 0.2 K/mm3 (0-0.3); Eosinophils Percent Auto 3.8 % (0-4.4); Hematocrit 34.1 % (42.0-52.0); Hemoglobin 10.6 g/dL (14.0-18.0); Immature Granulocyte Absolute 0.03 K/mm3 (0.00-0.031); Immature Granulocyte Percent A 0.5 % (0-0.5); Lymphocytes Absolute Auto 0.96 K/mm3 (0.9-3.2); Mean Corpuscular HGB Conc 31.1 g/dl (32-36); Mean Corpuscular Hemoglobin 29.6 pg (26-34); Mean Corpuscular Volume 95.3 fl (80-100); Mean Platelet Volume 9.6 fl (7.4-10.4); Monocytes Absolute Auto 0.8 K/mm3 (0.1-0.6); Monocytes Percent Auto 12.7 % (2.6-8.5); Neutrophils Percent Auto 66.3 % (45.5-73.1); Platelet Count Result 341 k/mm3 (150-375); Red Blood Count 3.58 M/mm3 (4.6-6.20)
[2022-03-12 06:28] LABS: Anion Gap 2 mmol/L (8-16); Blood Urea Nitrogen 12 mg/dL (9-20); Calcium 7.6 mg/dL (8.4-10.2); Carbon Dioxide 30 mmol/L (22-30); Chloride 106 mmol/L (98-107); Estimated CRCL calculation 70 ml/min; Estimated Glomerular Filt Rate > 60; Glucose 79 mg/dL (65-110); Potassium 3.5 mmol/L (3.4-5.0); Sodium 138 mmol/L (137-145)
[2022-03-12] MEDS: HYDROcodone/acetaminophen (*CRX) 10-325 MG TABLET 1 TAB PO ×4 (06:55→20:14)
[2022-03-12] MEDS: NICOTINE (*PBKC) 7 MG PATCH 1 PATCH TRANSDERM (09:01)
[2022-03-12] MEDS: ATORVASTATIN 40 MG TABLET 80 MG PO (09:01)
[2022-03-12] MEDS: ASPIRIN 81 MG CHEWABLE TABLET PO (09:01)
[2022-03-12] MEDS: VENLAFAXINE HCL XR 37.5 MG CAP PO (09:02)
[2022-03-12] MEDS: FAMOTIDINE 20 MG/2 ML VIAL IV PUSH ×2 (09:02→20:14)
[2022-03-12] MEDS: CLOPIDOGREL BISULFATE 75 MG TABLET PO (09:02)
[2022-03-12 09:12] VITALS: RESP 18; O2SAT 98
[2022-03-12] MEDS: PREGABALIN (*CRX) 75 MG CAPSULE 150 MG PO ×4 (09:12→20:14)
[2022-03-12] MEDS: ONDANSETRON INJ 4 MG/2 ML VIAL IV PUSH (09:12)
--- NOTE | 2022-03-12 10:58 | PM.PNGS ---
Progress Note: A&P Assessment and Plan (1) Small bowel obstruction: Code(s): K56.609 - Unspecified intestinal obstruction, unspecified as to partial versus complete obstruction Status: Acute Assessment and Plan: Initial imaging suggested small bowel obstruction. It is unclear if this is a small bowel obstruction related to adhesions from previous inflammation or radiation therapy from his prostate cancer, versus an ileus. SBFT on 03/09 showed contrast in the distal nondilated small bowel at 9.5 hours, but had not reached the colon. the plain x-ray on 03/10 showed oral contrast in the colon and he began moving his bowels. He is tolerating clear liquids and now one meal of full liquids. Obstructive series morning of 03/11 was reviewed and showed dilated small bowel and some residual oral contrast in the colon, but some contrast has moved through in comparison to the previous x-rays. Plain films of the abdomen today reveals still a few diet loops of small bowel but plenty of gas in the colon and the patient does not feel as bad today as yesterday. Will keep him on Full liquids for now and re-evaluate later today. May be able to advance his diet to low-fiber later today or tomorrow a.m. if this improves. Hospitalist started him on Amitiza BID. If he seems to be having nausea associated with this medication over the next few doses, then we may need to stop this. The patient is still a very high risk surgical candidate given his multiple medical problems and recent cardiac stenting, recent pelvic radiation and we will take it very slowly in advancing his diet and try to avoid surgery if possible. he stated today he could not tolerate chocolate Ensure because stops him up therefore will have the dietitian talk to him again and showed him all the supplements that we have available. Will try to come up with a supplement that is low in fiber that he could take here and at home while he tries to get through this. (2) Smoker: Code(s): F17.200 - Nicotine dependence, unspecified, uncomplicated Status: Acute Assessment and Plan: Encouraged cessation. Patient now on a nicotine patch (3) GERD (gastroesophageal reflux disease): Code(s): K21.9 - Gastro-esophageal reflux disease without esophagitis Status: Acute Assessment and Plan: IV Pepcid on going in this could be changed to oral when he goes home (4) Chronic pain: Code(s): G89.29 - Other chronic pain Status: Acute Assessment and Plan: patient describes this as pain all all over and quotes Sir like body aches with the flu. He has seen a pain medicine doctor as an outpatient with him he will follow up once he leaves the hospital. He was on Relistor when he came in and probably will resume this when he goes home unless the hospitalist feel that Amitiza is a better choice for him. He states that he takes hydrocodone 4 times a day typically at home. (5) Ischemic cardiomyopathy: Code(s): I25.5 - Ischemic cardiomyopathy Status: Acute Assessment and Plan: Consider Cardiology consult for pre-operative cardiac risk assessment if the patient needs surgical exploration. (6) Prostate CA: Code(s): C61 - Malignant neoplasm of prostate Status: Acute Assessment and Plan: S/p radiation treatment. (7) Systolic CHF: Code(s): I50.20 - Unspecified systolic (congestive) heart failure Status: Acute (8) LIBRADO (obstructive sleep apnea): Code(s): G47.33 - Obstructive sleep apnea (adult) (pediatric) Status: Acute Assessment and Plan: Management per Hospitalist. (9) Chronic narcotic use: Code(s): F11.90 - Opioid use, unspecified, uncomplicated Status: Acute (10) History of coronary artery stent placement: Code(s): Z95.5 - Presence of coronary angioplasty implant and graft Status: Acute Assessment and Plan: Plavix restarted 03/10. S
[2022-03-12 14:00] VITALS: BP 103/65; PULSE 84; RESP 18; TEMP 36.1; O2SAT 100
--- NOTE | 2022-03-12 14:49 | PM.IMPN ---
Progress Note: A&P Assessment and Plan (1) Small bowel obstruction: Code(s): K56.609 - Unspecified intestinal obstruction, unspecified as to partial versus complete obstruction Status: Acute Assessment and Plan: Abdominal x-ray showed dilated small bowel loops consistent with partial obstruction. CT of the abdomen/pelvis showed transition point in the mid lower abdomen Appreciate general surgery consultation Unclear if this is related to adhesion vs radiation therapy from prostate cancer vs ileus Small-bowel follow-through on 03/09/22 showed nondilated small bowel with contrast reaching the small bowel in 9.5 hours, did not reach the colon NG tube was removed on 03/09/22 Advanced to full liquid diet. Tolerating well. Continue to advance diet per General Surgery recommendations Monitor intake and output Abdominal X-ray today showed interval improvement of dilated small bowel, consistent with SBO (2) Systolic CHF: Code(s): I50.20 - Unspecified systolic (congestive) heart failure Status: Acute Assessment and Plan: No acute issues. Patient is clinically compensated Continue to monitor volume status Echo from 12/31/21 showed systolic function 45-50% with moderate hypokinesis of the mid and basal anterolateral gonzáles with mild hypokinesis of the basal inferior wall (3) LIBRADO (obstructive sleep apnea): Code(s): G47.33 - Obstructive sleep apnea (adult) (pediatric) Status: Acute Assessment and Plan: No issues CPAP titrated to home settings (4) Tobacco abuse: Code(s): Z72.0 - Tobacco use Status: Acute Assessment and Plan: Patient smokes 6 cigarettes per day Continue 7 mg nicotine patch Educated on smoking cessation, however patient is not motivated to quit smoking at this time (5) Prostate CA: Code(s): C61 - Malignant neoplasm of prostate Status: Acute Assessment and Plan: Chronic, treated with radiation therapy Continue with outpatient follow-up (6) Acute hypokalemia: Code(s): E87.6 - Hypokalemia Status: Acute Assessment and Plan: Resolved. Potassium 3.5 today and tolerating PO intake Magnesium within normal limits Monitor BMP and supplemented as needed (7) Ischemic cardiomyopathy: Code(s): I25.5 - Ischemic cardiomyopathy Status: Acute Assessment and Plan: Patient with recent STEMI December 2020 Continue aspirin and Plavix Continue statin Subjective Date/time seen: 03/12/22 14:49 Interval history: Date of service: 03/12/2022 Iftikhar Jimenez is a 66-year-old male with a history of CAD, CVA, GERD, LIBRADO, pulmonary hypertension, systolic CHF, and tobacco abuse who is seen in follow-up for small bowel obstruction. He is feeling well today. He has no abdominal pain. He denies bloating. He is tolerating a full liquid diet. He is passing flatus. No bowel movement today but reports having a bowel movement yesterday. He has been up walking around the halls and tolerating this well. He denies nausea or vomiting. No shortness of breath, cough, or chest pain. He is very eager for discharge home. He states that his brother recently had a stroke and he really wants to go and check in on him, but he knows he needs to get himself well before he can care for his brother. Review of Systems Review of Systems: All systems reviewed & are unremarkable except as noted in HPI and below Exam Narrative: General: Thin, well-appearing 66-year-old -male, sitting up in bed, comfortable, NARD Neuro: awake, alert and oriented x4, speech clear, no focal neuro deficits noted HEENMT: normocephalic, atraumatic, EOMI, sclerae anicteric Respiratory: clear to auscultation bilaterally, nonlabored breathing Cardio: regular rate, regular rhythm with S1-S2 Abdomen: Slightly protuberant, normoactive bowel sounds, soft, nontender to palpation Extremities: no edema, erythema, or tenderness
[2022-03-12] MEDS: LORazepam INJ (*CRX) 2 MG/ML VIAL 0.5 MG IV PUSH (21:09)
[2022-03-12 22:00] VITALS: BP 107/62; PULSE 65; RESP 16; TEMP 36.2; O2SAT 93
--- NOTE | 2022-03-13 02:00 | PCRCNOTE ---
patient stated that he does not use a cpap/bipap at home; he refused use of hospital unit
[2022-03-13 05:16] VITALS: BP 98/53; PULSE 62; RESP 16; TEMP 36.2; O2SAT 94
[2022-03-13 06:19] LABS: Mean Corpuscular HGB Conc 28.6 g/dl (32-36); Mean Corpuscular Hemoglobin 29.7 pg (26-34); Mean Corpuscular Volume 103.9 fl (80-100); Mean Platelet Volume 10.1 fl (7.4-10.4); Platelet Count Result 288 k/mm3 (150-375); Red Blood Count 3.37 M/mm3 (4.6-6.20); Red Cell Distribution Width 14.2 % (11.5-14.5); White Blood Count 5.4 K/mm3 (4.5-10.0)
[2022-03-13 06:39] LABS: Albumin Level 2.6 g/dL (3.5-5.1); Anion Gap 2 mmol/L (8-16); Blood Urea Nitrogen 15 mg/dL (9-20); Calcium 7.6 mg/dL (8.4-10.2); Carbon Dioxide 26 mmol/L (22-30); Chloride 108 mmol/L (98-107); Estimated CRCL calculation 70 ml/min; Estimated Glomerular Filt Rate > 60; Glucose 78 mg/dL (65-110); Magnesium 1.9 mg/dL (1.6-2.3); Potassium 3.7 mmol/L (3.4-5.0); Sodium 136 mmol/L (137-145)
[2022-03-13 08:00] VITALS: O2SAT 94
--- NOTE | 2022-03-13 09:05 | PM.PNGS ---
Progress Note: A&P Assessment and Plan (1) Small bowel obstruction: Code(s): K56.609 - Unspecified intestinal obstruction, unspecified as to partial versus complete obstruction Status: Acute Assessment and Plan: Initial imaging suggested small bowel obstruction. It is unclear if this is a small bowel obstruction related to adhesions from previous inflammation or radiation therapy from his prostate cancer, versus an ileus. SBFT on 03/09 showed contrast in the distal nondilated small bowel at 9.5 hours, but had not reached the colon. the plain x-ray on 03/10 showed oral contrast in the colon and he began moving his bowels. He is tolerating full liquids and now also supplements. Obstructive series morning of 03/11 and 03/12 was reviewed. Those of 03/11 showed dilated small bowel and some residual oral contrast in the colon, but some contrast has moved through in comparison to the previous x-rays. Plain films of the abdomen 03/12 revealed still a few diet loops of small bowel but plenty of gas in the colon and the patient feels ok with no abd. pain and has had another BM in last 24 hrs. I have now moved patient up to a low-fiber diet and had a thorough discussion with him about both the possible etiologies of his small bowel problem and what his diet should be like for the next 2 days at home. Hospitalist started him on Amitiza BID. If he seems to be having nausea associated with this medication over the next few doses, then we may need to stop this. At this time and did not appear to be giving him nausea. Therefore will leave up to the hospitalist as to sending him home on this versus the Relistor that he was on at home per his pain medicine doctor. Since he probably has a contract with his pain medicine doctor I would suggest that there be close contact with that physician as the patient is discharge. All records from this hospitalization should be faxed to that doctor if at all possible. I have discussed this with the patient's nurse. The patient is still a very high risk surgical candidate given his multiple medical problems and recent cardiac stenting, recent pelvic radiation, and we will take it very slowly in advancing his diet and try to avoid surgery if possible. He stated today he could not tolerate chocolate Ensure but did do okay with the of the Vanilla variety of the same. Will try to come up with a supplement that is low in fiber that he could take here and at home while he tries to get through this. Please be sure patient then has access to order whatever we determine will work. I believe that home health is olsen for this patient who does not have full insight into all his problems. (2) Smoker: Code(s): F17.200 - Nicotine dependence, unspecified, uncomplicated Status: Acute Assessment and Plan: Encouraged cessation. Patient now on a nicotine patch (3) GERD (gastroesophageal reflux disease): Code(s): K21.9 - Gastro-esophageal reflux disease without esophagitis Status: Acute Assessment and Plan: Changed IV Pepcid to PO on going in this could be changed to oral when he goes home (4) Chronic pain: Code(s): G89.29 - Other chronic pain Status: Acute Assessment and Plan: The patient describes this as pain all all over like body aches with the flu. He has seen a pain medicine doctor as an outpatient & plans to follw with him. he will follow up once he leaves the hospital. He was on Relistor when he came in and probably will resume this when he goes home unless the hospitalist feel that Amitiza is a better choice for him. He states that he takes hydrocodone 4 times a day typically at home. (5) Ischemic cardiomyopathy: Code(s): I25.5 - Ischemic cardiomyopathy Status: Acute Assessment and Plan: Consider Cardiology consult for pre-operative cardiac risk assessment if the patient needs surgical exploration. (6) Prostate CA: Code(s):
[2022-03-13] MEDS: ASPIRIN 81 MG CHEWABLE TABLET PO (09:32)
[2022-03-13] MEDS: NICOTINE (*PBKC) 7 MG PATCH 1 PATCH TRANSDERM (09:32)
[2022-03-13] MEDS: CLOPIDOGREL BISULFATE 75 MG TABLET PO (09:33)
[2022-03-13] MEDS: ATORVASTATIN 40 MG TABLET 80 MG PO (09:33)
[2022-03-13] MEDS: VENLAFAXINE HCL XR 37.5 MG CAP PO (09:33)
[2022-03-13] MEDS: PREGABALIN (*CRX) 75 MG CAPSULE 150 MG PO ×2 (09:46→13:33)
--- NOTE | 2022-03-13 11:47 | P.DS_ITS ---
DS: Admitting Diagnosis Discharge Date 03/13/2022 Admitting Diagnosis Small-bowel obstruction DS: Discharge Diagnosis Discharge Diagnosis (1) Small bowel obstruction: Code(s): K56.609 - Unspecified intestinal obstruction, unspecified as to partial versus complete obstruction Status: Acute Assessment and Plan: Abdominal x-ray showed dilated small bowel loops consistent with partial obstruction. CT of the abdomen/pelvis showed transition point in the mid lower abdomen * He was seen in consultation by General surgery * Unclear if this is related to adhesions vs radiation therapy from prostate cancer vs ileus * Small-bowel follow-through on 03/09/22 showed nondilated small bowel with c ontrast reaching the small bowel in 9.5 hours, did not reach the colon * NG tube was removed on 03/09/22 * Repeat abdominal x-ray showed interval improvement * Diet was slowly advanced and he was eventually able to tolerate a low-fiber diet which he will continue on discharge * Bowel function returned (2) Systolic CHF: Code(s): I50.20 - Unspecified systolic (congestive) heart failure Status: Acute Assessment and Plan: Not in acute exacerbation * Echo from 12/31/21 showed systolic function 45-50% with moderate hypokinesis of the mid and basal anterolateral gonzáles with mild hypokinesis of the basal inferior wall * Patient euvolemic (3) LIBRADO (obstructive sleep apnea): Code(s): G47.33 - Obstructive sleep apnea (adult) (pediatric) Status: Acute Assessment and Plan: No issues * CPAP titrated to home settings during admission * Continue home CPAP (4) Tobacco abuse: Code(s): Z72.0 - Tobacco use Status: Acute Assessment and Plan: Patient smokes 6 cigarettes per day * 7 mg nicotine patch provided during admission * Educated on smoking cessation for 5 minutes however patient is not motivated to quit smoking at this time (5) Prostate CA: Code(s): C61 - Malignant neoplasm of prostate Status: Acute Assessment and Plan: Chronic, treated with radiation therapy * Continue with outpatient follow-up (6) Acute hypokalemia: Code(s): E87.6 - Hypokalemia Status: Resolved Assessment and Plan: Resolved. * Potassium was supplemented as needed and levels normalized (7) Ischemic cardiomyopathy: Code(s): I25.5 - Ischemic cardiomyopathy Status: Acute Assessment and Plan: Patient with recent STEMI December 2020 * Continue aspirin and Plavix * Continue statin * Cardiology follow-up as scheduled (8) Chronic pain: Code(s): G89.29 - Other chronic pain Status: Acute Assessment and Plan: Established with pain management in [place]. * Records have been sent to his pain management provider * Continue Relistor * Patient takes [place] q4h prn * He will need to follow up with his pain management provider to consider alternative regimens for pain control as chronic narcotics put him at risk for SBO DS: Summary Hospital Course Hospital Course: Date of admission: 03/07/2022 Date of discharge: 03/13/2022 Iftikhar Jimenez is a 66-year-old male with a history of CAD, CVA, GERD, LIBRADO, pulmonary hypertension, systolic CHF, chronic pain on daily narcotics, and tobacco abuse?who presented to the emergency department on 03/07/2022 with complaints of nausea, vomiting, abdominal pain and constipation for 6 days. On presentation to the ED, CT of the chest/abdomen/pelvi
--- NOTE | 2022-03-13 11:47 | PM.DS ---
DS: Admitting Diagnosis Discharge Date 03/13/2022 Admitting Diagnosis Small-bowel obstruction DS: Discharge Diagnosis Discharge Diagnosis (1) Small bowel obstruction: Code(s): K56.609 - Unspecified intestinal obstruction, unspecified as to partial versus complete obstruction Status: Acute Assessment and Plan: Abdominal x-ray showed dilated small bowel loops consistent with partial obstruction. CT of the abdomen/pelvis showed transition point in the mid lower abdomen He was seen in consultation by General surgery Unclear if this is related to adhesions vs radiation therapy from prostate cancer vs ileus Small-bowel follow-through on 03/09/22 showed nondilated small bowel with contrast reaching the small bowel in 9.5 hours, did not reach the colon NG tube was removed on 03/09/22 Repeat abdominal x-ray showed interval improvement Diet was slowly advanced and he was eventually able to tolerate a low-fiber diet which he will continue on discharge Bowel function returned (2) Systolic CHF: Code(s): I50.20 - Unspecified systolic (congestive) heart failure Status: Acute Assessment and Plan: Not in acute exacerbation Echo from 12/31/21 showed systolic function 45-50% with moderate hypokinesis of the mid and basal anterolateral gonzáles with mild hypokinesis of the basal inferior wall Patient euvolemic (3) LIBRADO (obstructive sleep apnea): Code(s): G47.33 - Obstructive sleep apnea (adult) (pediatric) Status: Acute Assessment and Plan: No issues CPAP titrated to home settings during admission Continue home CPAP (4) Tobacco abuse: Code(s): Z72.0 - Tobacco use Status: Acute Assessment and Plan: Patient smokes 6 cigarettes per day 7 mg nicotine patch provided during admission Educated on smoking cessation for 5 minutes however patient is not motivated to quit smoking at this time (5) Prostate CA: Code(s): C61 - Malignant neoplasm of prostate Status: Acute Assessment and Plan: Chronic, treated with radiation therapy Continue with outpatient follow-up (6) Acute hypokalemia: Code(s): E87.6 - Hypokalemia Status: Resolved Assessment and Plan: Resolved. Potassium was supplemented as needed and levels normalized (7) Ischemic cardiomyopathy: Code(s): I25.5 - Ischemic cardiomyopathy Status: Acute Assessment and Plan: Patient with recent STEMI December 2020 Continue aspirin and Plavix Continue statin Cardiology follow-up as scheduled (8) Chronic pain: Code(s): G89.29 - Other chronic pain Status: Acute Assessment and Plan: Established with pain management in [place]. Records have been sent to his pain management provider Continue Relistor Patient takes [place] q4h prn He will need to follow up with his pain management provider to consider alternative regimens for pain control as chronic narcotics put him at risk for SBO DS: Summary Hospital Course Hospital Course: Date of admission: 03/07/2022 Date of discharge: 03/13/2022 Iftikhar Jimenez is a 66-year-old male with a history of CAD, CVA, GERD, LIBRADO, pulmonary hypertension, systolic CHF, chronic pain on daily narcotics, and tobacco abuse?who presented to the emergency department on 03/07/2022 with complaints of nausea, vomiting, abdominal pain and constipation for 6 days. On presentation to the ED, CT of the chest/abdomen/pelvis showed distal small-bowel obstruction with transition point in the mid lower abdomen possibly secondary to adhesions. He was admitted to the hospitalist service for further evaluation and management and was seen in consultation by General surgery. Please see above for further details. His symptoms improved following NG decompression and bowel rest. He was eventually able to advance his diet and tolerated a low-fiber diet which he will continue. He will need to follow-up with his syeda
--- NOTE | 2022-03-13 15:41 | PCNFU ---
Nutrition Follow-Up Complete: Altered GI function R/T small bowel obstruction AEB NPO status Goal: Pt to meet >50% of estimated nutritional needs Pt is progressing towards goal. Continue with current goal. Pt current nutrition is Low fiber diet and dietary supplements Last recorded weight is 61.3 kg, stable. Bowel Motility: +BM reported 03/12 Labs Reviewed: Hgb 10.0, Hct 35.0, Alb 2.6, Na 136, Ca 7.6 Meds Noted:Aspirin, Lipitor, Plavix, Nicotine, Lyrica, Venlafaxine Hcl Skin: WNL Additional Notes: Pt has been advance from full liquid diet to low fiber diet. Report oral intake is 100% of low fiber diet. Intake appears to be improving. Plan is for pt to discharge today (03/13/22). Agree with current diet orders. Will continue to follow if pt is not d/c. Will monitor labs, medication, wt and reported intake every 5 days
== END 2022-03-13 14:17 | disposition home or self-care (01) | DRG 389 ==
PROVIDERS: Nurse Practitioner; Nurse Practitioner Family; Surgery; Admitting Provider Internal Medicine; PCP Hospitalist; Visit Provider Physician Assistant
DX: K56.51 Intestinal adhesions [bands], with partial obstruction (principal); I50.22 Chronic systolic (congestive) heart failure; F11.20 Opioid dependence, uncomplicated; Z68.1 Body mass index [BMI] 19.9 or less, adult; R63.6 Underweight; G47.33 Obstructive sleep apnea (adult) (pediatric); F17.210 Nicotine dependence, cigarettes, uncomplicated; C61 Malignant neoplasm of prostate; E87.6 Hypokalemia; I25.5 Ischemic cardiomyopathy; G89.29 Other chronic pain; K59.00 Constipation, unspecified; I25.10 Atherosclerotic heart disease of native coronary artery without angina pectoris; R07.0 Pain in throat; R13.10 Dysphagia, unspecified; K21.9 Gastro-esophageal reflux disease without esophagitis; I25.2 Old myocardial infarction; Z86.73 Personal history of transient ischemic attack (TIA), and cerebral infarction without residual deficits; Z95.5 Presence of coronary angioplasty implant and graft
CPT/HCPCS: 36415; 74018; 74019; 74250; 80048; 80053; 81001; 82040; 83605; 83735; 84100; 84155; 84484; 85025; 85027; 85610; 85730; 86850; 86900; 86901; 97161; 97165; A9270; J1170; J1650; J2060; J2405; J7042

== ENCOUNTER 2022-12-02 13:53 | Outpatient (CLI) | payer MEDICARE, MEDICAID, SELFPAY ==
[2022-12-02 15:48] LABS: Alanine Aminotransferase 17 U/L (6-50); Albumin Level 4.4 g/dL (3.5-5.1); Alkaline Phosphatase 122 U/L (38-126); Anion Gap 7 mmol/L (8-16); Aspartate Amino Transferase 23 U/L (17-59); Bilirubin,Total 0.8 mg/dL (0.2-1.3); Blood Urea Nitrogen 22 mg/dL (9-20); Calcium 9.1 mg/dL (8.4-10.2); Carbon Dioxide 30 mmol/L (22-30); Chloride 102 mmol/L (98-107); Estimated Glomerular Filt Rate > 60; Glucose 91 mg/dL (65-110); Potassium 3.9 mmol/L (3.4-5.0); Sodium 139 mmol/L (137-145)
[2022-12-02 16:47] LABS: Vitamin D 25 Hydroxy 61.6 ng/mL
== END 2022-12-02 13:54 | disposition home or self-care (01) ==
LOC: ANHLAB 13:55
PROVIDERS: PCP Hospitalist; Visit Provider Internal Medicine Cardiovascular Disease
DX: I25.5 Ischemic cardiomyopathy (principal); E55.9 Vitamin D deficiency, unspecified
CPT/HCPCS: 36415; 80053; 82306